=== PATIENT | male | born 1960 | race Caucasian/White ===

== ENCOUNTER 2024-07-02 21:09 | Inpatient (IN) ==
[2024-07-02 21:59] LABS: Albumin Globulin Ratio 1.4 (0.9-2); Albumin Level 3.8 gm/dl (3.4-5.0); Bilirubin,Total 0.8 mg/dl (0.2-1.0); Calcium 8.9 mg/dl (8.6-10.3); Creatinine Clr Calc Pharmacy 66.6 ml/min; Globulin 2.7 gm/dl (2.5-4.0); Potassium 3.9 mmol/L (3.5-5.1); Total Protein 6.5 gm/dl (6.0-8.3)
--- NOTE | 2024-07-02 22:10 | Emergency Department Note ---
Impression & Plan Post-operative infection ED Provider Note CHIEF COMPLAINT: Hand swelling and pain HISTORY OF PRESENT ILLNESS: This 63-year-old patient presents to the emergency department via private vehicle with his for evaluation of postsurgical complications of the right hand. The patient had a closed reduction, with internal fixation using 2 pins to repair a closed fracture of the right fifth metacarpal on 06/14. The patient states he went to his 2-week follow-up appointment with no complications. He states over the last few days he noted some swelling to the hand, and increased pain. He has been taking his 5 mg oxycodone more frequently, and was increasing the dose to 10 mg. He had contacted Dr. Schaffer, who is the orthopedic surgeon on his case. He was evaluated by Dr. Schaffer, however since that time the swelling has worsened. He reports drainage from the proximal pin insertion site, with increased redness that is now extending to the mid forearm. He denies fever. 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 REVIEW OF SYSTEMS: A review of systems was performed with positives and pertinent negatives listed in the history of present illness. All other systems were reviewed and are negative. ALLERGIES: See below MEDICATIONS: See below PMH: See below PHYSICAL EXAM: VITALS: Vitals are noted on the nurse's note and reviewed by myself. Vital signs stable. GENERAL: 63-year-old male, in no acute distress, nondiaphoretic, well-developed well-nourished. SKIN: Significant edema with erythema present to the entirety of the right hand, including all digits, and surfaces. Sanguinous drainage present from the insertion site of the proximal pin. Cellulitis is extending to the middle right forearm. HEART: Regular rate and rhythm without murmurs gallops or rubs. LUNGS: Clear to auscultation bilaterally without wheezes, rales or rhonchi. No retractions or accessory muscle use. MUSCULOSKELETAL: Patient unable to perform range of motion of the digits, or wrist of the right upper extremity. Tenderness to palpation extending from the mid forearm to the distal aspects of the digits of the hand. Capillary refill <3, sensation is intact to dull and sharp. Increased tenderness to palpation along the ulnar nerve. NEURO: Patient was alert and oriented to person place and time. No focal neurological deficits. MEDICAL DECISION MAKING: The patient is a pleasant 63-year-old male who arrives to the emergency department for evaluation of the above-stated complaint. A saline lock was established, CBC, CMP were obtained as well as x-ray imaging of the right hand. CBC shows leukocytosis, 14.7, with a stable hemoglobin and hematocrit, CMP does show slight hyponatremia at 130, with no other metabolic abnormality. X-ray imaging of the right hand per my interpretation shows significant soft tissue swelling, consistent with inflammation and likely infection. Culture was obtained from the surgical insertion site of the proximal pin for guidance on antimicrobial coverage. I spoke with Dr. Schaffer, from orthopedics who was agreeable to the plan of care including IV antibiotics, and pain control. Dr. Schaffer stated he would ideally like to see the patient in an outpatient setting tomorrow, as long as the patient's pain is under control. The patient was provided 2 doses of IV morphine, as well as 3 g of IV Ancef. After the initial dose of IV morphine, the patient had significant return of pain, more severe than upon arrival. A second dose was ordered which did control the patient's pain at that time. I do believe the patient requires hospital admission for IV antibiotics, as well as pain control. Dr. Schaffer agreed to the plan for admission to medicine with his consultation. The patient was agreeable to the plan of care as well. Contact was made with the [facility] hospitalist group, Dr. Denson who agreed to accept the patient under his care. Please refer to his documentation for further patient workup and treatment. DIFFERENTIAL DIAGNOSIS: Cellulitis, abscess, MRSA infection, DVT, necrotizing fasciitis, dermatitis, osteomyelitis, drug eruption, allergic reaction, as well as other pathologies. The chart was completed utilizing [employer] Speech voice recognition software. Grammatical errors, random word insertions, pronoun errors, and incomplete sentences are an occasional consequence of this system due to software limitations, ambient noise, and hardware issues. Any formal questions or concerns about the content, text, or information contained within the body of this dictation should be directly addressed to the physician for clarification. Past Med/Surg History Problem List (Updated 07/03/24 @ 02:27 by MASTER Fuchs) Post-operative infection (Acute) History of colon polyps Encounter for pre-operative examination Medical History BPH (benign prostatic hyperplasia) GERD (gastroesophageal reflux disease) History of colon polyps Surgical History Hx of vasectomy History of tooth extraction Hx of LASIK History of cataract surgery right/left History of hernia repair inguinal History of tonsillectomy History of colonoscopy Family History Uncle Family history of diabetes mellitus Grandmother (Paternal) Diabetes Family history of diabetes mellitus Father Hypertension Stroke Mother Lung cancer Grandfather (Maternal) Myocardial infarction Grandfather (Paternal) Myocardial infarction Other No family history of adverse response to anesthesia Denies family history of Ovarian cancer Prostate cancer Breast cancer Colorectal cancer Social History Smoking Status: Never smoker Second Hand Exposure: Yes ( A CHILD); Do You Dip or Chew Tobacco: No; Hx Alcohol Use: No Hx Substance Use: No Preferred Language: Jamaican Communication Ability: Effective Visual Impairment: Limited Hearing Ability: Normal 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 Beliefs That Will Affect Care: None marital status: Current Living Situation: Spouse current occupational status: employed current occupation: [employer] How many Children do You have: 4 Feels Safe at Home: Yes Childhood Exposure to Second-Hand Smoke: Yes Diet: regular caffeine: No Dental Care, Regularly: Yes Physical Activity Frequency: 3-4 Times per Week Seatbelt Use: always Sunscreen Use: Yes Assistive Devices: Glasses Allergies Allergies Allergy/AdvReac Type Severity Reaction Status Date / Time No Known Allergies Allergy Verified 06/14/24 11:07 Home Meds Home Medications Medication Instructions Recorded Confirmed celecoxib 200 mg capsule 200 mg PO BID PRN DIRECTED 07/02/24 07/02/24 oxycodone 5 mg tablet 5 mg PO UD PRN Pain 07/02/24 07/02/24 Results & Data (ED) Vital Signs Vital Signs - 24 hr 07/02/24 21:15 07/02/24 22:41 07/03/24 00:00 Temperature 36.8 C Temperature Source Temporal Artery Scan Pulse Rate 96 H Pulse Rate [Finger] 78 82 Respiratory Rate 16 16 19 Respiratory Effort / Characteristics Non-Labored Spontaneous Respiratory Depth Normal Blood Pressure 125/73 Blood Pressure [Left Arm] 124/74 167/85 H Blood Pressure Mean 90 Blood Pressure Mean [Left Arm] 90 112 Pulse Oximetry 93 94 92 Oxygen Delivery Method Room Air Room Air Sepsis Recent Fever Within 48 Hours No Sepsis New/Unexplained Change in Mental Status No Sepsis Action Taken by Nursing No Action Required Home Medications Current Medication List: was personally reviewed by me Laboratory Data Attestation: I reviewed the patient's lab results. 07/02/24 21:24 07/02/24 21:24 Lab Results 07/02/24 Range/Units 21:24 WBC 14.70 H (4.8-10.8) K/ul RBC 4.43 L (4.70-6.10) M/uL Hgb 13.8 L (14.0-18.0) g/dl Hct 39.9 L (42.0-52.0) % MCV 90.1 (80.0-100.0) fL MCH 31.2 (25.0-34.0) pg MCHC 34.6 (32.0-36.0) g/dL RDW Std Deviation 40.0 (36.4-46.3) fL RDW Coeff of Cali 12.0 (11.5-14.5) % Plt Count 157 (130-400) K/uL MPV 10.5 (9.4-12.4) fL Immature Gran % (Auto) 0.5 % Neut % (Auto) 91.0 % Lymph % (Auto) 2.0 % Pitkin % (Auto) 6.3 % Eos % (Auto) 0.0 % Baso % (Auto) 0.2 % Neut # (Auto) 13.37 H (1.40-6.50) K/uL Lymph # (Auto) 0.30 L (1.20-3.40) K/uL Pitkin # (Auto) 0.93 H (0.11-0.59) K/uL Eos # (Auto) 0.00 (0.00-0.50) K/uL Baso # (Auto) 0.03 (0.00-0.20) K/uL Immature Gran # (Auto) 0.07 (0.01-0.20) K/uL Sodium 130 L (136-145) mmol/L Potassium 3.9 (3.5-5.1) mmol/L Chloride 98 (98-107) mmol/L Carbon Dioxide 25 (21-32) mmol/L Anion Gap 7 (3-11) BUN 16 (6-23) mg/dl Creatinine 1.07 (0.6-1.4) mg/dl Est Cr Clr Drug Dosing 66.6 ml/min eGFR 77.49 BUN/Creatinine Ratio 15.0 (10-20) Glucose 111 H (70-99(Fasting)) mg/dl Calcium 8.9 (8.6-10.3) mg/dl Total Bilirubin 0.8 (0.2-1.0) mg/dl AST 30 (13-39) U/L ALT 25 (7-52) U/L Alkaline Phosphatase 68 (34-104) U/L Total Protein 6.5 (6.0-8.3) gm/dl Albumin 3.8 (3.4-5.0) gm/dl Globulin 2.7 (2.5-4.0) gm/dl Albumin/Globulin Ratio 1.4 (0.9-2) Administered Medications Morphine Sulfate (Morphine Sulfate 4 Mg/Ml 1 Ml Carp\Vial) 4 mg IV Q3H PRN PRN Reason: Severe Pain (Scale 7, 8, 9,10) Stop: 07/17/24 01:08 Last Admin: 07/03/24 01:31 Dose: 4 mg Documented By: KACEY Discontinued Medications Cefazolin Sodium 3,000 mg/ (Dextrose) 72.5 mls @ 145 mls/hr IV NOW STA Stop: 07/02/24 22:52 Last Infusion: 07/02/24 23:19 Dose: Infused Documented By: Admin: 07/02/24 22:38 Dose: 145 mls/hr Documented By: LISA Sodium Chloride (Nss) 1,000 mls @ 999 mls/hr IV .Q1H1M STA Stop: 07/03/24 02:16 Last Admin: 07/03/24 01:24 Dose: 999 mls/hr Documented By: KACEY Ceftriaxone Sodium (Rocephin) 2,000 mg in 50 mls @ 100 mls/hr IV ONE STA Stop: 07/03/24 01:43 Last Admin: 07/03/24 01:23 Dose: 100 mls/hr Documented By: KACEY Morphine Sulfate (Morphine Sulfate 4 Mg/Ml 1 Ml Carp\Vial) 4 mg IV NOW STA Stop: 07/02/24 22:17 Last Admin: 07/02/24 22:28 Dose: 4 mg Documented By: LISA Morphine Sulfate (Morphine Sulfate 4 Mg/Ml 1 Ml Carp\Vial) 4 mg IV NOW STA Stop: 07/03/24 00:29 Last Admin: 07/03/24 00:36 Dose: 4 mg Documented By: APOLINAR Imaging Data Attestation: I personally reviewed and interpreted this imaging study as follows: Radiologist's Impression: Hand X-Ray 07/02/24 22:10 Exam(s): XR RIGHT HAND, 3 views EXAM: XR Right Hand Complete, 3 Views CLINICAL HISTORY: Reason for exam: infection. TECHNIQUE: Frontal, lateral and oblique views of the right hand. COMPARISON: 06/13/2024 FINDINGS: Bones/joints: Mildly angulated intra-articular comminuted fracture of the fifth metatarsal base is treated with two percutaneously placed metallic needles. No acute fracture. No dislocation. Soft tissues: Demonstrates more dorsally soft tissue edema/swelling of the right hand, most likely postinflammatory/infectious in nature. . IMPRESSION: Significant soft tissue edema/swelling of the right hand more dorsally demonstrated, likely post inflammatory/infectious in nature. Recommend clinical correlation. Previously noted intra-articular comminuted fracture of the fifth metatarsal base is treated with 2 percutaneously placed metallic needles. . Electronically signed by: Velma Terry MD, GIANFRANCO 07/03/24 00:41 AM Discharge Plan Visit Data Chief Complaint: Referred by Doctor Stated Complaint: TEAM PHYS CALED FOR IV ANTIBOTIC ED Provider: Arden Pierre ED Midlevel Provider: Helene Albarado Discharge Problem: Post-operative infection Discharge Instructions Interventions: ED Discharge Assessment Last Done: 07/03/24 01:45 Discharge Problem: Post-operative infection Qualifiers: Encounter type: initial encounter Postoperative infection type: unspecified type Qualified Code(s): T81.40XA - Infection following a procedure, unspecified, initial encounter
[2024-07-02 22:14] LABS: Hematocrit (blood only) 39.9 % (42.0-52.0); Hemoglobin 13.8 g/dl (14.0-18.0); Mean Corpuscular Hemoglobin 31.2 pg (25.0-34.0); Mean Corpuscular Hgb Conc 34.6 g/dL (32.0-36.0); Mean Corpuscular Volume 90.1 fL (80.0-100.0); Mean Platelet Volume 10.5 fL (9.4-12.4); Platelet Count 157 K/uL (130-400); Red Blood Count 4.43 M/uL (4.70-6.10)
[2024-07-02] MEDS: MoRPHine SULFATE 4 MG/ML 1 ML CARP\\VIAL IV STA (22:28)
[2024-07-02] MEDS: ceFAZolin 3,000 MG in DEXTROSE 5% 50 ML IV STA (22:38)
[2024-07-02 22:49] LABS: Basophils # (auto) 0.03 K/uL (0.00-0.20); Basophils % (auto) 0.2 %; Immature Granulocytes # (auto) 0.07 K/uL (0.01-0.20); Immature Granulocytes % (auto) 0.5 %; Monocytes # (auto) 0.93 K/uL (0.11-0.59); Monocytes % (auto) 6.3 %; Neutrophils # (auto) 13.37 K/uL (1.40-6.50)
[2024-07-03] MEDS: MoRPHine SULFATE 4 MG/ML 1 ML CARP\\VIAL IV STA ×2 (00:36→02:59)
--- NOTE | 2024-07-03 00:42 | XRay Report ---
Exam(s): XR RIGHT HAND, 3 views EXAM: XR Right Hand Complete, 3 Views CLINICAL HISTORY: Reason for exam: infection. TECHNIQUE: Frontal, lateral and oblique views of the right hand. COMPARISON: 06/13/2024 FINDINGS: Bones/joints: Mildly angulated intra-articular comminuted fracture of the fifth metatarsal base is treated with two percutaneously placed metallic needles. No acute fracture. No dislocation. Soft tissues: Demonstrates more dorsally soft tissue edema/swelling of the right hand, most likely postinflammatory/infectious in nature. . IMPRESSION: Significant soft tissue edema/swelling of the right hand more dorsally demonstrated, likely post inflammatory/infectious in nature. Recommend clinical correlation. Previously noted intra-articular comminuted fracture of the fifth metatarsal base is treated with 2 percutaneously placed metallic needles. . Electronically signed by: Velma Terry MD, GIANFRANCO 07/03/24 00:41 AM
[2024-07-03] MEDS ORDERED: VANCOMYCIN CONSULT ACTIVE PRN ×2 (01:04→16:35)
[2024-07-03] MEDS ORDERED: MoRPHine SULFATE 2 MG/ML CARP IV PRN (01:09)
--- NOTE | 2024-07-03 01:14 | History & Physical Report ---
Date of Service July 03, 2024 Assessment & Plan (1) Post-operative infection: (2) Closed right hand fracture: Plan Postoperative wound infection right hand fracture with pin placement- Surgery took place 06/14/2024 Per patient history, he reports that the first 2 weeks there was no adverse symptoms Since that time he had gradually worsening pain until the past 3 days when it worsened considerably more, requiring oxycodone prescription to be called in He presented to the emergency department this evening due to weeping from his hand, and worsening pain and generalized ill symptoms X-ray shows soft tissue edema and appropriate metallic pin placement N.p.o. for possible procedure Acetaminophen 1 g IV every 8 hours as needed for mild pain or fever Morphine sulfate adjusted dosing 4 mg IV every 3 hours as needed for moderate pain Dilaudid 0.5 mg IV every 3 hours as needed for severe pain Zofran 4 mg IV every 6 hours as needed Given NSS 1 L bolus now, then maintenance fluids of NSS + KCl 20 mEq at 100 mL/h x 1 L Stop Ancef Vancomycin IV per pharmacokinetic monitoring Ceftriaxone 2 g IV every 24 hours Consult orthopedic surgery Dr. Schaffer, who is aware of the patient History of Present Illness Chief Complaint: The patient presents to the emergency department with worsening right hand pain, swelling and erythema over the past 5 days. He reports that he underwent orthopedic surgery on 06/14/2024, without incident for the first 2 weeks, and then started all some mild pain, that 3 days ago became more severe, reports a prescription for oxycodone was called in pharmacy. If come to the emergency department this evening with continued worsening of pain, but now is having oozing from his hand. Primary Care Provider: Angel Denise DO The patient is a 63-year-old male with past medical history significant for GERD, BPH,and colon polyps, who presents to the emergency department with signs and symptoms of postoperative wound infection right hand after having had surgery 06/14/24 and normal postop recovery for the first 2 weeks. He developed worsening symptoms as noted above, and came to the emergency department evening of 07/02-07/03 for further evaluation and treatment Allergies Allergy/AdvReac Type Severity Reaction Status Date / Time No Known Allergies Allergy Verified 06/14/24 11:07 Home Medications Medication Instructions Recorded Confirmed Type celecoxib 200 mg capsule 200 mg PO BID PRN DIRECTED 07/02/24 07/02/24 History oxycodone 5 mg tablet 5 mg PO UD PRN Pain 07/02/24 07/02/24 History Past Med/Surg History Problem List (Updated 07/03/24 @ 03:07 by Jean Carlos Denson MD) Closed right hand fracture Post-operative infection (Acute) History of colon polyps Encounter for pre-operative examination Medical History BPH (benign prostatic hyperplasia) GERD (gastroesophageal reflux disease) History of colon polyps Surgical History Hx of vasectomy History of tooth extraction Hx of LASIK History of cataract surgery right/left History of hernia repair inguinal History of tonsillectomy History of colonoscopy Family History Uncle Family history of diabetes mellitus Grandmother (Paternal) Diabetes Family history of diabetes mellitus Father Hypertension Stroke Mother Lung cancer Grandfather (Maternal) Myocardial infarction Grandfather (Paternal) Myocardial infarction Other No family history of adverse response to anesthesia Denies family history of Ovarian cancer Prostate cancer Breast cancer Colorectal cancer Social History Smoking Status: Never smoker Second Hand Exposure: Yes ( A CHILD); Do You Dip or Chew Tobacco: No; Hx Alcohol Use: Yes Alcohol type: wine Alcohol Intake Frequency: Monthly or Less Hx Substance Use: No Preferred Language: Setswana Communication Ability: Effective Visual Impairment: Limited Hearing Ability: Normal Flotation Tender Required: No Beliefs That Will Affect Care: None marital status: Current Living Situation: Spouse current occupational status: employed current occupation: [employer] How many Children do You have: 4 Feels Safe at Home: Yes Childhood Exposure to Second-Hand Smoke: Yes Diet: regular caffeine: No Dental Care, Regularly: Yes Physical Activity Frequency: 3-4 Times per Week Seatbelt Use: always Sunscreen Use: Yes Assistive Devices: Glasses Review of Systems Review of Systems: The patient denies chest pain, palpitations, shortness of breath, dyspnea on exertion, cough, lower extremity swelling, sore throat, fevers, chills, sweats, nausea, vomiting, diarrhea , constipation, abdominal pain, pelvic pain, blood in urine or stool, dysuria, urinary frequency or urgency, lightheadedness, dizziness, headache, memory loss, loss of consciousness, abnormal bruising or bleeding, imbalance, focal or generalized weakness, numbness or tingling in left arm or bilateral legs, generalized arthralgias or myalgias, back or neck pain, or night sweats. The review of systems is otherwise negative other than for that already noted above, and at least 10 systems have been reviewed. Physical Exam Physical Exam: The patient is awake, alert and oriented 3, well developed and well nourished, normocephalic and atraumatic, lying in bed and in no acute distress. HEENT--PERRL, EOMI, mucous membranes and oropharynx mildly dry. Neck--supple. No JVD. No bruits. Thyroid normal, trachea midline, no adenopathy. Heart--normal S1 and S2. No murmurs, rubs or gallops. Lungs--clear bilaterally, no respiratory distress, no accessory muscle use. Abdomen--normal bowel sounds and soft. Nontender. Nondistended, no hernias or masses, no organomegaly. Extremities--lower extremities no cyanosis or clubbing. No edema. There are good distal pulses b/l. Right hand with moderately severe swelling, erythema and warmth, with 2 pins laterally. Dermatologic--normal except for above related to right hand. No ascending lymphangitis noted Neurologic--cranial nerves II through XII grossly intact. Rheumatologic--normal range of motion. Psychiatric--normal affect. Results & Data Results & Data Vital Signs (Past 12 Hours) Vital Signs Temp Pulse Pulse Resp BP BP Pulse Ox 07/03/24 00:00 82 19 167/85 H 92 07/02/24 22:41 78 16 124/74 94 07/02/24 21:15 36.8 C 96 H 16 125/73 93 O2 Del Method 07/03/24 00:00 07/02/24 22:41 Room Air 07/02/24 21:15 Room Air Laboratory Results Laboratory Results WBC 14.70 K/ul (4.8-10.8) H 07/02/24 21:24 RBC 4.43 M/uL (4.70-6.10) L 07/02/24 21:24 Hgb 13.8 g/dl (14.0-18.0) L 07/02/24 21:24 Hct 39.9 % (42.0-52.0) L 07/02/24: MCV 90.1 fL (80.0-100.0) 07/02/24 21: MCH 31.2 pg (25.0-34.0) 07/02/24: MCHC 34.6 g/dL (32.0-36.0) 07/02/24: RDW Std Deviation 40.0 fL (36.4-46.3) 07/02/24: RDW Coeff of Cali 12.0 % (11.5-14.5) 07/02/24: Plt Count 157 K/uL (130-400) 07/02/24: MPV 10.5 fL (9.4-12.4) 07/02/24: Immature Gran % (Auto) 0.5 % 07/02/24: Neut % (Auto) 91.0 % 07/02/24: Lymph % (Auto) 2.0 % 07/02/24: Tripp % (Auto) 6.3 % 07/02/24: Eos % (Auto) 0.0 % 07/02/24: Baso % (Auto) 0.2 % 07/02/24: Neut # (Auto) 13.37 K/uL (1.40-6.50) H 07/02/24: Lymph # (Auto) 0.30 K/uL (1.20-3.40) L 07/02/24: Tripp # (Auto) 0.93 K/uL (0.11-0.59) H 07/02/24:24 Eos # (Auto) 0.00 K/uL (0.00-0.50) 07/02/24: Baso # (Auto) 0.03 K/uL (0.00-0.20) 07/02/24: Immature Gran # (Auto) 0.07 K/uL (0.01-0.20) 07/02/24 21: Sodium 130 mmol/L (136-145) L 07/02/24: Potassium 3.9 mmol/L (3.5-5.1) 07/02/24 21:24 Chloride 98 mmol/L (98-107) 07/02/24 21:24 Carbon Dioxide 25 mmol/L (21-32) 07/02/24 21:24 Anion Gap 7 (3-11) 07/02/24 21:24 BUN 16 mg/dl (6-23) 07/02/24 21:24 Creatinine 1.07 mg/dl (0.6-1.4) 07/02/24 21:24 Est Cr Clr Drug Dosing 66.6 ml/min 07/02/24 21:24 eGFR 77.49 07/02/24 21:24 BUN/Creatinine Ratio 15.0 (10-20) 07/02/24 21:24 Glucose 111 mg/dl (70-99(Fasting)) H 07/02/24 21:24 Calcium 8.9 mg/dl (8.6-10.3) 07/02/24 21:24 Total Bilirubin 0.8 mg/dl (0.2-1.0) 07/02/24 21:24 AST 30 U/L (13-39) 07/02/24 21:24 ALT 25 U/L (7-52) 07/02/24 21:24 Alkaline Phosphatase 68 U/L (34-104) 07/02/24 21:24 Total Protein 6.5 gm/dl (6.0-8.3) 07/02/24 21:24 Albumin 3.8 gm/dl (3.4-5.0) 07/02/24 21:24 Globulin 2.7 gm/dl (2.5-4.0) 07/02/24 21:24 Albumin/Globulin Ratio 1.4 (0.9-2) 07/02/24 21:24 Impressions Hand X-Ray 07/02/24 22:10 Exam(s): XR RIGHT HAND, 3 views EXAM: XR Right Hand Complete, 3 Views CLINICAL HISTORY: Reason for exam: infection. TECHNIQUE: Frontal, lateral and oblique views of the right hand. COMPARISON: 06/13/2024 FINDINGS: Bones/joints: Mildly angulated intra-articular comminuted fracture of the fifth metatarsal base is treated with two percutaneously placed metallic needles. No acute fracture. No dislocation. Soft tissues: Demonstrates more dorsally soft tissue edema/swelling of the right hand, most likely postinflammatory/infectious in nature. . IMPRESSION: Significant soft tissue edema/swelling of the right hand more dorsally demonstrated, likely post inflammatory/infectious in nature. Recommend clinical correlation. Previously noted intra-articular comminuted fracture of the fifth metatarsal base is treated with 2 percutaneously placed metallic needles. . Electronically signed by: Velma Terry MD, TAMEKAR 07/03/24 00:41 AM Code Status & VTE Plan Code Status Full code VTE Prophylaxis Plan VTE Prophylaxis will be ordered: Yes PG Care Time/CCT Total # of Minutes Spent Total Time Spent with Patient: Total time spent is greater than 50% in coordination of care (as documented) at patient's floor/unit and/or counseling patient: Coding Level of Care Code 78606 INT INP/OBS CARE 2/55MIN Diagnoses Post-operative infection T81.40XA Encounter type: initial encounter Postoperative infection type: unspecified type Closed right hand fracture S62.91XA (1) Post-operative infection Encounter type: initial encounter Postoperative infection type: unspecified type Qualified Code(s): T81.40XA - Infection following a procedure, unspecified, initial encounter
[2024-07-03] MEDS: cefTRIAXone SODIUM 2,000 MG/50 ML BAG IV STA (01:23)
[2024-07-03] MEDS: SODIUM CHLORIDE 0.9% 1,000 ML IV STA (01:24)
[2024-07-03] MEDS: MoRPHine SULFATE 4 MG/ML 1 ML CARP\\VIAL IV PRN ×2 (01:31→07:53)
[2024-07-03] MEDS ORDERED: ONDANSETRON INJ 2 MG/ML 2 ML VIAL IV PRN ×2 (02:12→11:53)
[2024-07-03] MEDS: VANCOMYCIN HCL 2,000 MG in SODIUM CHLORIDE 0.9% 500 ML IV STA (03:03)
[2024-07-03] MEDS: NSS + 20MEQ KCL 20 MEQ/1,000 ML BAG IV SCH (03:41)
[2024-07-03] MEDS: HYDROmorphone INJ 0.5 MG/0.5 ML SYR IV PRN (05:09)
--- NOTE | 2024-07-03 06:09 | Orthopedic Consultation ---
Date of Consultation July 03, 2024 Assessment & Plan (1) Post-operative infection: IMPRESSION: 2+ weeks s/p CRPP R 5th metacarpal fracture, that appears infected PLAN: Will obtain CT R hand to evaluate for abscess and osteiomylitis Keep NPO Continue IV Abx RICE Will plan at a minimum to remove the proximal pin at bedside after CT, but if abscess will plan on return to OR for removal of pin and I&D. Awaiting Gram stain and Cx results Continue pin care BID with 50:50 mix warm saline & peroxide. Continue care per Hospitalist service. History of Present Illness Reason for Consultation: Right Hand infection Requesting Physician: Venecia Schaffer MD Attending Physician: Jean Carlos Denson MD History of Present Illness 63 yo male s/p R 5th metacarpal CRPP 06/14/24 had increasing swelling of the hand and increased pain that worsened over the last few days despite increased pain medicine use. The proximal pin site started draining yesterday. He went to the ED and was admitted for IV antibiotics and pain control by the hospitalist service. He has been NPO since midnight. Allergies Allergy/AdvReac Type Severity Reaction Status Date / Time No Known Allergies Allergy Verified 06/14/24 11:07 Home Medications Medication Instructions Recorded Confirmed Type celecoxib 200 mg capsule 200 mg PO BID PRN DIRECTED 07/02/24 07/02/24 History oxycodone 5 mg tablet 5 mg PO UD PRN Pain 07/02/24 07/02/24 History Patient History Medical History BPH (benign prostatic hyperplasia) GERD (gastroesophageal reflux disease) History of colon polyps Surgical History Hx of vasectomy History of tooth extraction Hx of LASIK History of cataract surgery right/left History of hernia repair inguinal History of tonsillectomy History of colonoscopy Family History Uncle Family history of diabetes mellitus Grandmother (Paternal) Diabetes Family history of diabetes mellitus Father Hypertension Stroke Mother Lung cancer Grandfather (Maternal) Myocardial infarction Grandfather (Paternal) Myocardial infarction Other No family history of adverse response to anesthesia Denies family history of Ovarian cancer Prostate cancer Breast cancer Colorectal cancer Social History Smoking Status: Never smoker Second Hand Exposure: Yes ( A CHILD); Do You Dip or Chew Tobacco: No; Hx Alcohol Use: Yes Alcohol type: wine Alcohol Intake Frequency: Monthly or Less Hx Substance Use: No Preferred Language: Hungarian Communication Ability: Effective Visual Impairment: Limited Hearing Ability: Normal Engineering 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: No Beliefs That Will Affect Care: None marital status: Current Living Situation: Spouse current occupational status: employed current occupation: [employer] How many Children do You have: 4 Other Information That Helps Us Care for You: No Feels Safe at Home: Yes Safety Concerns: Feels Safe At This Time Childhood Exposure to Second-Hand Smoke: Yes Diet: regular caffeine: No Dental Care, Regularly: Yes Physical Activity Frequency: 3-4 Times per Week Seatbelt Use: always Sunscreen Use: Yes Assistive Devices: Glasses Assistive Devices Comment: Arm immobilzer Physical Exam Physical Exam: RUE: Sensation to light touch intact. Able to move thumb, IF, MF. BCR < 2 sec. Increased swelling from a day ago dorsum hand and digits. Pins in place. The proximal pin now with evidence of drainage. Proximal Jurgan ball with pressure on skin due to swelling. Hand is warm to touch, no significant erythema. Results & Data Vital Signs (Past 12 Hours) Vital Signs Temp Pulse Pulse Resp BP BP Pulse Ox 07/03/24 03:49 07/03/24 02:39 37.0 C 88 16 154/83 H 94 07/03/24 01:45 78 19 138/77 94 07/03/24 00:00 82 19 167/85 H 92 07/02/24 22:41 78 16 124/74 94 07/02/24 21:15 36.8 C 96 H 16 125/73 93 O2 Del Method 07/03/24 03:49 Room Air 07/03/24 02:39 Room Air 07/03/24 01:45 07/03/24 00:00 07/02/24 22:41 Room Air 07/02/24 21:15 Room Air Laboratory Results Laboratory Results WBC 14.70 K/ul (4.8-10.8) H 07/02/24 21:24 RBC 4.43 M/uL (4.70-6.10) L 07/02/24 21:24 Hgb 13.8 g/dl (14.0-18.0) L 07/02/24 21:24 Hct 39.9 % (42.0-52.0) L 07/02/24 21: MCV 90.1 fL (80.0-100.0) 07/02/24:24 MCH 31.2 pg (25.0-34.0) 07/02/24: MCHC 34.6 g/dL (32.0-36.0) 07/02/24: RDW Std Deviation 40.0 fL (36.4-46.3) 07/02/24: RDW Coeff of Cali 12.0 % (11.5-14.5) 07/02/24: Plt Count 157 K/uL (130-400) 07/02/24: MPV 10.5 fL (9.4-12.4) 07/02/24: Immature Gran % (Auto) 0.5 % 07/02/24: Neut % (Auto) 91.0 % 07/02/24: Lymph % (Auto) 2.0 % 07/02/24:24 Sherman % (Auto) 6.3 % 07/02/24: Eos % (Auto) 0.0 % 07/02/24: Baso % (Auto) 0.2 % 07/02/24:24 Neut # (Auto) 13.37 K/uL (1.40-6.50) H 07/02/24: Lymph # (Auto) 0.30 K/uL (1.20-3.40) L 07/02/24:24 Sherman # (Auto) 0.93 K/uL (0.11-0.59) H 07/02/24: Eos # (Auto) 0.00 K/uL (0.00-0.50) 07/02/24: Baso # (Auto) 0.03 K/uL (0.00-0.20) 07/02/24: Immature Gran # (Auto) 0.07 K/uL (0.01-0.20) 07/02/24: Sodium 130 mmol/L (136-145) L 07/02/24 21:24 Potassium 3.9 mmol/L (3.5-5.1) 07/02/24 21:24 Chloride 98 mmol/L (98-107) 07/02/24 21:24 Carbon Dioxide 25 mmol/L (21-32) 07/02/24 21:24 Anion Gap 7 (3-11) 07/02/24 21:24 BUN 16 mg/dl (6-23) 07/02/24 21:24 Creatinine 1.07 mg/dl (0.6-1.4) 07/02/24 21:24 Est Cr Clr Drug Dosing 66.6 ml/min 07/02/24 21:24 eGFR 77.49 07/02/24 21:24 BUN/Creatinine Ratio 15.0 (10-20) 07/02/24 21:24 Glucose 111 mg/dl (70-99(Fasting)) H 07/02/24 21:24 Calcium 8.9 mg/dl (8.6-10.3) 07/02/24 21:24 Total Bilirubin 0.8 mg/dl (0.2-1.0) 07/02/24 21:24 AST 30 U/L (13-39) 07/02/24 21:24 ALT 25 U/L (7-52) 07/02/24 21:24 Alkaline Phosphatase 68 U/L (34-104) 07/02/24 21:24 Total Protein 6.5 gm/dl (6.0-8.3) 07/02/24 21: Albumin 3.8 gm/dl (3.4-5.0) 07/02/24 21: Globulin 2.7 gm/dl (2.5-4.0) 07/02/24 21:24 Albumin/Globulin Ratio 1.4 (0.9-2) 07/02/24 21:24 Impressions Hand X-Ray 07/02/24 22:10 Exam(s): XR RIGHT HAND, 3 views EXAM: XR Right Hand Complete, 3 Views CLINICAL HISTORY: Reason for exam: infection. TECHNIQUE: Frontal, lateral and oblique views of the right hand. COMPARISON: 06/13/2024 FINDINGS: Bones/joints: Mildly angulated intra-articular comminuted fracture of the fifth metatarsal base is treated with two percutaneously placed metallic needles. No acute fracture. No dislocation. Soft tissues: Demonstrates more dorsally soft tissue edema/swelling of the right hand, most likely postinflammatory/infectious in nature. . IMPRESSION: Significant soft tissue edema/swelling of the right hand more dorsally demonstrated, likely post inflammatory/infectious in nature. Recommend clinical correlation. Previously noted intra-articular comminuted fracture of the fifth metatarsal base is treated with 2 percutaneously placed metallic needles. Electronically signed by: Velma Terry MD, GIANFRANCO 07/03/24 00:41 AM (1) Post-operative infection Encounter type: initial encounter Postoperative infection type: unspecified type Qualified Code(s): T81.40XA - Infection following a procedure, unspecified, initial encounter
[2024-07-03] MEDS: ACETAMINOPHEN 1,000 MG/100 ML VIAL IV PRN (07:31)
[2024-07-03 08:08] LABS: Hematocrit (blood only) 36.3 % (42.0-52.0); Hemoglobin 12.5 g/dl (14.0-18.0); Mean Corpuscular Hemoglobin 30.9 pg (25.0-34.0); Mean Corpuscular Hgb Conc 34.4 g/dL (32.0-36.0); Mean Corpuscular Volume 89.9 fL (80.0-100.0); Mean Platelet Volume 10.7 fL (9.4-12.4); Platelet Count 133 K/uL (130-400); RDW Coefficient of Variation 12.4 % (11.5-14.5); RDW Standard Deviation 40.8 fL (36.4-46.3); Red Blood Count 4.04 M/uL (4.70-6.10)
[2024-07-03] MEDS: OPTIRAY 320 100ml IV ONE (08:19)
[2024-07-03 08:24] LABS: BUN Creatinine Ratio 15.8 (10-20); Creatinine Clr Calc Pharmacy 75.7 ml/min; Phosphorus 1.6 mg/dl (2.5-4.9)
[2024-07-03 08:37] LABS: Basophils # (auto) 0.02 K/uL (0.00-0.20); Basophils % (auto) 0.2 %; Dohle Bodies 1+; Immature Granulocytes # (auto) 0.07 K/uL (0.01-0.20); Immature Granulocytes % (auto) 0.7 %; Lymphocytes # (auto) 0.27 K/uL (1.20-3.40); Lymphocytes % (auto) 2.6 %; Monocytes # (auto) 0.57 K/uL (0.11-0.59); Monocytes % (auto) 5.5 %; Neutrophils # (auto) 9.37 K/uL (1.40-6.50)
--- NOTE | 2024-07-03 10:06 | CT Scan Report ---
CT hand RT wo con HISTORY: 63 years-old Male Eval for abscess/osteomylitis acute pain of the right hand. Clinical conc gonzalo for soft tissue infection with possible abscess. COMPARISON: Radiographs 07/02/2024, 06/03/2024. TECHNIQUE: Multiple axial CT images of the right hand were obtained without IV contrast. Additional 3 -D rendered images were generated from a separate workstation. A dose lowering technique was used con sistent with the principals of RAMAN. FINDINGS: Subacute comminuted intra-articular fracture involving the base of the fifth metacarpal is redemonstr ated status post placement of two K wires which traverse the base of the fifth metacarpal. One of the K wires is oriented along the long axis of the metacarpal and distal tip extends into the hamate and capitate hamate articulation. The second transversely oriented K wire traverses the base of the fift h metacarpal and also extends into the base of the fourth metacarpal and partially into the base of t he third metacarpal. Alignment is unchanged from yesterday's radiographs. No additional acute fractur e or dislocation. 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 There is moderate diffuse subcutaneous and deep tissue edema. There is an ovoid intramuscular fluid c ollection of the volar hand which is noted along the volar base to mid shaft fifth metacarpal extendi ng in between the fourth and fifth metacarpals which measures 1.0 x 1.3 x 2.9 cm with peripheral enha ncement. IMPRESSION: 1. Fixated subacute comminuted intra-articular fifth metacarpal fracture. 2. Findings suggestive of moderate to extensive cellulitis with 2.9 cm probable abscess. ACT 112: Negative or not required by law. The above report was generated using voice recognition software. It may contain grammatical, syntax o r spelling errors. Electronically signed by: Jarred Alvarez M.D. 07/03/2024 10:04 AM
[2024-07-03] MEDS ORDERED: LIDOCAINE 2% 2 ML VIAL/AMP(20MG/ML) INFIL ONE (11:40)
[2024-07-03] MEDS ORDERED: ONDANSETRON INJ 2 MG/ML 2 ML VIAL ONE (11:40)
[2024-07-03] MEDS ORDERED: fentaNYL citrate PF 100 MCG/2 ML VIAL ONE ×3 (11:40→14:20)
[2024-07-03] MEDS ORDERED: PROPOFOL IV EMULSION 10 MG/ML 20 ML VIAL IV ONE (11:40)
[2024-07-03] MEDS ORDERED: MIDAZOLAM HCL 1 MG/ML 2ML VIAL ONE (11:40)
[2024-07-03] MEDS ORDERED: HYDROmorphone INJ 0.5 MG/0.5 ML SYR IV PRN (11:50)
[2024-07-03] MEDS ORDERED: HYDROmorphone INJ 1 MG/ML SYRINGE IV PRN (11:53)
[2024-07-03] MEDS ORDERED: ePHEDrine sulfate 50 MG/ML AMP IV PRN (11:53)
[2024-07-03] MEDS ORDERED: PROMETHAZINE HCL 6.25 MG in SODIUM CHLORIDE 0.9% 50 ML IV PRN (11:53)
[2024-07-03] MEDS ORDERED: fentaNYL citrate PF 100 MCG/2 ML VIAL IV PRN (11:53)
[2024-07-03] MEDS ORDERED: ATROPINE SULFATE 0.1 MG/ML 10ML SYR IV PRN (11:53)
--- NOTE | 2024-07-03 11:55 | Anesthesiology Consultation ---
Date of Service July 03, 2024 Assessment & Plan (1) Encounter for pre-operative examination: Chart Review Chart Review: Acceptable Risk for Surgery and Patient NOT seen in Pre Admission Testing Consults Requested none History Surgery Operation Date: 07/03/24 08:50 Proposed Procedures p Right Hand Incision and Drainage - Keith Rima Schaffer MD Height/Weight Height: 5 ft 5 in Weight: 78.1 kg Allergies Allergy/AdvReac Type Severity Reaction Status Date / Time No Known Allergies Allergy Verified 06/14/24 11:07 Medications Home Medications Medication Instructions Recorded Confirmed Last Taken celecoxib 200 mg capsule 200 mg PO BID PRN DIRECTED 07/02/24 07/02/24 Unknown oxycodone 5 mg tablet 5 mg PO UD PRN Pain 07/02/24 07/02/24 Unknown Active Medications Generic Name Dose Route Start Last Admin Trade Name Freq PRN Reason Stop Dose Admin Potassium Chloride/Sodium Chloride 20 meq in 1,000 mls @ 80 mls/hr 07/03/24 02:30 07/03/24 03:41 Normal Saline W/20 Meq Kcl IV 07/03/24 12:38 100 mls/hr .[id number] TOMY Administration Acetaminophen 1,000 mg in 100 mls @ 400 mls/hr 07/03/24 01:07 07/03/24 08:02 Ofirmev IV 07/06/24 01:06 Infused Q8H PRN Infusion Pain or Fever Past Medical History Medical History (Updated 07/03/24 @ 11:54 by Toan Gambino MD) Post-operative infection BPH (benign prostatic hyperplasia) GERD (gastroesophageal reflux disease) History of colon polyps Past Family History Family History Uncle Family history of diabetes mellitus Grandmother (Paternal) Diabetes Family history of diabetes mellitus Father Hypertension Stroke Mother Lung cancer Grandfather (Maternal) Myocardial infarction Grandfather (Paternal) Myocardial infarction Other No family history of adverse response to anesthesia Denies family history of Ovarian cancer Prostate cancer Breast cancer Colorectal cancer Past Surgical History Surgical History Hx of vasectomy History of tooth extraction Hx of LASIK History of cataract surgery right/left History of hernia repair inguinal History of tonsillectomy History of colonoscopy Social History Smoking Status: Never smoker Do You Dip or Chew Tobacco: No Hx Alcohol Use: Yes Alcohol type: wine alcohol intake frequency: holidays/special occasions only Hx Substance Use: No substance use type: does not use Physical Exam Vital Signs Last Vital Signs Temp 37.0 C 07/03/24 08:30 Pulse 80 07/03/24 07:23 Resp 18 07/03/24 07:23 BP 119/70 07/03/24 07:23 Pulse Ox 91 07/03/24 07:23 O2 Del Method Room Air 07/03/24 07:23 Testing Laboratory Results 07/03/24 06:52 07/03/24 06:52 07/02/24 Unknown Gram Stain - Final Hand Aerobic and Anaerobic Culture - Preliminary Staphylococcus aureus Electrocardiogram May 2011: sinus german with first degree AV block
--- NOTE | 2024-07-03 12:09 | Hospitalist Progress Note ---
Date of Service July 03, 2024 Assessment & Plan (1) Post-operative infection: Plan: Right hand after pinning of right fifth metacarpal fracture last month. Staph isolated on swab culture. Sensitivities pending. Continue intravenous vancomycin for now, day 2. Rocephin has been discontinued. Orthopedic consultation and recommendations appreciated. Incision and drainage procedure later today, July 03. CT scan has been ordered by orthopedics and remains pending. (2) Closed right hand fracture: Plan: Right fifth metacarpal fracture was repaired with pins last month. Plan If blood cultures are negative, he probably will be discharged on an oral antibiotic. If blood cultures are positive for staph pathogen, then he probably will need intravenous antibiotics for a while. Eventual discharge date to be determined. Admission and Anticipated Discharge Date Admission Date: July 03, 2024 Subjective Alert and oriented. Afebrile. Staph isolated from the swab culture on July 02. Sensitivities pending. Rocephin discontinued. He remains on vancomycin, day 2. Orthopedic consultation and recommendations appreciated. He will go to the operating room today for incision and drainage and removal of one of the pins from the right fifth metacarpal. CT scan ordered and pending. Blood cultures have also been ordered Review of Systems 2 Review of Systems: Constitutionalno fever. No shaking chills since antibiotics started upon arrival ENTno blurred vision, no double vision, no epistaxis, no sore throat Respiratoryno cough, no wheezing, no shortness of breath Cardiacno palpitations, no chest pain, no syncope Jeff nausea, vomiting, diarrhea, melena, hematochezia GUno urinary retention, no urinary incontinence, no dysuria, no hematuria Musculoskeletaltender swollen right hand and markedly tender right forearm Skinno bruising, no rashes, no pruritus Neurono isolated weakness, no paresthesia Psychno depression, no anxiety Physical Exam 2 Physical Exam: General-alert and oriented x3, no fever HEENT-head atraumatic and normocephalic, pupils equal and reactive to light, extraocular muscles intact Neck-no lymphadenopathy or thyromegaly, trachea midline Chest-clear to auscultation. No rales, wheezing or rhonchi Cardiac-regular rate and rhythm, normal S1 and S2 Abdomen-normal bowel sounds, no hepatosplenomegaly Extremities-right hand is swollen, erythemic, and tender dorsally. Markedly tender right forearm also. To exposed white beads where the pins are on the dorsal aspect of the right hand Neuro-cranial nerves II through XII intact, motor and sensory function within normal limits, strength symmetrical, no focal deficits Psych-normal affect, normal mood Results & Data Results & Data Vital Signs (Past 12 Hours) Vital Signs Temp Pulse Pulse Resp BP BP Pulse Ox 07/03/24 08:30 37.0 C 07/03/24 07:23 38.3 C H 80 18 119/70 91 07/03/24 03:49 07/03/24 02:39 37.0 C 88 16 154/83 H 94 07/03/24 01:45 78 19 138/77 94 O2 Del Method 07/03/24 08:30 07/03/24 07:23 Room Air 07/03/24 03:49 Room Air 07/03/24 02:39 Room Air 07/03/24 01:45 Laboratory Results 07/03/24 06:52 07/03/24 06:52 PG Care Time/CCT Total # of Minutes Spent Total Time Spent with Patient: Total time spent is greater than 50% in coordination of care (as documented) at patient's floor/unit and/or counseling patient: Coding Level of Care Code 23293 SUB INP/OBS CARE 3/50MIN Diagnoses Post-operative infection T81.40XA Encounter type: initial encounter Postoperative infection type: unspecified type Closed right hand fracture S62.91XA (1) Post-operative infection Encounter type: initial encounter Postoperative infection type: unspecified type Qualified Code(s): T81.40XA - Infection following a procedure, unspecified, initial encounter
[2024-07-03] MEDS: SODIUM CHLORIDE 0.9% 1,000 ML IV SCH (12:14)
[2024-07-03] MEDS ORDERED: KETAMINE HCL 10MG/ML SYR ONE (12:56)
[2024-07-03] MEDS: VANCOMYCIN HCL 1000MG/20ML VIAL ONE (13:13)
[2024-07-03] MEDS: GENTAMICIN SULFATE 40 MG/ML 2 ML VIAL ONE (13:14)
[2024-07-03] MEDS: LIDOCAINE 1%/EPINEPHRINE 1:100,000 50 ML VIAL ONE (14:01)
[2024-07-03] MEDS: BUPIVACAINE 0.5 % 5 MG/1 ML MPF 30ML VIAL ONE (14:02)
--- NOTE | 2024-07-03 14:05 | Pharmacy Report ---
Pharmacy PK ABX Note - Date of Service July 03, 2024 - Assessment and Plan Assessment * Mr Miles is a 63 year old M receiving vancomycin for treatment of post-op infection. Pt is s/p R fifth metacarpal fracture and surgery 06/14/24. * Pertinent microbiologic data includes: Staph present on hand Cx * CT of hand: Findings suggestive of moderate to extensive cellulitis with 2.9 cm probable abscess. * Pt scheduled for I&D in the OR today. Plan Vancomycin * Loading dose: 2000 mg IV x 1 * Maintenance dose: 1500 mg IV every 24 hours * Regimen is predicted to achieve target AUC/RENZO of 400-600 mg/L.hr * Will order a vanc level closer to steady-state if pt remains hospitalized Pharmacy will continue to follow and will adjust dose/frequency as necessary. Thank you. Pharmacy has transitioned to AUC monitoring for vancomycin. AUC/RENZO is the preferred PK/PD target and is associated with decreased risk of nephrotoxicity compared to traditional trough targets.
--- NOTE | 2024-07-03 14:27 | Post Operative Brief Note ---
Immediate Post Op Note Date of Surgery July 03, 2024 Pre & Post Diagnosis Operation Date: 07/03/24 08:50 Pre-Op Diagnosis: RIGHT HAND POST OP INFECTION Post-Op Diagnosis: RIGHT HAND POST OP INFECTION I identified the patient and participated in the time-out.: Yes Procedure Operation Date: 07/03/24 08:50 Actual Procedures p Right Hand Incision and Drainage, placement of antibiotic beads(Right) - Keith Schaffer MD Surgeon Keith Schaffer MD Diabetes Nurse Nuno Melchor DO Estimated Blood Loss 12 Findings Consistent with Post-Op Diagnosis Fluids 900 cc Specimens Right hand Gram Stain & Cx x 3 Right hand specimen pathology Drains Other (Iodoform gauze ) Complications none
--- NOTE | 2024-07-03 14:30 | Operative Report ---
Post Operative Report Pre & Post Diagnosis Operation Date: 07/03/24 08:50 Pre-Op Diagnosis: RIGHT HAND POST OP INFECTION Post-Op Diagnosis: RIGHT HAND POST OP INFECTION I identified the patient and participated in the time-out.: Yes Procedure Operation Date: 07/03/24 08:50 Actual Procedures p Right Hand Incision and Drainage, placement of antibiotic beads, Removal Orthopedic hardware x 1 (Right) - Keith Schaffer MD Surgeon Keith Schaffer MD Body Mechanic Nuno Melchor DO Estimated Blood Loss 12 Findings See Below 7 cm incision, Deep infection, andrew pus, between 4th & 5th Metacarpal, and involved proximal pin tract. The bone was solid. Fibrinous soft tissue along proximal pin tract. Fluids 900 cc Specimens Right hand Gram Stain & Cx x 3 Right hand specimen for pathology Drains Iodoform gauze Anesthesia Type General Complications none Indications The patient has acute draining wound from their right hand, proximal pin site that appears infected now. The patient understands the risks of surgery, which include but are not limited to: bleeding, infection, re-operation, damage to nerves and arteries, continued pain and DVT. The patient understands all of these instructions and explanations, all of their questions have been satisfactorily addressed. The patient has elected to proceed with surgery and the informed consent was signed. Description of Procedure The patient was taken to the Operating Room and placed in the supine position on the operating table. After general anesthetic was administered a mul tidisciplinary time-out was performed identifying my initials on the right hand as the correct and operative limb. He is currently on a regime of IV antibiotics. The right hand was prepped and draped in the usual Orthopaedic sterile fashion. A planned dorsal incision was drawn between the 4th & 5th Metacarpals. The skin edges were injected with a 50:50 mixture of 1% lidocaine and 0.5 % Marcaine with epi for a total of 7 cc. The incision was carried down to the extensor mechanism. The soft tissue between the 4th & 5th was incised and blunt dissection was continued volarly, exposing the 5th metacarpal, a proximal superficial and deep distal cultures were taken. After further milking of the palm, andrew purulence was expressed into the wound and another culture was taken. The proximal K-wire was removed with heavy pliers. The soft tissue tunnel was debrided with curet and rongeur. Again with milking the hand at the base of the 5th metacarpal additional purulent material was removed. Any devitalized, necrotic soft tissue was removed with curet and rongeur. The wound was copiously irrigated with over 3 L normal saline. Following irrigation and debridement there was healthy viable red beefy tissue that was bleeding. Then Stimulan beads with Vancomycin and Gentamicin were placed between the 4th & 5th metacarpals, and laterally adjacent to the 5th metacarpal base near the previous proximal pin. Iodoform gauze was placed through the proximal pin site tunnel. The skin were closed with 3-0 Nylon. The wound was covered Xeroform, 4 x 4's, ABDs, sterile cast padding, ulnar gutter splint, and an ALBARO. The sponge and needle counts were correct. POST-OP: Patient will be re-admitted and continued on IV Vancomycin until seen by infectious disease. I attest to the content of the Intraoperative Record and any orders documented therein. Any exceptions are noted below.
[2024-07-03] MEDS: ALBUT/IPRATROP 3MG/0.5MG NEB 3 ML VIAL NEB STA (14:36)
--- NOTE | 2024-07-03 14:40 | Operative Report ---
Post Operative Report Pre & Post Diagnosis Operation Date: 07/03/24 08:50 Pre-Op Diagnosis: RIGHT HAND POST OP INFECTION Post-Op Diagnosis: RIGHT HAND POST OP INFECTION I identified the patient and participated in the time-out.: Yes Procedure Operation Date: 07/03/24 08:50 Actual Procedures p Right Hand Incision and Drainage, placement of antibiotic beads, Removal of hardware(Right) - Keith Schaffer MD Surgeon Keith Schaffer MD Group Sales Manager Nuno Melchor DO Estimated Blood Loss 12 Findings Consistent with Post-Op Diagnosis Specimens Right hand Gram Stain & Cx x 3 Right hand specimen for pathology Description of Procedure Patient was brought to the operative suite where he underwent anesthesia. The right upper extremity was prepped and draped in the usual sterile fashion. A surgical timeout was performed. Patient underwent a right hand irrigation and debridement with removal of hardware and placement of antibiotic beads. Please see Dr. Schaffer's operative report for full details. I was present and assisted with patient positioning, limb positioning, surgical approach, hemostasis, irrigation debridement of the infected tissue, hardware removal, wound closure, postoperative dressing and splint placement. The patient was awakened and taken to the recovery room in satisfactory condition. I attest to the content of the Intraoperative Record and any orders documented therein. Any exceptions are noted below.
--- NOTE | 2024-07-03 15:09 | XRay Report ---
XR hand RT min 3V routine HISTORY: 63 years-old Male post op right hand I D; fracture incision and drainage of the right hand COMPARISON: CT of same day TECHNIQUE: 4 views of the right hand FINDINGS: Status post removal of the transversely oriented K wire with persistent longitudinally oriented K wir e in place. Unchanged positioning of the comminuted fifth metacarpal base fracture. Persistent soft t issue swelling. Status post placement of antibiotic seeds within the medial hand. Overlying cast limi ts the study. IMPRESSION: Postoperative findings as above. ACT 112: Negative or not required by law. The above report was generated using voice recognition software. It may contain grammatical, syntax o r spelling errors. Electronically signed by: Jarred Alvarez M.D. 07/03/2024 3:07 PM
--- NOTE | 2024-07-03 15:40 | Anesthesiology Progress Note ---
Date of Service July 03, 2024 Anesthesia Post Procedure Vital Signs Vital Signs: Temp Pulse Pulse Pulse Resp BP BP 07/03/24 15:20 36.8 C 80 19 136/86 07/03/24 15:10 75 22 120/84 07/03/24 15:00 76 11 L 140/91 07/03/24 14:50 77 14 138/93 07/03/24 14:40 78 12 127/91 07/03/24 14:34 37.2 C 95 H 16 146/90 H 07/03/24 12:10 37.3 C 71 20 122/73 07/03/24 08:30 37.0 C 07/03/24 07:23 38.3 C H 80 18 119/70 07/03/24 03:49 07/03/24 02:39 37.0 C 88 16 154/83 H 07/03/24 01:45 78 19 138/77 07/03/24 00:00 82 19 167/85 H 07/02/24 22:41 78 16 124/74 07/02/24 21:15 36.8 C 96 H 16 125/73 Pulse Ox O2 Del Method O2 Flow Rate 07/03/24 15:20 90 Room Air 07/03/24 15:10 93 Oxymask 2 07/03/24 15:00 96 Oxymask 4 07/03/24 14:50 96 Oxymask 4 07/03/24 14:40 98 Nebulizer 6 07/03/24 14:34 94 Oxymask 10 07/03/24 12:10 94 Room Air 07/03/24 08:30 07/03/24 07:23 91 Room Air 07/03/24 03:49 Room Air 07/03/24 02:39 94 Room Air 07/03/24 01:45 94 07/03/24 00:00 92 07/02/24 22:41 94 Room Air 07/02/24 21:15 93 Room Air Pain Intensity Right Hand: Pain Intensity: 9 Transfer of Care Handoff Completed per policy Notes Mental Status: alert / awake / arousable and participated in evaluation Patient Amnestic to Procedure: Yes Nausea / Vomiting: adequately controlled Pain: adequately controlled Airway Patency, RR, SpO2: stable & adequate BP & HR: stable & adequate Hydration State: stable & adequate Anesthetic Complications: no major complications apparent and Pt Satisfied with anesthetic care
[2024-07-03] MEDS ORDERED: TAMSULOSIN HCL 0.4 MG CAP PO PRN (15:58)
[2024-07-03] MEDS ORDERED: NALOXONE HCL 0.4 MG/1 ML VIAL/CARP IV PRN (15:58)
[2024-07-03] MEDS ORDERED: bisacodyL 10 MG SUPP PR PRN (15:58)
[2024-07-03] MEDS: FAMOTIDINE/PF 20 MG/2 ML VIAL IV ONE (15:59)
[2024-07-03] MEDS: ALBUT/IPRATROP 3MG/0.5MG NEB 3 ML VIAL ONE (15:59)
[2024-07-03] MEDS: VANCOMYCIN HCL 1,500 MG in SODIUM CHLORIDE 0.9% 500 ML IV SCH ×2 (16:00→21:29)
[2024-07-03] MEDS: oxyCODONE HCL IR 5 MG TAB (IMMEDIATE RELEASE) PO PRN (16:44)
[2024-07-03] MEDS: HYDROmorphone INJ 1 MG/ML SYRINGE IV STA (18:22)
[2024-07-03] MEDS: HYDROmorphone INJ 1 MG/ML SYRINGE IV PRN (21:18)
[2024-07-03] MEDS: DOCUSATE SODIUM 100 MG CAP PO SCH (21:29)
[2024-07-04] MEDS ORDERED: cefTRIAXone SODIUM 2,000 MG/50 ML BAG IV SCH (02:00)
[2024-07-04] MEDS: HYDROmorphone INJ 1 MG/ML SYRINGE IV STA ×2 (02:17→09:43)
[2024-07-04 04:38] LABS: Basophils # (auto) 0.05 K/uL (0.00-0.20); Basophils % (auto) 0.6 %; Eosinophils # (auto) 0.01 K/uL (0.00-0.50); Eosinophils % (auto) 0.1 %; Hematocrit (blood only) 33.5 % (42.0-52.0); Hemoglobin 11.3 g/dl (14.0-18.0); Immature Granulocytes # (auto) 0.05 K/uL (0.01-0.20); Immature Granulocytes % (auto) 0.6 %; Lymphocytes # (auto) 0.35 K/uL (1.20-3.40); Mean Corpuscular Hemoglobin 30.8 pg (25.0-34.0); Mean Corpuscular Hgb Conc 33.7 g/dL (32.0-36.0); Mean Corpuscular Volume 91.3 fL (80.0-100.0); Mean Platelet Volume 10.3 fL (9.4-12.4); Monocytes # (auto) 0.89 K/uL (0.11-0.59); Monocytes % (auto) 10.2 %; Neutrophils # (auto) 7.36 K/uL (1.40-6.50); Neutrophils % (auto) 84.5 %; Platelet Count 118 K/uL (130-400); RDW Coefficient of Variation 12.3 % (11.5-14.5); RDW Standard Deviation 41.4 fL (36.4-46.3); Red Blood Count 3.67 M/uL (4.70-6.10); White Blood Count 8.71 K/ul (4.8-10.8)
[2024-07-04 04:55] LABS: BUN Creatinine Ratio 13.7 (10-20); Calcium 7.8 mg/dl (8.6-10.3); Creatinine Clr Calc Pharmacy 70.5 ml/min
--- NOTE | 2024-07-04 09:20 | Infectious Disease Consult ---
Date of Consultation July 04, 2024 Assessment & Plan (1) Staph aureus infection: (2) Post-operative infection: (3) Closed right hand fracture: Plan 63yo M, right hand dominant, with h/o BPH, GERD, right 5th metacarpal fracture in May after punching a table s/p closed reduction percutaneous pinning on 06/14 who presented on 07/02 with worsening right hand pain, swelling, and redness x 5 days. 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 Here he was febrile to 38.3, BP stable. Exam noted with significant edema with erythema of the enitrey of right hand including digits an surfaces, sanguinous drainage from insertion of proximal pin, redness extending to middle of right forearm. Initial labs with WBC 14.7, Cr 1.07, LFT wnl. Swab cx with S aureus. CT hand with fixated subacute comminuted intra-articular fifth metacarpal fracture, findings suggestive of moderate to extensive cellulitis with 2.9cm probable abscess (ovoid intramuscular fluid collection of the volar hand which is noted along the volar base to mid-shaft fifth metacarpal, extending between fourth and fifth metacarpal). S/p OR 07/03 and underwent right hand I+D, placement of antibiotic beads, and removal of hardware x 1 (per op note, proximal K wire was removed, soft tissue tunnel debrided). Postop XR with one remaining longitudinal K wire. He has received vancomycin and CTX. ID consulted 07/04. Discussed with Dr. Schaffer. The proximal pin was involved, purulence appeared to be near the proximal pin and likely surrounding fracture site. Given possible involvement of the longitudinal pin, plan to keep on antibiotics for a longer duration or until the pin is removed. If pin is planned to be removed soon (patient said its supposed to be out in a week), then duration will be at least 2 weeks. If pin is to remain in place for a longer period of time, then duration of treatment would be 4 weeks with suppression afterwards until pin is removed. Initial cx on 07/02 with MSSA and now growth of a second S aureus. I had initially changed to cefazolin but added back back vancomycin for possible MRSA. # Right hand postop infection s/p debridement and 1 pin removal cx so far with MSSA and S aureus #2 # Right hand/forearm cellulitis # H/o R 5th metacarpal fracture s/p CRPP - f/u all cultures - continue vancomycin pharmacy dosed protocol - cefazolin 2g IV q8h - will adjust pending results of cultures - Favor inpatient IV antibiotics until there is some more clinical improvement of his swelling/cellulitis - plan will be for PO regimen longer (ie up to 4 weeks with suppression after) if second pin is to remain in place for a long period of time; shorter duration (ie 2 weeks) if second pin is removed sooner ID will continue to follow. If questions or concerns, contact via [employer] or Infectious Disease Call Center . Debra Terry MD [facility], Division of Infectious Diseases Consultation Information Consultation was provided via telemedicine using two-way real-time interactive telecommunication between the patient and the telemedicine provider. For the duration of the visit, the provider was performing the assessment from a different facility than the patient. This includesuse of bluetooth stethoscope forauscultationperformed by the telepresenter that the telemedicine provider can hear if described in the physical exam. Linen Room Attendant contact information: Please call [facility] Connect Call Center . (Phone Number For Physician Use Only) After establishing a telemedicine visit, patient was: Patient was verified with two unique identifiers, Patient/authorized rep acknowledged consent and understanding and Gave permission to continue telehealth session Time Spent with Patient: Initial => 75 min History of Present Illness Reason for Consultation: right hand abscess, s/p perc pinning/ I&D 07/03 Attending Physician: Dima Wooten MD History of Present Illness 63yo M, right hand dominant, with h/o BPH, GERD, right 5th metacarpal fracture in May after punching a table s/p closed reduction percutaneous pinning on 06/14 who presented on 07/02 with worsening right hand pain, swelling, and redness x 5 days. He had been doing well postop for the first 2 weeks and then developed some mild pain that became worse 3 days prior. He also noted having oozing from his hand. 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 Here he was febrile to 38.3, BP stable. Exam noted with significant edema with erythema of the enitrey of right hand including digits an surfaces, sanguinous drainage from insertion of proximal pin, redness extending to middle of right forearm. Initial labs with WBC 14.7, Cr 1.07, LFT wnl. Swab cx with S aureus. CT hand with fixated subacute comminuted intra-articular fifth metacarpal fracture, findings suggestive of moderate to extensive cellulitis with 2.9cm probable abscess (ovoid intramuscular fluid collection of the volar hand which is noted along the volar base to mid-shaft fifth metacarpal, extending between fourth and fifth metacarpal). S/p OR 07/03 and underwent right hand I+D, placement of antibiotic beads, and removal of hardware x 1 (per op note, proximal K wire was removed, soft tissue tunnel debrided). Postop XR with one remaining longitudinal K wire. He has received vancomycin and CTX. ID consulted 07/04. On evaluation, patient reports that he has pain in his right hand and arm, particularly in the distribution of the ulnar nerve. He has numbness in his fingers. No other joint pain or rashes. No abdominal pain, vomiting, diarrhea. Allergies Allergy/AdvReac Type Severity Reaction Status Date / Time No Known Allergies Allergy Verified 06/14/24 11:07 Home Medications Medication Instructions Recorded Confirmed Type celecoxib 200 mg capsule 200 mg PO BID PRN DIRECTED 07/02/24 07/02/24 History oxycodone 5 mg tablet 5 mg PO UD PRN Pain 07/02/24 07/02/24 History Patient History Medical History (Updated 07/04/24 @ 12:17 by Debra Terry MD) Post-operative infection BPH (benign prostatic hyperplasia) GERD (gastroesophageal reflux disease) History of colon polyps Surgical History Hx of vasectomy History of tooth extraction Hx of LASIK History of cataract surgery right/left History of hernia repair inguinal History of tonsillectomy History of colonoscopy Family History Uncle Family history of diabetes mellitus Grandmother (Paternal) Diabetes Family history of diabetes mellitus Father Hypertension Stroke Mother Lung cancer Grandfather (Maternal) Myocardial infarction Grandfather (Paternal) Myocardial infarction Other No family history of adverse response to anesthesia Denies family history of Ovarian cancer Prostate cancer Breast cancer Colorectal cancer Social History Smoking Status: Never smoker Second Hand Exposure: Yes ( A CHILD); Do You Dip or Chew Tobacco: No; Hx Alcohol Use: Yes Alcohol type: wine Alcohol Intake Frequency: Monthly or Less Hx Substance Use: No Preferred Language: Croatian Communication Ability: Effective Visual Impairment: Limited Hearing Ability: Normal Final Touch Up Painter Required: No Beliefs That Will Affect Care: None marital status: Current Living Situation: Spouse current occupational status: employed current occupation: [employer] How many Children do You have: 4 Other Information That Helps Us Care for You: No Feels Safe at Home: Yes Safety Concerns: Feels Safe At This Time Childhood Exposure to Second-Hand Smoke: Yes Diet: regular caffeine: No Dental Care, Regularly: Yes Physical Activity Frequency: 3-4 Times per Week Seatbelt Use: always Sunscreen Use: Yes Assistive Devices: Glasses Assistive Devices Comment: Arm immobilzer Review of System 10-point review of systems reviewed and are negative except for as above. Physical Exam Physical Exam: General: Awake, alert, no acute distress HEENT: NC/AT, EOMI, mmm Neck: supple Lungs: respirations non-labored Heart: nl peripheral perfusion Abdomen: soft, NT/ND Ext: right arm with erythema on dorsal hand, significant hand swelling, light redness coming down forearm Neuro: moving all extremities Results & Data Vital Signs (Past 12 Hours) Vital Signs Temp Pulse Resp BP Pulse Ox O2 Del Method O2 Flow Rate 07/04/24 07:39 36.7 C 62 18 122/72 92 Nasal Cannula 2 07/04/24 04:15 36.5 C 07/04/24 02:59 37.8 C H 90 16 115/64 91 Nasal Cannula 2 07/03/24 23:00 36.8 C 73 18 110/68 91 Room Air Laboratory Results Labs reviewed. Diagnostic Findings Imaging reviewed. (2) Post-operative infection Encounter type: initial encounter Postoperative infection type: unspecified type Qualified Code(s): T81.40XA - Infection following a procedure, unspecifi ed, initial encounter
[2024-07-04] MEDS: ceFAZolin 2000MG 2,000 MG/15 ML SYR IV SCH (10:15)
--- NOTE | 2024-07-04 11:19 | Hospitalist Progress Note ---
Date of Service July 04, 2024 Assessment & Plan (1) Post-operative infection: Plan: Right hand after pinning of right fifth metacarpal fracture last month. Staph isolated on swab culture. Sensitivities show this to be MSSA. Infectious disease consultation appreciated. He is now on Ancef 2 g IV every 8 hours. He has given verbal consent for PICC line placement for continued home IV antibiotic coverage. Orthopedic consultation and recommendations appreciated. Incision and drainage procedure completed on July 03. Postoperative day #1. CT scan of the right hand revealed evidence of infection and abscess preoperatively. Right upper extremity venous Doppler ordered and pending to rule out underlying DVT (2) Closed right hand fracture: Plan: Right fifth metacarpal fracture was repaired with pins last month. Plan Eventual discharge to home on continued IV antibiotics. He has given consent for PICC line placement. Admission and Anticipated Discharge Date Admission Date: July 03, 2024 Subjective Alert and oriented. Exquisitely tender right hand and right arm. Fortunately cultures reveal staph to be MSSA. Infectious disease has switched antibiotic therapy to Ancef 2 g IV every 8 hours. He has given verbal consent for PICC line placement for home IV therapy. Venous Doppler study of the right upper extremity has been requested. Sodium improved to 132. White blood cell count is down to 8000. Continue pain management measures with intravenous Dilaudid which seems to help Review of Systems 2 Review of Systems: Constitutionalno fever. No shaking chills since antibiotics started upon arrival ENTno blurred vision, no double vision, no epistaxis, no sore throat Respiratoryno cough, no wheezing, no shortness of breath Cardiacno palpitations, no chest pain, no syncope Jeff nausea, vomiting, diarrhea, melena, hematochezia GUno urinary retention, no urinary incontinence, no dysuria, no hematuria Musculoskeletaltender swollen right hand and right forearm with marked tenderness Skinno bruising, no rashes, no pruritus Neurono isolated weakness, no paresthesia Psychno depression, no anxiety Physical Exam 2 Physical Exam: General-alert and oriented x3, no fever HEENT-head atraumatic and normocephalic, pupils equal and reactive to light, extraocular muscles intact Neck-no lymphadenopathy or thyromegaly, trachea midline Chest-clear to auscultation. No rales, wheezing or rhonchi Cardiac-regular rate and rhythm, normal S1 and S2 Abdomen-normal bowel sounds, no hepatosplenomegaly Extremities-right hand is swollen, erythemic, and tender dorsally. Markedly tender right forearm also. 1 exposed white bead covering the exposed pin. The other pin and bead have been removed. Neuro-cranial nerves II through XII intact, motor and sensory function within normal limits, strength symmetrical, no focal deficits Psych-normal affect, normal mood Results & Data Results & Data Vital Signs (Past 12 Hours) Vital Signs Temp Pulse Resp BP Pulse Ox O2 Del Method O2 Flow Rate 07/04/24 07:39 36.7 C 62 18 122/72 92 Nasal Cannula 2 07/04/24 04:15 36.5 C 07/04/24 02:59 37.8 C H 90 16 115/64 91 Nasal Cannula 2 Laboratory Results 07/04/24 04:03 07/04/24 04:03 PG Care Time/CCT Total # of Minutes Spent Total Time Spent with Patient: Total time spent is greater than 50% in coordination of care (as documented) at patient's floor/unit and/or counseling patient: Coding Level of Care Code 62808 SUB INP/OBS CARE 2/35MIN Diagnoses Post-operative infection T81.40XA Encounter type: initial encounter Postoperative infection type: unspecified type Closed right hand fracture S62.91XA (1) Post-operative infection Encounter type: initial encounter Postoperative infection type: unspecified type Qualified Code(s): T81.40XA - Infection following a procedure, unspecified, initial encounter
--- NOTE | 2024-07-04 11:20 | Orthopedic Progress Note ---
Date of Service July 04, 2024 Assessment & Plan (1) Post-operative infection: Plan: Postop day #1 status post right hand incision and drainage, placement of antibiotic beads, removal orthopedic hardware. Had increase in swelling in hand overnight. Not complaining of any worse pain then he has been experiencing over the past few days, no new paresthesias, but does have ongoing paresthesias in the fingers likely secondary to swelling. Majority of edema is in the hand extending to the wrist, does not extend into the forearm or upper arm. No lymphatic streaking noted. He is able to fire flexion and extension of the fingers however this is limited. Do not suspect compartment syndrome. Cultures grew out Staphylococcus aureus. Patient saw infectious disease and they are recommending vancomycin and Ancef and will adjust pending results of cultures obtained yesterday in the OR. Continue to follow infectious disease notes and recommendations. Ultrasound of the right upper extremity was ordered by hospitalist today and this was negative for DVT. 4 sutures removed today for decompression. New dressing applied. Continue pain medication and DVT prophylaxis per primary service. Patient NPO after midnight and scheduled for OR tomorrow in case another washout is necessary. Admission and Anticipated Discharge Date Admission Date: July 03, 2024 Subjective Patient seen in bed today. After surgery and overnight he developed increasing swelling in his right hand. He had been elevating it and noticed increase in pain and swelling into his forearm. His dressing was taken down by nursing staff. He reports ongoing numbness and tingling in his fingers but no change since the infection started. His pain is about the same as it has been since infected but he thinks his hand is more swollen. Has baseline aching/throbbing pain and has intermittent electrical shooting type pains in his forearm near his elbow. His pain is being controlled with the Dilaudid. He is able to just make his fingers move however it is very painful. No fevers or chills. Physical Exam Constitutional: Appears to be uncomfortable in a moderate amount of pain. Conversational and not altered. Otherwise pleasant. Cardiovascular: Right radial pulse 2+ Musculoskeletal: Right upper extremity: Significant amount of soft tissue edema in the hand extending to the wrist. The forearm and upper arm are not edematous. Able to initiate flexion and extension with the fingers however this is very limited secondary to pain. Mild amount of serosanguineous drainage through the proximal incision. There is erythema along the dorsum of the hand and wrist. There is no lymphatic streaking. Able to move elbow and shoulder. Forearm and upper arm compartments are soft and nontender. Neurologic: Decreased sensation to light touch in the right index finger. Altered sensation to light touch in the remainder of the right fingers. Results & Data Vital Signs (Past 12 Hours) Vital Signs Temp Pulse Resp BP Pulse Ox O2 Del Method O2 Flow Rate 07/04/24 07:39 98.1 F 62 18 122/72 92 Nasal Cannula 2 07/04/24 04:15 97.7 F 07/04/24 02:59 100.0 F H 90 16 115/64 91 Nasal Cannula 2 Laboratory Results 07/02/24 Unknown Gram Stain - Final Hand Aerobic and Anaerobic Culture - Preliminary Staphylococcus aureus Staphylococcus aureus#2 07/03/24 13:29 Gram Stain - Preliminary Hand,Right Aerobic and Anaerobic Culture - Preliminary Staphylococcus aureus Staphylococcus aureus#2 07/03/24 13:29 Gram Stain - Preliminary Hand,Right Aerobic and Anaerobic Culture - Preliminary Staphylococcus aureus Staphylococcus aureus#2 07/03/24 13:29 Gram Stain - Preliminary Hand,Right Aerobic and Anaerobic Culture - Preliminary Staphylococcus aureus Staphylococcus aureus#2 07/03/24 11:56 Aerobic Blood Culture - Pending Blood Anaerobic Blood Culture - Pending 07/03/24 11:53 Aerobic Blood Culture - Pending Blood Anaerobic Blood Culture - Pending 07/04/24 04:03 WBC 8.71 RBC 3.67 L Hgb 11.3 L Hct 33.5 L MCV 91.3 MCH 30.8 MCHC 33.7 RDW Std Deviation 41.4 RDW Coeff of [place] 12.3 Plt Count 118 L MPV 10.3 Immature Gran % (Auto) 0.6 Neut % (Auto) 84.5 Lymph % (Auto) 4.0 [place] % (Auto) 10.2 Eos % (Auto) 0.1 Baso % (Auto) 0.6 Neut # (Auto) 7.36 H Lymph # (Auto) 0.35 L [place] # (Auto) 0.89 H Eos # (Auto) 0.01 Baso # (Auto) 0.05 Immature Gran # (Auto) 0.05 Sodium 132 L Potassium 4.0 Chloride 103 Carbon Dioxide 25 Anion Gap 4 BUN 14 Creatinine 1.02 Est Cr Clr Drug Dosing 70.5 eGFR 82.07 BUN/Creatinine Ratio 13.7 Glucose 124 H Calcium 7.8 L Diagnostic Findings Venous Doppler Study 07/04/24 08:54 US venous doppler UE RT CLINICAL HISTORY: pain, swelling PROCEDURE: Right upper extremity real-time compression venous ultrasound with Duplex and color Doppler imaging. Comparison: None available at the time of this dictation. FINDINGS/IMPRESSION: There is normal compressibility of the deep venous system from the forearm through the subclavian vein. Normal vascular flow is currently identified. No evidence of superficial thrombosis is identified. ACT 112: Negative or not required by law. Electronically signed by: Migel Lester M.D. 07/04/2024 11:22 AM (1) Post-operative infection Encounter type: initial encounter Postoperative infection type: unspecified type Qualified Code(s): T81.40XA - Infection following a procedure, unspecified, initial encounter
--- NOTE | 2024-07-04 11:23 | Ultrasound Report ---
US venous doppler UE RT CLINICAL HISTORY: pain, swelling PROCEDURE: Right upper extremity real-time compression venous ultrasound with Duplex and color Dopple r imaging. Comparison: None available at the time of this dictation. FINDINGS/IMPRESSION: There is normal compressibility of the deep venous system from the forearm through the subclavian vei n. Normal vascular flow is currently identified. No evidence of superficial thrombosis is identified. ACT 112: Negative or not required by law. Electronically signed by: Migel Lester M.D. 07/04/2024 11:22 AM
[2024-07-04] MEDS ORDERED: VANCOMYCIN CONSULT ACTIVE PRN (12:07)
[2024-07-04] MEDS: HEPARIN SOD 5,000 UNIT/0.5 ML VIAL SQ STA (12:29)
--- OUTSIDE RECORDS SUMMARY | 2024-07-04 12:49 | External Medical Summary | Continuity of Care Document ---
Author Name Unknown Organization [id number] Address [address] [place] [phone] Care Team Providers Care Wedding Coordinator Name Role Phone Caden Alexandre Primary Care Physician [phone] Encounter [facility] [id number] Date(s): 06/13/24 - 06/13/24 [facility] [address] [facility] [facility] Medicine [address] [place] [id number] Encounter Diagnosis Closed fracture of 5th metacarpal(Discharge Diagnosis) - 06/13/24 Discharge Disposition: Home or Self Care Attending Physician: MD Tillman Jesse Allergies, Adverse Reactions, Alerts No Known Allergies Immunizations Given and Recorded Vaccine Date Status Refusal Reason influenza virus vaccine, live 05/02/13 Recorded Medications oxyCODONE 5 mg oral tablet Start: 06/13/24 1:28:00 PM EST, 1 tab, PO, q4h, Disp# 18 tab, Refills: 0, Note to Pharmacy: initialtherapy, PRN: as needed for pain, Pharmacy: [id number] Start Date: 06/13/24 Status: Ordered Mental Status 06/13/24 Barriers to Learning one year None evide nt Mandatory Health Literacy Documentation Yes Health Literacy Communication Barriers N ever Primary Language Greek Problem List Condition Confirmation Course Effective Dates Status Health St atus Informant Actinic keratosis Confirmed Active Closed fracture of 5th metacarpal Confirmed Active Right hand fracture Confirmed Active Impetigo Confirmed Active Lyme Disease Confirmed Active Carter Confirmed 02/07/11 Active Diagnosis Diagnosis Type Effective Dates Health Status Clinical Service Informant Closed fracture of 5th metacarpal Discharge Diagnosis 06/13/24 Non-Specified Procedures Procedure Date Related Diagnosis Body Site Status Colonoscopy 1, 2 04/13/20 Complete d Vasectomy 1994 Completed Tonsillectomy 1967 Completed 1One 7 mm polyp in the cecum, removed with a hot snare. Resected and retrieved. One 4 mm polyp in the ascending colon, removed with a cold snare. Resected and retrieved. One 3 mm polyp in the ascending colon, removed with a cold biopsy forceps. REsected and retrieved. 2Pathology results: A) Cecal polyp, polypectomy: sessile serrated polyp. B) Ascending colon polyp, polypectomy: Sessilbe serrated polyp C) Ascending colon, polyp, polypectomy: Tubular adenoma. Repeat in 3 years. Social History Social History Type Response Smoking Status Never smoked cigaret gage Sex Male Sex Representation Male (finding) Patient Care team information Care Team Related Persons Name: JENNIFER JUAN
--- OUTSIDE RECORDS SUMMARY | 2024-07-04 12:49 | External Medical Summary | Continuity of Care Document ---
Author Name Unknown Organization [id number] Address [address] [place] [phone] Care Team Providers Care Size Tester Name Role Phone Caden Alexandre Primary Care Physician [phone] Encounter [facility] [place] [facility] [id number] Date(s): 06/13/24 - 06/13/24 [facility] [address] [place] [id number] [address] [place] [id number] Encounter Diagnosis Closed fracture of 5th metacarpal(Discharge Diagnosis) - 06/13/24 Discharge Disposition: Home or Self Care Attending Physician: MD Schaffer Dov A Referring Physician: MD Tillman Jesse Allergies, Adverse Reactions, Alerts No Known Allergies Assessment and Plan Extracted from: Title:R 5th MC fx Author:MD Schaffer Dov A Date:08/13/23 OUTPATIENT NOTE Name: NOA JUAN Patient Number:[id number] : 1960 Date of Service: 06/13/2024 CHIEF COMPLAINT: Right hand fracture. 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 X-rays were obtained and he was placed in ulnar gutter splint. He returns today for x-rays and I was asked to see him to discuss his surgical options. ROS: Noted in the HPI. PHYSICAL EXAM: Focusing on the patient's right upper extremity: BCR <2 seconds Sensation light touch is intact distally Motor to: median, radial, ulnar, AIN, and PIN are intact. ++ Tenderness to palpation fifth metacarpal base. + Swelling and bruising of the hand and digits. Limited range of motion of the digits secondary to pain and swelling. Slight rotational deformity of the small finger under the ring finger. RADIOGRAPHS: I reviewed the radiographs 3 views of the right hand performed today, and show a comminuted intra-articular fifth metacarpal base fracture that appears shortened. IMPRESSION: Right fifth metacarpal base fracture, comminuted, shortened, intra-articular, subsequent visit Acute Goal: Decrease pain PLAN: 1) After a lengthy discussion with the patient today regarding my above clinical findings, as well as reviewing their imaging with them, their treatment options of conservative management versus surgical intervention were discussed. 2) The risk and benefits of each were discussed. 3) The risks of surgery included but not limited to: Infection, bleeding, nerve damage, continued pain, progression of arthritis, stiffness, failure of the repair, failure of the hardware, and deep vein thrombosis. 4) They would like to proceed with surgery and informed consent was signed for closed versus open reduction internal fixation right fifth metacarpal fracture. 5) They will speak with my card folder and have a history and physical examination performed. The patient and his understood all my instructions and explanation; all their questions were satisfactorily addressed. This chart was completed utilizing [employer] voice recognition software. Grammatical errors, random word insertions, pronoun errors, and incomplete sentences are an occasional consequence of the system. Any questions or concerns about the content, text, or information contained within the body of this dictation should be addressed directly to the author for clarification. _ Immunizations Given and Recorded Vaccine Date Status Refusal Reason influenza virus vaccine, live 05/02/13 Recorded Medications oxyCODONE 5 mg oral tablet Start: 06/13/24 1:28:00 PM EST, 1 tab, PO, q4h, Disp# 18 tab, Refills: 0, Note to Pharmacy: initialtherapy, PRN: as needed for pain, Pharmacy: [id number] Start Date: 06/13/24 Status: Ordered Problem List Condition Confirmation Course Effective Dates Status Health at Informant Actinic keratosis Confirmed Active Closed fracture of 5th metacarpal Confirmed Active Right hand fracture Confirmed Active Impetigo Confirmed Active Lyme Disease Confirmed Active Carter Confirmed 02/07/11 Active Diagnosis Diagnosis Type Effective Dates Health Status Clinical Service Informant Closed fracture of 5th metacarpal Discharge Diagnosis 06/13/24 Procedures Procedure Date Related Diagnosis Body Site Status Colonoscopy 1, 2 04/13/20 Complete d Vasectomy 1994 Completed Tonsillectomy 1966 Completed 1One 7 mm polyp in the [...] polypectomy: Tubular adenoma. Repeat in 3 years. Vital Signs Most recent to oldest [Reference Range]: 1 Height 165 cm (06/13/24 10:33 AM) Patient Weight 72 kg (06/13/24 10:33 AM) Body Mass Index 26.45 kg/m2 (06/13/24 10:33 AM) Temperature [36.5-37.9 DegC] 36.4 DegC *LOW* (06/13/24 10:33 AM) Heart Rate 50 bpm (06/13/24 10:33 AM) Blood Pressure 128/70mmHg (06/13/24 10:33 AM) Cuff Pulse Pressure 58 mmHg (06/13/24 10:33 AM) Social History Social History Type Response Smoking Status Never smoked cigaret gage Sex Male Sex Representation Male (finding) EKG study * Contributor_system, MUSE01: VERIFY, PERFORM Event Display: EKG Authored Date: Please click on link to see image. 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 He injured his right hand a week ago punching a table.X-rays were obtained and he was placed in ulnar gutter splint. He returns today for x-rays and saw Dr. Schaffer who recommended surgical intervention. He is healthy with nohistory of heart attack, blood clots, stroke. Review of Systems DeniesRecent illnesses, colds/flu, pneumonia, COVID or COVID exposures; DeniesFevers, chills, malaise; DeniesChest pain, heart palpitations; DeniesShortness of breath, cough; DeniesHeadacheor blurry vision; DeniesAbdominal pain, nausea, vomiting, diarrhea, or urinary symptoms Physical Exam Vitals & Measurements T:36.4C HR:50(Monitored) BP:128/70 SpO2:97% HT:165cm WT:72.000kg(Dosing) WT:72kg BMI:26.45 General: Pt is well nourished, seated on the exam table AA&O, in NAD, calm and cooperative during exam HENT: Nontraumatic, no gross deformity, hearing and vision grossly in-tact, PERRL Heart: +S1, +S2, RRR, no murmurs appreciated Lungs: CTABL, no wheezing appreciated Focusing on the patient's right upper extremity: BCR <2 seconds Sensation light touch is intact distally Motor to: median, radial, ulnar, AIN, and PIN are intact. ++ Tenderness to palpation fifth metacarpal base. + Swelling and bruising of the hand and digits. Limited range of motion of the digits secondary to pain and swelling. Slight rotational deformity of the small finger under the ring finger. Patient was placed back in an ulnar gutter splint Diagnostic Results Dr Camachoiewed the radiographs 3 views of the right hand performed today, and show a comminutedintra-articular fifth metacarpal base fracture that appears shortened Assessment/Plan 1.Closed fracture of 5th metacarpal Preop The risks and benefits of surgery as well as the post operative course was explained and discussed with the patient. Written consent obtained. The patient's past medical history, surgeries, social history, medication list, allergies and PDMP were reviewed and confirmed with the patient. Patientdoes not needmedical clearance. EKGnoted sinus bradycardia with first-degree AV block. Patient says thathehas always had bradycardiaand deniesanycardiac symptoms. Preoperative orders were placed. We discussed postoperative pain medications includingoxycodone, tylenol and NSAIDs,as w ell as icing and elevating to control pain.The patient has been scheduled for post operative appointments. He will be seeing Brittany Murray 3 to 5 days after surgery to get transition into a thermoplastic brace. He will have his remaining postoperative appointments and therapy at the training room. The patient was given a preoperative booklet and we reviewed the most pertinent things leadingup to the surgery and the day of surgery; including any assisted devices pt may need, when/who to call for the surgery time, where to arrive the day of surgery, NPO after midnight, medications to [facility]. All of their questions and concerns were answered today. They were instructed to call our o ffice if they have any further questions or concerns. Problem List/Past Medical History Ongoing Actinic keratosis Closed fracture of 5th metacarpal Impetigo Lyme Disease Right hand fracture Carter Procedure/Surgical History Colonoscopy| Service Date: 04/13/2020Vasectomy| Service Date: 1994Tonsillectomy| Service Date: 1966 Allergies NKA Social History Smoking Status Never smoked cigarettes Family History Cancer: Unknown. Stroke: Unknown. Health Status Family Member(s) Immunizations Vaccine Date Status influenza virus vaccine, live 05/02/2013 Recorded Electronic Signature on File Electronically Reviewed/Signed by: Gabi Fletcher PA-C Author Signature Dt/Tm:06/13/2024 01:28 PM Physician Leather Polisher, Dept. of Orthopaedics and Sports Medicine [facility] - [address], [address] [place] [address] Electronically Reviewed/Signed by: Keith Schaffer MD Cosigner Signature Dt/Tm: 06/13/2024 05:10 PM [facility] Nail Making Machine Tender Department of Orthopaedics and Rehabilitation [facility] [address], [place] [address] MK Outpatient Note * MD Karime, Keith Abarca: PERFORM Event Display: .Outpt Note Authored Date: [id number] OUTPATIENT NOTE Name: NOA JUAN Patient Number:[id number] : 1960 Date of Service: 06/13/2024 CHIEF COMPLAINT: Right hand fracture. 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 X-rays were obtained and he was placed in ulnar gutter splint. He returns today for x-rays and I was asked to see him to discuss his surgical options. ROS: Noted in the HPI. PHYSICAL EXAM: Focusing on the patient's right upper extremity: BCR <2 seconds Sensation light touch is intact distally Motor to: median, radial, ulnar, AIN, and PIN are intact. ++ Tenderness to palpation fifth metacarpal base. + Swelling and bruising of the hand and digits. Limited range of motion of the digits secondary to pain and swelling. Slight rotational deformity of the small finger under the ring finger. RADIOGRAPHS: I reviewed the radiographs 3 views of the right hand performed today, and show a comminuted intra-articular fifth metacarpal base fracture that appears shortened. IMPRESSION: Right fifth metacarpal base fracture, comminuted, shortened, intra- articular, subsequent visit Acute Goal: Decrease pain PLAN: 1) After a lengthy discussion with the patient today regarding my above clinical findings, as well as reviewing their imaging with them, their treatment options of conservative management versus surgical intervention were discussed. 2) The risk and benefits of each were discussed. 3) The risks of surgery included but not limited to: Infection, bleeding, nerve damage, continued pain, progression of arthritis, stiffness, failure of the repair, failure of the hardware, and deep vein thrombosis. 4) They would like to proceed with surgery and informed consent was signed for closed versus open reduction internal fixation right fifth metacarpal fracture. 5) They will speak with my card folder and have a history and physical examination performed. The patient and his understood all my instructions and explanation; all their questions were satisfactorily addressed. This chart was completed utilizing [employer] voice recognition software. Grammatical errors,random word insertions, pronoun errors, and incomplete sentences are an occasional consequence of the system. Any questions or concerns about the content, text, or information contained within the body of this dictation should be addressed directly to the author for clarification. _ Electronic Signature on File Electronically Reviewed/Signed by: Keith Schaffer MD Author Signature Dt/Tm:06/13/2024 10:28 AM [facility] Nail Making Machine Tender Department of Orthopaedics and Rehabilitation [facility] [address], [place] [address] DAB Patient Care team information Care Team Related Persons Name: JENNIFER JUAN"
[2024-07-04] MEDS ORDERED: SIMETHICONE 80 MG CHEW PO PRN (13:27)
[2024-07-04] MEDS: SIMETHICONE 80 MG CHEW PO ONE (13:37)
[2024-07-04] MEDS: ACETAMINOPHEN 325 MG TAB PO PRN (14:10)
--- NOTE | 2024-07-04 14:22 | Orthopedic Progress Note ---
Date of Service July 04, 2024 Assessment & Plan (1) Closed right hand fracture: (2) Post-operative infection: Plan: Patient has significant swelling of the right upper extremity today. Encouraged elevation above his heart. A new bulky hand dressing was applied today along with the splint. 4 sutures were removed. New dressings were applied. Will reeval in the morning. Will discuss with Dr. Schaffer if we need to make him n.p.o. after midnight just in case more surgical intervention is planned for tomorrow. Patient understands and agrees to the plan. He tolerated the suture removal today. All questions were answered. Admission and Anticipated Discharge Date Admission Date: July 03, 2024 Supervising Physician Co-Signing Physician Notes I, Dr. Schaffer, saw and examined the patient today and agree with the above findings and plan of care, I developed. NPO after MN, has been placed on the add-on list just in case for tomorrow. Will remove Iodoform packing tomorrow am. Subjective I was asked to see patient today remove some of his sutures to help relieve pressure. He has had a lot of issues with swelling overnight. A new bulky dressing was applied to the right hand just a few hours ago. Denies any numbness or tingling. He states that it is very swollen. He has been trying to keep it elevated. Physical Exam Musculoskeletal: Exam of his right upper extremity: His right hand is edematous. The incision is intact. Skin edges are grayish in coloration. There is active serosanguineous drainage coming from the incision itself. Some of the sutures are very tight and causing pressure due to the edema in his hand and fingers. The distal pin is in place. The iodoform packing was left in place at the proximal pin site. I removed 4 sutures from his incision. [address] This helped relieve some of the tenseness of the closure. No wound dehiscence occurred. Prior to removing the sutures the area was cleansed with sterile saline wipe and an alcohol swab. Capillary fill is brisk in his fingers. He has tenderness throughout the hand wrist and fingers. A new bulky dressing was applied to the right hand and an Adaptic was placed over the incision. Results & Data Vital Signs (Past 12 Hours) Vital Signs Temp Pulse Resp BP Pulse Ox O2 Del Method O2 Flow Rate 07/04/24 14:06 38.4 C H 89 18 145/68 H 92 Room Air 07/04/24 11:22 37.2 C 90 22 143/97 H 94 Room Air 07/04/24 07:39 36.7 C 62 18 122/72 92 Nasal Cannula 2 07/04/24 04:15 36.5 C 07/04/24 02:59 37.8 C H 90 16 115/64 91 Nasal Cannula 2 Laboratory Results 07/04/24 Range/Units 04:03 WBC 8.71 (4.8-10.8) K/ul RBC 3.67 L (4.70-6.10) M/uL Hgb 11.3 L (14.0-18.0) g/dl Hct 33.5 L (42.0-52.0) % MCV 91.3 (80.0-100.0) fL MCH 30.8 (25.0-34.0) pg MCHC 33.7 (32.0-36.0) g/dL RDW Std Deviation 41.4 (36.4-46.3) fL RDW Coeff of [place] 12.3 (11.5-14.5) % Plt Count 118 L (130-400) K/uL MPV 10.3 (9.4-12.4) fL Immature Gran % (Auto) 0.6 % Neut % (Auto) 84.5 % Lymph % (Auto) 4.0 % [place] % (Auto) 10.2 % Eos % (Auto) 0.1 % Baso % (Auto) 0.6 % Neut # (Auto) 7.36 H (1.40-6.50) K/uL Lymph # (Auto) 0.35 L (1.20-3.40) K/uL [place] # (Auto) 0.89 H (0.11-0.59) K/uL Eos # (Auto) 0.01 (0.00-0.50) K/uL Baso # (Auto) 0.05 (0.00-0.20) K/uL Immature Gran # (Auto) 0.05 (0.01-0.20) K/uL ESR 40 H (0-20) mm/hr Sodium 132 L (136-145) mmol/L Potassium 4.0 (3.5-5.1) mmol/L Chloride 103 (98-107) mmol/L Carbon Dioxide 25 (21-32) mmol/L Anion Gap 4 (3-11) BUN 14 (6-23) mg/dl Creatinine 1.02 (0.6-1.4) mg/dl Est Cr Clr Drug Dosing 70.5 ml/min eGFR 82.07 BUN/Creatinine Ratio 13.7 (10-20) Glucose 124 H (70-99(Fasting)) mg/dl Calcium 7.8 L (8.6-10.3) mg/dl C-Reactive Protein 28.93 H (0-0.5) mg/dl Microbiology 07/03/24 11:56 Aerobic Blood Culture - Preliminary Blood No growth in Aerobic bottle after 24 hours. 07/03/24 11:53 Aerobic Blood Culture - Preliminary Blood No growth in Aerobic bottle after 24 hours. Anaerobic Blood Culture - Preliminary No growth in Anaerobic bottle after 24 hours. 07/02/24 Unknown Gram Stain - Final Hand Aerobic and Anaerobic Culture - Preliminary Staphylococcus aureus Staphylococcus aureus#2 07/03/24 13:29 Gram Stain - Preliminary Hand,Right Aerobic and Anaerobic Culture - Preliminary Staphylococcus aureus Staphylococcus aureus#2 07/03/24 13:29 Gram Stain - Preliminary Hand,Right Aerobic and Anaerobic Culture - Preliminary Staphylococcus aureus Staphylococcus aureus#2 07/03/24 13:29 Gram Stain - Preliminary Hand,Right Aerobic and Anaerobic Culture - Preliminary Staphylococcus aureus Staphylococcus aureus#2 Spec: [id number] Collected: 07/02/24-UNK Received: 07/02/24-[address]: Helene Albarado CRNP Source: Hand OV Order: Ordered: Aer/Arcelia Cult/Sm Procedure Result Verified Site Gram Stain Final 07/03/24-0739 Gram Stain Result Few Epithelial Cells No Organisms Seen Rare WBCs Seen Aero/Arcelia Cult Preliminary 07/04/24-1023 Organism 1 Staphylococcus aureus Quantity Few Sens Sensitivities to Follow Organism 2 Staphylococcus aureus#2 Quantity Moderate Sens Sensitivities to Follow S aureus RX M.I.C. --- --------- Clindamycin R <=0.25 Daptomycin S <=0.5 Erythromycin R >4 Linezolid S 2 Oxacillin S <=0.25 Tetracycline S <=4 Trimeth/Sulfa S <=0.5/9.5 Vancomycin S 1 S = SENSITIVE I = INTERMEDIATE R = RESISTANT (2) Post-operative infection Encounter type: initial encounter Postoperative infection type: unspecified type Qualified Code(s): T81.40XA - Infection following a procedure, unspecified, initial encounter
[2024-07-04 14:34] LABS: C Reactive Protein 28.93 mg/dl (0-0.5)
[2024-07-04] MEDS: VANCOMYCIN HCL 1,500 MG in SODIUM CHLORIDE 0.9% 500 ML IV SCH (15:33)
[2024-07-04] MEDS: FUROSEMIDE INJ 20 MG/2 ML VIAL IV ONE (17:28)
[2024-07-04] MEDS: HEPARIN SOD 5,000 UNIT/0.5 ML VIAL SQ SCH (20:55)
[2024-07-05 06:34] LABS: Basophils # (auto) 0.05 K/uL (0.00-0.20); Basophils % (auto) 0.5 %; Eosinophils # (auto) 0.08 K/uL (0.00-0.50); Eosinophils % (auto) 0.8 %; Hematocrit (blood only) 33.8 % (42.0-52.0); Hemoglobin 11.6 g/dl (14.0-18.0); Immature Granulocytes # (auto) 0.05 K/uL (0.01-0.20); Immature Granulocytes % (auto) 0.5 %; Lymphocytes # (auto) 0.89 K/uL (1.20-3.40); Lymphocytes % (auto) 8.6 %; Mean Corpuscular Hemoglobin 31.1 pg (25.0-34.0); Mean Corpuscular Hgb Conc 34.3 g/dL (32.0-36.0); Mean Corpuscular Volume 90.6 fL (80.0-100.0); Mean Platelet Volume 10.1 fL (9.4-12.4); Monocytes # (auto) 1.44 K/uL (0.11-0.59); Monocytes % (auto) 13.9 %; Neutrophils # (auto) 7.88 K/uL (1.40-6.50); Neutrophils % (auto) 75.7 %; Platelet Count 139 K/uL (130-400); RDW Coefficient of Variation 12.5 % (11.5-14.5); RDW Standard Deviation 41.2 fL (36.4-46.3); Red Blood Count 3.73 M/uL (4.70-6.10); White Blood Count 10.39 K/ul (4.8-10.8)
[2024-07-05 06:53] LABS: Calcium 8.1 mg/dl (8.6-10.3); Creatinine Clr Calc Pharmacy 71.9 ml/min; Potassium 3.5 mmol/L (3.5-5.1)
[2024-07-05 07:38] LABS: A calco-baum cmplx NotReported Not Detected (NotDetected); Bact fragilis Not Reported Not Detected (NotDetected); Blood Culture Id Panel See PCR Comment (NotDetected); C auris Not Reported Not Detected (NotDetected); Calbicans Not Reported Not Detected (NotDetected); Candida glabrata Not Reported Not Detected (NotDetected); Candida krusei Not Reported Not Detected (NotDetected); Cneoformans/gatti Not Reported Not Detected (NotDetected); Cparapsilosis Not Reported Not Detected (NotDetected); E cloacae compx Not Reported Not Detected (NotDetected); Efaecalis Not Reported Not Detected (NotDetected); Efaecium Not Reported Not Detected (NotDetected); Enterobacterales Not Reported Not Detected (NotDetected); Escherichia coli Not Reported Not Detected (NotDetected); H influenzae Not Reported Not Detected (NotDetected); K aerogenes Not Reported Not Detected (NotDetected); Koxytoca Not Reported Not Detected (NotDetected); Kpneumoniae grp Not Reported Not Detected (NotDetected); Lmonocyt Not Reported Not Detected (NotDetected); N meningitidis Not Reported Not Detected (NotDetected); P aeruginosa Not Reported Not Detected (NotDetected); Proteus spp Not Reported Not Detected (NotDetected); Salmonella spp Not Reported Not Detected (NotDetected); Staph lugdunensis Not Reported Not Detected (NotDetected); Staph spp. Not Reported DETECTED (NotDetected); Staphaureus Not Reported DETECTED (NotDetected); Staphepi Not Reported Not Detected (NotDetected); Stenmaltophilia Not Reported Not Detected (NotDetected); Strep agal(GrpB) Not Reported Not Detected (NotDetected); Strep pneum Not Reported Not Detected (NotDetected); Strep pyog (GrpA) Not Reported Not Detected (NotDetected); Strep spp Not Reported Not Detected (NotDetected); mecAC+MREJ Resistant Gene MRSA Not Detected (NotDetected)
[2024-07-05 07:51] LABS: Staphylococcus spp. DETECTED (NotDetected)
--- NOTE | 2024-07-05 08:30 | Pharmacy Report ---
Pharmacy [facility] Note - Date of Service July 05, 2024 - Assessment and Plan Assessment 07/05 * Vanco level drawn this morning was subtherapeutic at 6.7mcg/mL (out of the calculated target AUC range) * Vancomycin has been changed to 1250mg iv q 12 hours starting this morning. * Hand cultures to date appear to grow MSSA. There is also 1 of 2 positive blood cultures (preliminary results show gram + cocci in clusters). Per ID, patient is to continue to cefazolin and vancomycin for possibility of MRSA present. * pt has been febrile (tmax of 38.4 C on 07/04) and currently no leukocytosis. 07/03 * Mr Miles is a 63 year old M receiving vancomycin for treatment of post-op infection. Pt is s/p R fifth metacarpal fracture and surgery 06/14/24. * Pertinent microbiologic data includes: Staph present on hand Cx * CT of hand: Findings suggestive of moderate to extensive cellulitis with 2.9 cm probable abscess. * Pt scheduled for I&D in the OR today. Plan Vancomycin * Maintenance dose changed to: 1250mg iv q 12 hours * Regimen is predicted to achieve target AUC/RENZO of 400-600 mg/L.hr * Will order a vanc level closer to steady-state if pt remains hospitalized Pharmacy will continue to follow and will adjust dose/frequency as necessary. Thank you. Pharmacy has transitioned to AUC monitoring for vancomycin. AUC/RENZO is the preferred PK/PD target and is associated with decreased risk of nephrotoxicity compared to traditional trough targets.
[2024-07-05] MEDS ORDERED: VANCOMYCIN HCL 1,500 MG in SODIUM CHLORIDE 0.9% 500 ML IV SCH (09:00)
[2024-07-05] MEDS ORDERED: VANCOMYCIN HCL 1,250 MG in SODIUM CHLORIDE 0.9% 250 ML IV SCH (09:00)
--- NOTE | 2024-07-05 11:06 | Orthopedic Progress Note ---
Date of Service July 05, 2024 Assessment & Plan (1) Post-operative infection: Plan: Postop day #2 status post right hand incision and drainage, placement of antibiotic beads, removal orthopedic hardware. Erythema is now extending just proximal to the wrist joint. No lymphatic streaking noted. He is able to fire flexion and extension of the fingers however this is limited. Do not suspect compartment syndrome. Cultures grew out Staphylococcus aureus. Patient saw infectious disease. Currently on IV Ancef 2g q8H. Continue to follow infectious disease notes and recommendations. I did apply a new light dressing today and advised him that Dr. Schaffer will be up to see him later this afternoon with probable surgical intervention necessary. Continue pain medication and DVT prophylaxis per primary service. Patient NPO and scheduled for OR tomorrow in case another washout is necessary. Admission and Anticipated Discharge Date Admission Date: July 03, 2024 Supervising Physician Co-Signing Physician Notes I, Dr. Schaffer, saw and examined the patient today and agree with the above findings and plan of care, I developed. NPO after MN, has been placed on the add-on list for today. Will remove I&D, CTR, and remove the remaining pin. Subjective This 63-year-old male seen today for follow-up evaluation of his right hand after irrigation debridement with antibiotic bead placement and hardware removal with Dr. Schaffer for a right fourth and fifth metacarpal fracture. Patient states that his hand is very very painful and he has noticed some redness swelling into his forearm. He denies any symptoms of fever chills sweats but does have some numbness and tingling in his fourth and fifth digits. He is hoping that he will be having another surgery today to wash out the infected wound and having the remaining hardware removed. He is very concerned about the progression of this infection. Review of Systems Review of Systems: All systems reviewed & are unremarkable except as noted in Subjective Physical Exam Physical Exam: Right hand: Dressing and splint are removed. I removed the packing as well. Patient has significant edema, erythema and warmth tracking from the base of all fingers dorsally and ventrally just proximal to the wrist joint. He has very limited range of motion of his wrist. He experiences a tingling sensation with palpation over the pads of the fourth and fifth digit. Light palpation over the dorsal surface causes purulent fluid to be expressed from the surgical incision site but not in the packing area. Results & Data Vital Signs (Past 12 Hours) Vital Signs Temp Pulse Resp BP Pulse Ox O2 Del Method 07/05/24 07:17 36.8 C 83 17 129/73 97 Room Air Diagnostic Findings Laboratory Results WBC 10.39 K/ul (4.8-10.8) 07/05/24 06:09 RBC 3.73 M/uL (4.70-6.10) L 07/05/24 06:09 Hgb 11.6 g/dl (14.0-18.0) L 07/05/24 06:09 Hct 33.8 % (42.0-52.0) L 07/05/24 06:09 MCV 90.6 fL (80.0-100.0) 07/05/24 06:09 MCH 31.1 pg (25.0-34.0) 07/05/24 06:09 MCHC 34.3 g/dL (32.0-36.0) 07/05/24 06:09 RDW Std Deviation 41.2 fL (36.4-46.3) 07/05/24 06:09 RDW Coeff of [place] 12.5 % (11.5-14.5) 07/05/24 06:09 Plt Count 139 K/uL (130-400) 07/05/24 06:09 MPV 10.1 fL (9.4-12.4) 07/05/24 06:09 Immature Gran % (Auto) 0.5 % 07/05/24 06:09 Neut % (Auto) 75.7 % 07/05/24 06:09 Lymph % (Auto) 8.6 % 07/05/24 06:09 [place] % (Auto) 13.9 % 07/05/24 06:09 Eos % (Auto) 0.8 % 07/05/24 06:09 Baso % (Auto) 0.5 % 07/05/24 06:09 Neut # (Auto) 7.88 K/uL (1.40-6.50) H 07/05/24 06:09 Lymph # (Auto) 0.89 K/uL (1.20-3.40) L 07/05/24 06:09 [place] # (Auto) 1.44 K/uL (0.11-0.59) H 07/05/24 06:09 Eos # (Auto) 0.08 K/uL (0.00-0.50) 07/05/24 06:09 Baso # (Auto) 0.05 K/uL (0.00-0.20) 07/05/24 06:09 Immature Gran # (Auto) 0.05 K/uL (0.01-0.20) 07/05/24 06:09 Dohle Bodies 1+ 07/03/24 06:52 ESR 40 mm/hr (0-20) H 07/04/24 04:03 Sodium 134 mmol/L (136-145) L 07/05/24 06:09 Potassium 3.5 mmol/L (3.5-5.1) 07/05/24 06:09 Chloride 99 mmol/L (98-107) 07/05/24 06:09 Carbon Dioxide 28 mmol/L (21-32) 07/05/24 06:09 Anion Gap 7 (3-11) 07/05/24 06:09 BUN 13 mg/dl (6-23) 07/05/24 06:09 Creatinine 1.00 mg/dl (0.6-1.4) 07/05/24 06:09 Est Cr Clr Drug Dosing 71.9 ml/min 07/05/24 06:09 eGFR 84.05 07/05/24 06:09 BUN/Creatinine Ratio 13.0 (10-20) 07/05/24 06:09 Glucose 100 mg/dl (70-99(Fasting)) H 07/05/24 06:09 Calcium 8.1 mg/dl (8.6-10.3) L 07/05/24 06:09 Phosphorus 1.6 mg/dl (2.5-4.9) L 07/03/24 06:52 Total Bilirubin 0.8 mg/dl (0.2-1.0) 07/02/24 21:24 AST 30 U/L (13-39) 07/02/24 21:24 ALT 25 U/L (7-52) 07/02/24 21:24 Alkaline Phosphatase 68 U/L (34-104) 07/02/24 21:24 C-Reactive Protein 28.93 mg/dl (0-0.5) H 07/04/24 04:03 Total Protein 6.5 gm/dl (6.0-8.3) 07/02/24 21:24 Albumin 3.0 gm/dl (3.4-5.0) L 07/03/24 06:52 Globulin 2.7 gm/dl (2.5-4.0) 07/02/24 21:24 Albumin/Globulin Ratio 1.4 (0.9-2) 07/02/24 21:24 Random Vancomycin 6.4 mcg/ml (10-20) L 07/05/24 06:09 Staphylococcus sp PCR DETECTED (NotDetected) A 07/03/24 11:53 Staph aureus (PCR) DETECTED (NotDetected) A 07/03/24 11:53 mecA/C & MREJ Resist Gene MRSA Not Detected (NotDetected) 07/03/24 11:53 Bld Cult ID Panel PCR See PCR Comment (NotDetected) 07/03/24 11:[address] 07/03/24 06:33 CT hand RT wo con HISTORY: 63 years-old Male Eval for abscess/osteomylitis acute pain of the right hand. Clinical concern for soft tissue infection with possible abscess. COMPARISON: Radiographs 07/02/2024, 06/03/2024. TECHNIQUE: Multiple axial CT images of the right hand were obtained without IV contrast. Additional 3-D rendered images were generated from a separate workstation. A dose lowering technique was used consistent with the principals of ALARA. FINDINGS: Subacute comminuted intra-articular fracture involving the base of the fifth metacarpal is redemonstrated status post placement of two K wires which traverse the base of the fifth metacarpal. One of the K wires is oriented along the long axis of the metacarpal and distal tip extends into the hamate and capitate hamate articulation. The second transversely oriented K wire traverses the base of the fifth metacarpal and also extends into the base of the fourth metacarpal and partially into the base of the third metacarpal. Alignment is unchanged from yesterday's radiographs. No additional acute fracture or dislocation. 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 There is moderate diffuse subcutaneous and deep tissue edema. There is an ovoid intramuscular fluid collection of the volar hand which is noted along the volar base to mid shaft fifth metacarpal extending in between the fourth and fifth metacarpals which measures 1.0 x 1.3 x 2.9 cm with peripheral enhancement. IMPRESSION: 1. Fixated subacute comminuted intra-articular fifth metacarpal fracture. 2. Findings suggestive of moderate to extensive cellulitis with 2.9 cm probable abscess. ACT 112: Negative or not required by law. The above report was generated using voice recognition software. It may contain grammatical, syntax or spelling errors. Electronically signed by: Jarred Alvarez M.D. 07/03/2024 10:04 AM Hand X-Ray 07/03/24 14:36 XR hand RT min 3V routine HISTORY: 63 years-old Male post op right hand I D; fracture incision and drainage of the right hand COMPARISON: CT of same day TECHNIQUE: 4 views of the right hand FINDINGS: Status post removal of the transversely oriented K wire with persistent kristina gitudinally oriented K wire in place. Unchanged positioning of the comminuted fifth metacarpal base fracture. Persistent soft tissue swelling. Status post placement of antibiotic seeds within the medial hand. Overlying cast limits the study. IMPRESSION: Postoperative findings as above. ACT 112: Negative or not required by law. The above report was generated using voice recognition software. It may contain grammatical, syntax or spelling errors. Electronically signed by: Jarred Alvarez M.D. 07/03/2024 3:07 PM Venous Doppler Study 07/04/24 08:54 US venous doppler UE RT CLINICAL HISTORY: pain, swelling PROCEDURE: Right upper extremity real-time compression venous ultrasound with Duplex and color Doppler imaging. Comparison: None available at the time of this dictation. FINDINGS/IMPRESSION: There is normal compressibility of the deep venous system from the forearm through the subclavian vein. Normal vascular flow is currently identified. No evidence of superficial thrombosis is identified. ACT 112: Negative or not required by law. Electronically signed by: Migel Lester M.D. 07/04/2024 11:22 AM (1) Post-operative infection Encounter type: initial encounter Postoperative infection type: unspecified type Qualified Code(s): T81.40XA - Infection following a procedure, unspecified, initial encounter
--- NOTE | 2024-07-05 11:32 | Anesthesiology Consultation ---
Date of Service July 05, 2024 Assessment & Plan (1) Encounter for pre-operative examination: Chart Review Chart Review: Acceptable Risk for Surgery History Surgery Operation Date: 07/03/24 08:50 Proposed Procedures p Right Hand Incision and Drainage - Keith Rima Schaffer MD Operation Date: 07/05/24 07:00 Proposed Procedures p Right Hand Irrigation and Debridement - Keith Rima Schaffer MD Height/Weight Height: 5 ft 5 in Weight: 78.1 kg Allergies Allergy/AdvReac Type Severity Reaction Status Date / Time No Known Allergies Allergy Verified 06/14/24 11:07 Medications Home Medications Medication Instructions Recorded Confirmed Last Taken celecoxib 200 mg capsule 200 mg PO BID PRN DIRECTED 07/02/24 07/02/24 Unknown oxycodone 5 mg tablet 5 mg PO UD PRN Pain 07/02/24 07/02/24 Unknown Active Medications Generic Name Dose Route Start Last Admin Trade Name Freq PRN Reason Stop Dose Admin Acetaminophen 650 mg 07/04/24 08:52 07/04/24 14:10 Acetaminophen 325 Mg Tab PO 08/03/24 08:51 650 mg Q6H PRN Administration Fever or headache Docusate Sodium 100 mg 07/03/24 21:00 07/05/24 09:01 Docusate Sodium 100 Mg Cap PO 08/02/24 20:59 100 mg BID TOMY Administration Heparin Sodium (Porcine) 5,000 units 07/04/24 21:00 07/05/24 09:02 Heparin Sod 5,000 Unit/0.5 Ml Vial SQ 08/03/24 20:59 5,000 units Q12 TOMY Administration Hydromorphone HCl 1 mg 07/03/24 18:13 07/05/24 04:42 Hydromorphone Inj 1 Mg/Ml Syringe IV 07/17/24 18:12 1 mg Q3H PRN Administration Pain Cefazolin Sodium 2,000 mg in 15 mls @ 3.75 mls/min 07/04/24 09:00 07/05/24 05:03 Ancef 2000mg IV 08/15/24 08:59 3.75 mls/min Q8H TOMY Administration Oxycodone HCl 5 - 10 mg 07/03/24 15:58 07/05/24 08:11 Oxycodone Hcl Ir 5 Mg Tab (Immediate Release) PO 07/17/24 15:57 10 mg Q4H PRN Administration Pain or Pre PT NPO Date Last Intake of Fluids: 07/02/24 Time Last Intake of Fluids: 20:00 Date Last Intake of Solids: 07/02/24 Time Last Intake of Solids: 16:00 Past Medical History Medical History Post-operative infection BPH (benign prostatic hyperplasia) GERD (gastroesophageal reflux disease) History of colon polyps Past Family History Family History Uncle Family history of diabetes mellitus Grandmother (Paternal) Diabetes Family history of diabetes mellitus Father Hypertension Stroke Mother Lung cancer Grandfather (Maternal) Myocardial infarction Grandfather (Paternal) Myocardial infarction Other No family history of adverse response to anesthesia Denies family history of Ovarian cancer Prostate cancer Breast cancer Colorectal cancer Past Surgical History Surgical History Hx of vasectomy History of tooth extraction Hx of LASIK History of cataract surgery right/left History of hernia repair inguinal History of tonsillectomy History of colonoscopy Social History Smoking Status: Never smoker Do You Dip or Chew Tobacco: No Hx Alcohol Use: Yes Alcohol type: wine alcohol intake frequency: holidays/special occasions only Hx Substance Use: No substance use type: does not use Physical Exam Vital Signs Last Vital Signs Temp 36.8 C 07/05/24 11:16 Pulse 74 07/05/24 11:16 Resp 16 07/05/24 11:16 BP 145/70 H 07/05/24 11:16 Pulse Ox 90 07/05/24 11:16 O2 Del Method Room Air 07/05/24 11:16 O2 Flow Rate 2 07/04/24 07:39 Testing Laboratory Results 07/05/24 06:09 07/05/24 06:09 07/02/24 Unknown Gram Stain - Final Hand Aerobic and Anaerobic Culture - Preliminary Staphylococcus aureus Staphylococcus aureus#2 07/03/24 13:29 Gram Stain - Preliminary Hand,Right Aerobic and Anaerobic Culture - Preliminary Staphylococcus aureus Staphylococcus aureus#2 07/03/24 11:53 Aerobic Blood Culture - Preliminary Blood Gram positive cocci clusters Anaerobic Blood Culture - Preliminary No growth in Anaerobic bottle after 24 hours. 07/03/24 11:56 Aerobic Blood Culture - Preliminary Blood No growth in Aerobic bottle after 24 hours. Anaerobic Blood Culture - Final 07/03/24 13:29 Gram Stain - Preliminary Hand,Right Aerobic and Anaerobic Culture - Preliminary Staphylococcus aureus Staphylococcus aureus#2 07/03/24 13:29 Gram Stain - Preliminary Hand,Right Aerobic and Anaerobic Culture - Preliminary Staphylococcus aureus Staphylococcus aureus#2 Electrocardiogram Date: 06/13/24 Findings: + SB @ (48 1st degreee AV block)
--- NOTE | 2024-07-05 12:03 | Hospitalist Progress Note ---
Date of Service July 05, 2024 Assessment & Plan (1) Post-operative infection: Plan: Right hand after pinning of right fifth metacarpal fracture last month. Staph isolated on swab culture. Sensitivities show this to be MSSA. 1 of 4 blood cultures from July 03 positive for gram-positive cocci in clusters. Hopefully this is simply a contaminant. Final identification is pending. Infectious disease consultation appreciated. He remains on Ancef 2 g IV every 8 hours. Vancomycin has been discontinued. PICC line has been ordered for placement left arm today, July 05. Orthopedic consultation and recommendations appreciated. Incision and drainage procedure completed on July 03. Postoperative day #2. CT scan of the right hand on admission revealed evidence of infection and abscess. Right upper extremity venous Doppler negative for DVT. (2) Closed right hand fracture: Plan: Right fifth metacarpal fracture was repaired with pins last month. Plan Eventual discharge to home on continued IV antibiotics when cleared by orthopedics. Admission and Anticipated Discharge Date Admission Date: July 03, 2024 Subjective Alert and oriented. and daughter are at the bedside. He has some paresthesia of the right hand but perfusion appears to be intact, fingers are warm and not discolored. Good capillary refill. No evidence of compartment syndrome. PICC line placement left arm ordered for today, July 06. 1 of 4 blood cultures from July 03 is positive for gram-positive cocci in clusters. Hopefully this is simply a contaminant. Final identification pending. MSSA was obtained from the wound and he remains on intravenous Ancef therapy. Appreciate infectious disease consultation and orthopedic consultation recommendations. Sodium has improved to 134. Review of Systems 2 Review of Systems: Constitutionalno fever. No shaking chills since antibiotics started upon arrival ENTno blurred vision, no double vision, no epistaxis, no sore throat Respiratoryno cough, no wheezing, no shortness of breath Cardiacno palpitations, no chest pain, no syncope Jeff nausea, vomiting, diarrhea, melena, hematochezia GUno urinary retention, no urinary incontinence, no dysuria, no hematuria Musculoskeletaltender swollen right hand and right forearm with tenderness. Right hand fingers are warm with good capillary refill Skinno bruising, no rashes, no pruritus Neurono isolated weakness. He does notice some paresthesia involving the right hand Psychno depression, no anxiety Physical Exam 2 Physical Exam: General-alert and oriented x3, no fever HEENT-head atraumatic and normocephalic, pupils equal and reactive to light, extraocular muscles intact Neck-no lymphadenopathy or thyromegaly, trachea midline Chest-clear to auscultation. No rales, wheezing or rhonchi Cardiac-regular rate and rhythm, normal S1 and S2 Abdomen-normal bowel sounds, no hepatosplenomegaly Extremities-right hand is heavily bandaged. Fingers are not discolored and warm with good capillary refill. Neuro-cranial nerves II through XII intact, motor and sensory function within normal limits, strength symmetrical, no focal deficits Psych-normal affect, normal mood Results & Data Results & Data Vital Signs (Past 12 Hours) Vital Signs Temp Pulse Resp BP Pulse Ox O2 Del Method 07/05/24 11:16 36.8 C 74 16 145/70 H 90 Room Air 07/05/24 07:17 36.8 C 83 17 129/73 97 Room Air Laboratory Results 07/05/24 06:09 07/05/24 06:09 PG Care Time/CCT Total # of Minutes Spent Total Time Spent with Patient: Total time spent is greater than 50% in coordination of care (as documented) at patient's floor/unit and/or counseling patient: Coding Level of Care Code 43416 SUB INP/OBS CARE 2/35MIN Diagnoses Post-operative infection T81.40XA Encounter type: initial encounter Postoperative infection type: unspecified type Closed right hand fracture S62.91XA (1) Post-operative infection Encounter type: initial encounter Postoperative infection type: unspecified type Qualified Code(s): T81.40XA - Infection following a procedure, unspecified, initial encounter
[2024-07-05] MEDS ORDERED: LIDOCAINE 2% 2 ML VIAL/AMP(20MG/ML) INFIL ONE (12:37)
[2024-07-05] MEDS ORDERED: ONDANSETRON INJ 2 MG/ML 2 ML VIAL ONE ×2 (12:37→16:23)
[2024-07-05] MEDS ORDERED: DEXAMETHASONE SOD INJ 4 MG/ML VIAL ONE ×2 (12:37→16:23)
[2024-07-05] MEDS ORDERED: NEOSTIGMINE METHYLSULFATE 1 MG/ML 10ML VIAL ONE (12:37)
[2024-07-05] MEDS ORDERED: GLYCOPYRROLATE 0.2 MG/ML VIAL ONE (12:37)
[2024-07-05] MEDS ORDERED: ROCURONIUM BROMIDE 10 MG/ML 5 ML VIAL IV ONE ×3 (12:37→17:55)
[2024-07-05] MEDS ORDERED: PROPOFOL IV EMULSION 10 MG/ML 20 ML VIAL IV ONE (12:37)
[2024-07-05] MEDS ORDERED: MIDAZOLAM HCL 1 MG/ML 2ML VIAL ONE (12:38)
[2024-07-05] MEDS ORDERED: fentaNYL citrate PF 100 MCG/2 ML VIAL ONE ×3 (12:38→18:29)
--- NOTE | 2024-07-05 13:45 | Infectious Disease Progress Nt ---
Date of Service July 05, 2024 Assessment & Plan (1) MSSA (methicillin susceptible Staphylococcus aureus) infection: (2) Post-operative infection: (3) Closed right hand fracture: Plan 63yo M, right hand dominant, with h/o BPH, GERD, right 5th metacarpal fracture in May after punching a table s/p closed reduction percutaneous pinning on 06/14 who presented on 07/02 with worsening right hand pain, swelling, and redness x 5 days. 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 Here he was febrile to 38.3, BP stable. Exam noted with significant edema with erythema of the entirety of right hand including digits an surfaces, sanguinous drainage from insertion of proximal pin, redness extending to middle of right forearm. Initial labs with WBC 14.7, Cr 1.07, LFT wnl. Swab cx with MSSA. CT hand with fixated subacute comminuted intra-articular fifth metacarpal fracture, findings suggestive of moderate to extensive cellulitis with 2.9cm probable abscess (ovoid intramuscular fluid collection of the volar hand which is noted along the volar base to mid-shaft fifth metacarpal, extending between fourth and fifth metacarpal). S/p OR 07/03 and underwent right hand I+D, placement of antibiotic beads, and removal of hardware x 1 (per op note, proximal K wire was removed, soft tissue tunnel debrided). Postop XR with one remaining longitudinal K wire. He has received vancomycin and CTX. ID consulted 07/04. OR cx with 2 types of MSSA. BCx now with 1 of 4 bottles with GPC in clusters. Martha stopped vancomycin today since the 2 types of S aureus are both sensitive. He also has BCx with GPC in 1 of 4 bottles, which could be either MSSA from his infection or contaminant. Will wait for results prior to ordering repeat cultures. Ortho monitoring, possible washout tomorrow if needed. # BCX with GPC in 1 of 4 bottles # Right hand postop infection s/p debridement and 1 pin removal cx with MSSA # Right hand/forearm cellulitis # H/o R 5th metacarpal fracture s/p CRPP - f/u BCX from 07/03 if S aureus, then please repeat blood cultures, if coag negative staph, then likely contaminant and no need to repeat BCx - Martha stopped vancomycin - continue cefazolin 2g IV q8h - await any further surgical plans ID will continue to follow. Please note that there will be no ID notes over the weekend. If questions or concerns arise, please contact the Infectious Disease Call Center and ask to speak with the covering ID physician. Debra Terry MD [facility], Division of Infectious Diseases Admission and Anticipated Discharge Date Admission Date: July 03, 2024 Subjective Subsequent visit was provided via telemedicine using two-way real-time interactive telecommunication between the patient and the telemedicine provider. For the duration of the visit, the provider was performing the assessment from a different facility than the patient. This includesuse of bluetooth stethoscope forauscultationperformed by the telepresenter that the telemedicine provider can hear if described in the physical exam. [employer] contact information: Please call [facility] Call Center . (Phone Number For Physician Use Only) After establishing a telemedicine visit, patient was: Patient was verified with two unique identifiers, Patient/authorized rep acknowledged consent and understanding and Gave permission to continue telehealth session Time Spent with Patient: Subsequent => 35 min Patient reports ongoing swelling in his arm, numbness in his fingers. Physical Exam Physical Exam: General: Awake, alert, no acute distress HEENT: NC/AT, EOMI, mmm Neck: supple Lungs: respirations non-labored Heart: nl peripheral perfusion Abdomen: soft, NT/ND Ext: right arm dressing in place Neuro: moving all extremities Results & Data Vital Signs (Past 12 Hours) Vital Signs Temp Pulse Resp BP Pulse Ox O2 Del Method 07/05/24 11:59 37.6 C H 69 18 140/80 93 Room Air 07/05/24 11:16 36.8 C 74 16 145/70 H 90 Room Air 07/05/24 07:17 36.8 C 83 17 129/73 97 Room Air Laboratory Results Labs reviewed. (2) Post-operative infection Encounter type: initial encounter Postoperative infection type: unspecified type Qualified Code(s): T81.40XA - Infection following a procedure, unspecified, initial encounter
[2024-07-05] MEDS ORDERED: SUGAMMADEX SODIUM 200 MG/2 ML VIAL IV ONE (18:57)
[2024-07-05] MEDS: BUPIVACAINE 0.5 % 5 MG/1 ML MPF 30ML VIAL ONE (19:39)
--- NOTE | 2024-07-05 19:40 | Post Operative Brief Note ---
Immediate Post Op Note Date of Surgery July 05, 2024 Pre & Post Diagnosis Operation Date: 07/05/24 07:00 Pre-Op Diagnosis: Right Hand Post Operative Infection with Retained Orthopedic Hardware Post-Op Diagnosis: Right Hand Post Operative Infection I identified the patient and participated in the time-out.: Yes Procedure Operation Date: 07/05/24 07:00 Actual Procedures p Right Hand Irrigation and Debridement, Right Carpal Tunnel Release (open), Orthopedic Hardware Removal, Wound Vacuum Application (Right) - Keith Schaffer MD Surgeon Keith Schaffer MD Diabetic Educator Nuno Melchor DO Estimated Blood Loss 50 Findings Consistent with Post-Op Diagnosis Fluids 900 cc Specimens Right hand Gram Stain & Cx x 2 Drains Other (Wound Vac) Anesthesia Type General Complications none
[2024-07-05] MEDS: LIDOCAINE 1%/EPINEPHRINE 1:100,000 50 ML VIAL ONE (19:41)
--- NOTE | 2024-07-05 19:41 | Operative Report ---
Post Operative Report Pre & Post Diagnosis Operation Date: 07/05/24 07:00 Pre-Op Diagnosis: Right Hand Post Operative Infection with Retained Orthopedic Hardware Post-Op Diagnosis: Right Hand Post Operative Infection I identified the patient and participated in the time-out.: Yes Procedure Operation Date: 07/05/24 07:00 Actual Procedures p Right Hand Irrigation and Debridement, Right Carpal Tunnel Release, Orthopedic Hardware Removal, Wound Vacuum Application(Right) - eKith Schaffer MD Surgeon Keith Schaffer MD Verifying Machine Operator Nuno Melchor DO & Yvonne Fletcher PA-C Estimated Blood Loss 50 Findings See Below Purulent drainage from dorsal wound. Necrotic wound edges from superficial incision and over proximal pin site. Distal pin still in place. Significant swelling of the fingers, hand dorsally & volarly extending into wrist. Dorsal hand bruising. Erythema dorsal and volar wrist. Dorsal wound with necrotic soft tissue and noted antibiotic beads. Dorsal wound 9 cm & 5 cm carried down through fascia exposing the metacarpals. Volarly, significant swelling, tenosynitis of the flexor tendons. Thickened Transverse Carpal Ligament. Compressed Median and Ulnar nerves with adhesions. Purulent drainage noted within the Carpal Tunnel. Necrotic soft tissue along the floor of the Carpal Tunnel. Wound size 15 cm, carried down to carpal tunnel Hook Hamate. The muscle bellies were contractile, red and beefy. Fluids 900 cc Specimens Right hand Gram Stain & Cx x 2 Drains Wound Vac Anesthesia Type General Complications none Indications The patient has an infected right hand with draining wound with increased swelling and numbness of his fingers. The patient understands the risks of surgery, which include but are not limited to: bleeding, infection, re- operation, damage to nerves and arteries, continued pain and DVT. The patient understands all of these instructions and explanations, all of their questions have been satisfactorily addressed. The patient has elected to proceed with surgery and the informed consent was signed. Description of Procedure The patient was taken to the Operating Room and placed in the supine position on the operating table. After general anesthetic was administered a multidisciplinary time-out was performed identifying my initials on the right limb as the correct and operative limb. Antibiotics were held until cultures were obtained and then 2 grams of intravenous Ancef were given. The previous incision and remaining K-wire was prepped with Betadine. The sutures were removed. The K-wire was then removed with traction. The entire right arm was further prepped and draped in the usual Orthopaedic sterile fashion. The patient's previous incision was marked to be extended distally, a second dorsal incision between 2nd and 3rd metacarpal was marked, and finally a volar incision for open carpal tunnel release zig-zagging across the wrist. The skin edges were injected with a 50:50 mixture of 1% lidocaine and 0.5 % Marcaine with epi for a total of 10cc. The 15 cm volar incision was carried down to the palmaris longus and perez fascia. The palmar fascia was incised with a moapa blade. The thickened Transverse Carpal Ligament was carefully incised. The Median nerve was carefully freed of any adhesions. The Ulnar nerve was also freed of any adhesions up to the Hook of Hamate. The tenosynovitis and adhesions along the forearm flexor tendons were removed. There was some noted purulent drainage deep within the Carpal Tunnel, which was cultured.There was devitalized, necrotic soft tissue that was removed with a combination of sharp dissection with the curette and rongeur. The FPL Tendon was followed up into the thenar portion of the palm, milked, the thumb was flexed and extended without any purulent drainage. The thenar and hypothenar, as well as the wrist were milked and no further purulence was noted. The wound was copiously irrigated. Our attention was drawn to the dorsal hand. Much of the antibiotic beads had been washed out. The previous ulnar incision was extended proximally 2 cm, making it 9 cm in length total. There was devitalized, necrotic soft tissue that was removed with a combination of sharp dissection with the scalpel, curette, and rongeur. The antibiotic beads were removed. No obvious pocket of purulence was noted, despite milking the area. The wounds all the way down to the metacarpal were copiously irrigated. The 5 cm incision over the 2nd and 3rd metacarpal was carried down to the extensor mechanism. The fascia between the 2nd & 3rd was incised, exposing the metacarpals, there was no noted purulence. The muscle herniated through the fascia. The wounds were copiously irrigated with 5L normal saline.Following irrigation and debridement there was healthy viable red beefy tissue that was bleeding. The distal 1/2, volar skin was closed with0 Prolene and 3-0 Nylon loosely to cover the exposed median and Ulnar nerves. The wound was covered with white wound vac foam with black foam over top, bridging the 3 wounds in the standard fashion. The sponge and needle counts were correct. POST-OP: Patient will be re-admitted and continued on IV Ancef per infectious disease. Wound care consult to change Wound Vac Monday. Continue pain control. I attest to the content of the Intraoperative Record and any orders documented therein. Any exceptions are noted below.
--- NOTE | 2024-07-05 20:06 | Anesthesiology Progress Note ---
Date of Service July 05, 2024 Anesthesia Post Procedure Vital Signs Vital Signs: Temp Pulse Resp BP Pulse Ox O2 Del Method O2 Flow Rate 07/05/24 19:55 67 18 153/86 H 96 Oxymask 4 07/05/24 19:45 97.0 F L 73 20 163/87 H 97 Oxymask 6 07/05/24 11:59 99.7 F H 69 18 140/80 93 Room Air 07/05/24 11:16 98.2 F 74 16 145/70 H 90 Room Air 07/05/24 07:17 98.2 F 83 17 129/73 97 Room Air Pain Intensity Right Hand: Pain Intensity: 10 Transfer of Care Handoff Completed per policy Notes Mental Status: alert / awake / arousable and participated in evaluation Patient Amnestic to Procedure: Yes Nausea / Vomiting: adequately controlled Pain: adequately controlled Airway Patency, RR, SpO2: stable & adequate BP & HR: stable & adequate Hydration State: stable & adequate Anesthetic Complications: no major complications apparent and Pt Satisfied with anesthetic care
[2024-07-05] MEDS ORDERED: ONDANSETRON INJ 2 MG/ML 2 ML VIAL IV PRN (21:09)
[2024-07-06 07:23] LABS: Basophils # (auto) 0.02 K/uL (0.00-0.20); Basophils % (auto) 0.1 %; Hematocrit (blood only) 32.8 % (42.0-52.0); Hemoglobin 11.4 g/dl (14.0-18.0); Immature Granulocytes # (auto) 0.11 K/uL (0.01-0.20); Immature Granulocytes % (auto) 0.7 %; Lymphocytes # (auto) 0.88 K/uL (1.20-3.40); Mean Corpuscular Hemoglobin 31.4 pg (25.0-34.0); Mean Corpuscular Hgb Conc 34.8 g/dL (32.0-36.0); Mean Corpuscular Volume 90.4 fL (80.0-100.0); Mean Platelet Volume 10.4 fL (9.4-12.4); Monocytes # (auto) 1.53 K/uL (0.11-0.59); Monocytes % (auto) 10.4 %; Neutrophils # (auto) 12.16 K/uL (1.40-6.50); Neutrophils % (auto) 82.8 %; Platelet Count 162 K/uL (130-400); RDW Coefficient of Variation 12.1 % (11.5-14.5); Red Blood Count 3.63 M/uL (4.70-6.10)
[2024-07-06 08:11] LABS: Potassium 4.2 mmol/L (3.5-5.1)
[2024-07-06 08:12] LABS: BUN Creatinine Ratio 15.3 (10-20); Calcium 8.1 mg/dl (8.6-10.3); Creatinine Clr Calc Pharmacy 73.4 ml/min
--- NOTE | 2024-07-06 08:55 | Orthopedic Progress Note ---
Date of Service July 06, 2024 Assessment & Plan (1) Post-operative infection: Plan: POD #1 status post right hand incision and drainage, open CTR, removal orthopedic hardware, pain much improved. POD #3 s/p R hand I&D, removal hardware, antibiotic bead placement. Resume diet. PT/OT Continue wound vac, Wound Care consult to change Monday RICE Encouraged to move fingers Appreciate ID input. Cultures grew out S. aureus. recommended IV Ancef 2g q8H. Continue care per primary service. Continue pain medication and DVT prophylaxis per primary service. Admission and Anticipated Discharge Date Admission Date: July 03, 2024 Subjective Pain is much improved Physical Exam Physical Exam: RUE: Sensation to light touch improved: Thumb 50%, IF 25%, MF 30%, RF 30/80%, SF 80%. BCR < 2 sec. Decreased swelling hand and digits. Dorsal hand/wrist erythema. Pins removed. Wound vac in place, functioning Hand is warm to touch Hand and forearm soft, mild tenderness at proximal wound vac Results & Data Vital Signs (Past 12 Hours) Vital Signs Temp Pulse Pulse Resp BP Pulse Ox O2 Del Method 07/06/24 07:19 36.4 C L 62 16 124/70 93 Nasal Cannula 07/06/24 02:26 36.8 C 79 16 111/69 93 Nasal Cannula 07/05/24 23:53 36.9 C 71 16 122/71 95 Nasal Cannula 07/05/24 22:40 36.8 C 74 16 124/71 95 Nasal Cannula 07/05/24 21:40 36.7 C 78 16 124/74 96 Nasal Cannula 07/05/24 21:08 36.8 C 74 16 132/77 96 Nasal Cannula O2 Flow Rate 07/06/24 07:19 2.5 07/06/24 02:26 2 07/05/24 23:53 2 07/05/24 22:40 2 07/05/24 21:40 2 07/05/24 21:08 2 Laboratory Results Laboratory Results WBC 14.70 K/ul (4.8-10.8) H 07/06/24 06:51 RBC 3.63 M/uL (4.70-6.10) L 07/06/24 06:51 Hgb 11.4 g/dl (14.0-18.0) L 07/06/24 06:51 Hct 32.8 % (42.0-52.0) L 07/06/24 06:51 MCV 90.4 fL (80.0-100.0) 07/06/24 06:51 MCH 31.4 pg (25.0-34.0) 07/06/24 06:51 MCHC 34.8 g/dL (32.0-36.0) 07/06/24 06:51 RDW Std Deviation 41.0 fL (36.4-46.3) 07/06/24 06:51 RDW Coeff of Cali 12.1 % (11.5-14.5) 07/06/24 06:51 Plt Count 162 K/uL (130-400) 07/06/24 06:51 MPV 10.4 fL (9.4-12.4) 07/06/24 06:51 Immature Gran % (Auto) 0.7 % 07/06/24 06:51 Neut % (Auto) 82.8 % 07/06/24 06:51 Lymph % (Auto) 6.0 % 07/06/24 06:51 [place] % (Auto) 10.4 % 07/06/24 06:51 Eos % (Auto) 0.0 % 07/06/24 06:51 Baso % (Auto) 0.1 % 07/06/24 06:51 Neut # (Auto) 12.16 K/uL (1.40-6.50) H 07/06/24 06:51 Lymph # (Auto) 0.88 K/uL (1.20-3.40) L 07/06/24 06:51 [place] # (Auto) 1.53 K/uL (0.11-0.59) H 07/06/24 06:51 Eos # (Auto) 0.00 K/uL (0.00-0.50) 07/06/24 06:51 Baso # (Auto) 0.02 K/uL (0.00-0.20) 07/06/24 06:51 Immature Gran # (Auto) 0.11 K/uL (0.01-0.20) 07/06/24 06:51 Dohle Bodies 1+ 07/03/24 06:52 ESR 40 mm/hr (0-20) H 07/04/24 04:03 Sodium 135 mmol/L (136-145) L 07/06/24 06:51 Potassium 4.2 mmol/L (3.5-5.1) 07/06/24 06:51 Chloride 99 mmol/L (98-107) 07/06/24 06:51 Carbon Dioxide 31 mmol/L (21-32) 07/06/24 06:51 Anion Gap 5 (3-11) 07/06/24 06:51 BUN 15 mg/dl (6-23) 07/06/24 06:51 Creatinine 0.98 mg/dl (0.6-1.4) 07/06/24 06:51 Est Cr Clr Drug Dosing 73.4 ml/min 07/06/24 06:51 eGFR 86.11 07/06/24 06:51 BUN/Creatinine Ratio 15.3 (10-20) 07/06/24 06:51 Glucose 132 mg/dl (70-99(Fasting)) H 07/06/24 06:51 Calcium 8.1 mg/dl (8.6-10.3) L 07/06/24 06:51 Phosphorus 1.6 mg/dl (2.5-4.9) L 07/03/24 06:52 Total Bilirubin 0.8 mg/dl (0.2-1.0) 07/02/24 21:24 AST 30 U/L (13-39) 07/02/24 21:24 ALT 25 U/L (7-52) 07/02/24 21:24 Alkaline Phosphatase 68 U/L (34-104) 07/02/24 21:24 C-Reactive Protein 28.93 mg/dl (0-0.5) H 07/04/24 04:03 Total Protein 6.5 gm/dl (6.0-8.3) 07/02/24 21:24 Albumin 3.0 gm/dl (3.4-5.0) L 07/03/24 06:52 Globulin 2.7 gm/dl (2.5-4.0) 07/02/24 21:24 Albumin/Globulin Ratio 1.4 (0.9-2) 07/02/24 21:24 Random Vancomycin 6.4 mcg/ml (10-20) L 07/05/24 06:09 Staphylococcus sp PCR DETECTED (NotDetected) A 07/03/24 11:53 Staph aureus (PCR) DETECTED (NotDetected) A 07/03/24 11:53 mecA/C & MREJ Resist Gene MRSA Not Detected (NotDetected) 07/03/24 11:53 Bld Cult ID Panel PCR See PCR Comment (NotDetected) 07/03/24 11:[address] 07/03/24 06:33 CT hand RT wo con HISTORY: 63 years-old Male Eval for abscess/osteomylitis acute pain of the right hand. Clinical concern for soft tissue infection with possible abscess. COMPARISON: Radiographs 07/02/2024, 06/03/2024. TECHNIQUE: Multiple axial CT images of the right hand were obtained without IV contrast. Additional 3-D rendered images were generated from a separate workstation. A dose lowering technique was used consistent with the principals of RAMAN. FINDINGS: Subacute comminuted intra-articular fracture involving the base of the fifth metacarpal is redemonstrated status post placement of two K wires which traverse the base of the fifth metacarpal. One of the K wires is oriented along the long axis of the metacarpal and distal tip extends into the hamate and capitate hamate articulation. The second transversely oriented K wire traverses the base of the fifth metacarpal and also extends into the base of the fourth metacarpal and partially into the base of the third metacarpal. Alignment is unchanged from yesterday's radiographs. No additional acute fracture or dislocation. 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 There is moderate diffuse subcutaneous and deep tissue edema. There is an ovoid intramuscular fluid collection of the volar hand which is noted along the volar base to mid shaft fifth metacarpal extending in between the fourth and fifth metacarpals which measures 1.0 x 1.3 x 2.9 cm with peripheral enhancement. IMPRESSION: 1. Fixated subacute comminuted intra-articular fifth metacarpal fracture. 2. Findings suggestive of moderate to extensive cellulitis with 2.9 cm probable abscess. ACT 112: Negative or not required by law. The above report was generated using voice recognition software. It may contain grammatical, syntax or spelling errors. Electronically signed by: Jarred Alvarez M.D. 07/03/2024 10:04 AM Hand X-Ray 07/03/24 14:36 XR hand RT min 3V routine HISTORY: 63 years-old Male post op right hand I D; fracture incision and drainage of the right hand COMPARISON: CT of same day TECHNIQUE: 4 views of the right hand FINDINGS: Status post removal of the transversely oriented K wire with persistent longitudinally oriented K wire in place. Unchanged positioning of the comminuted fifth metacarpal base fracture. Persistent soft tissue swelling. Status post placement of antibiotic seeds within the medial hand. Overlying cast limits the study. IMPRESSION: Postoperative findings as above. ACT 112: Negative or not required by law. The above report was generated using voice recognition software. It may contain grammatical, syntax or spelling errors. Electronically signed by: Jarred Alvarez M.D. 07/03/2024 3:07 PM Venous Doppler Study 07/04/24 08:54 US venous doppler UE RT CLINICAL HISTORY: pain, swelling PROCEDURE: Right upper extremity real-time compression venous ultrasound with Duplex and color Doppler imaging. Comparison: None available at the time of this dictation. FINDINGS/IMPRESSION: There is normal compressibility of the deep venous system from the forearm through the subclavian vein. Normal vascular flow is currently identified. No evidence of superficial thrombosis is identified. ACT 112: Negative or not required by law. Electronically signed by: Migel Lester M.D. 07/04/2024 11:22 AM Microbiology 07/05/24 Unknown Gram Stain - Final Hand,Right 07/05/24 Unknown Gram Stain - Final Hand,Right 07/03/24 11:56 Aerobic Blood Culture - Preliminary Blood No growth in Aerobic bottle after 48 hours. Anaerobic Blood Culture - Final 07/03/24 11:53 Aerobic Blood Culture - Preliminary Blood Gram positive cocci clusters Anaerobic Blood Culture - Preliminary No growth in Anaerobic bottle after 48 hours. 07/02/24 Unknown Gram Stain - Final Hand Aerobic and Anaerobic Culture - Preliminary Staphylococcus aureus Staphylococcus aureus#2 07/03/24 13:29 Gram Stain - Preliminary Hand,Right Aerobic and Anaerobic Culture - Preliminary Staphylococcus aureus Staphylococcus aureus#2 (1) Post-operative infection Encounter type: initial encounter Postoperative infection type: unspecified type Qualified Code(s): T81.40XA - Infection following a procedure, unspecified, initial encounter
--- NOTE | 2024-07-06 12:05 | Hospitalist Progress Note ---
Date of Service July 06, 2024 Assessment & Plan (1) Post-operative infection: Plan: Involving right hand after pinning of right fifth metacarpal fracture last month. Staph isolated on swab culture. Sensitivities show this to be MSSA. 1 of 4 blood cultures from July 03 positive for gram-positive cocci in clusters which appear to be staph RES. PICC line will not be placed until repeat blood cultures are negative. Infectious disease consultation appreciated. He remains on Ancef 2 g IV every 8 hours. Vancomycin has been discontinued. Orthopedic consultation and recommendations appreciated. Incision and drainage procedure #1 completed on July 03. On procedure #2 completed on July 05. He now has a wound VAC in place on the right hand and is much more comfortable since carpal tunnel release performed. Right upper extremity venous Doppler negative for DVT. (2) Closed right hand fracture: Plan: Right fifth metacarpal fracture was repaired with pins last month. Both pins have subsequently been removed Plan Eventual discharge to home on continued IV antibiotics when cleared by orthopedics. Admission and Anticipated Discharge Date Admission Date: July 03, 2024 Subjective The patient is much more comfortable with much less pain after undergoing surgery again yesterday, July 05, on the right hand with further debridement and carpal tunnel release. Wound VAC is now in place. Blood culture from July 03 is likely Staph aureus pathogen according to microbiology. PICC line will not be placed until blood cultures are negative. Blood cultures repeated again today, July 06. He remains on intravenous Ancef. Review of Systems 2 Review of Systems: Constitutionalno fever. No shaking chills since antibiotics started upon arrival ENTno blurred vision, no double vision, no epistaxis, no sore throat Respiratoryno cough, no wheezing, no shortness of breath Cardiacno palpitations, no chest pain, no syncope Jeff nausea, vomiting, diarrhea, melena, hematochezia GUno urinary retention, no urinary incontinence, no dysuria, no hematuria Musculoskeletalright hand with wound VAC in place. 2 fixation wires for the fifth metacarpal fracture have been removed. Right hand fingers remain warm with good capillary refill Skinno bruising, no rashes, no pruritus Neurono isolated weakness. He no longer has any paresthesia involving the right hand Psychno depression, no anxiety Physical Exam 2 Physical Exam: General-alert and oriented x3, no fever HEENT-head atraumatic and normocephalic, pupils equal and reactive to light, extraocular muscles intact Neck-no lymphadenopathy or thyromegaly, trachea midline Chest-clear to auscultation. No rales, wheezing or rhonchi Cardiac-regular rate and rhythm, normal S1 and S2 Abdomen-normal bowel sounds, no hepatosplenomegaly Extremities-wound VAC is in place now on the right hand. Fingers are not discolored and are warm with good capillary refill. Neuro-cranial nerves II through XII intact, motor and sensory function within normal limits, strength symmetrical, no focal deficits Psych-normal affect, normal mood Results & Data Results & Data Vital Signs (Past 12 Hours) Vital Signs Temp Pulse Pulse Resp BP Pulse Ox O2 Del Method 07/06/24 07:19 36.4 C L 62 16 124/70 93 Nasal Cannula 07/06/24 02:26 36.8 C 79 16 111/69 93 Nasal Cannula O2 Flow Rate 07/06/24 07:19 2.5 07/06/24 02:26 2 Laboratory Results 07/06/24 06:51 07/06/24 06:51 PG Care Time/CCT Total # of Minutes Spent Total Time Spent with Patient: Total time spent is greater than 50% in coordination of care (as documented) at patient's floor/unit and/or counseling patient: Coding Level of Care Code 95083 SUB INP/OBS CARE 2/35MIN Diagnoses Post-operative infection T81.40XA Encounter type: initial encounter Postoperative infection type: unspecified type Closed right hand fracture S62.91XA (1) Post-operative infection Encounter type: initial encounter Postoperative infection type: unspecified type Qualified Code(s): T81.40XA - Infection following a procedure, unspecified, initial encounter
[2024-07-06] MEDS: MAGNESIUM HYDROXIDE SUSP 30 ML UDC PO PRN (18:49)
[2024-07-07 07:32] LABS: Basophils # (auto) 0.03 K/uL (0.00-0.20); Basophils % (auto) 0.3 %; Eosinophils # (auto) 0.13 K/uL (0.00-0.50); Eosinophils % (auto) 1.4 %; Hematocrit (blood only) 30.6 % (42.0-52.0); Hemoglobin 10.4 g/dl (14.0-18.0); Immature Granulocytes # (auto) 0.22 K/uL (0.01-0.20); Immature Granulocytes % (auto) 2.3 %; Lymphocytes # (auto) 1.77 K/uL (1.20-3.40); Lymphocytes % (auto) 18.6 %; Mean Corpuscular Hemoglobin 30.4 pg (25.0-34.0); Mean Corpuscular Volume 89.5 fL (80.0-100.0); Mean Platelet Volume 10.1 fL (9.4-12.4); Monocytes # (auto) 1.34 K/uL (0.11-0.59); Monocytes % (auto) 14.1 %; Neutrophils # (auto) 6.03 K/uL (1.40-6.50); Neutrophils % (auto) 63.3 %; Platelet Count 209 K/uL (130-400); RDW Coefficient of Variation 12.4 % (11.5-14.5); RDW Standard Deviation 40.5 fL (36.4-46.3); Red Blood Count 3.42 M/uL (4.70-6.10); White Blood Count 9.52 K/ul (4.8-10.8)
[2024-07-07 08:06] LABS: Calcium 7.8 mg/dl (8.6-10.3); Potassium 3.5 mmol/L (3.5-5.1)
[2024-07-07 08:12] LABS: BUN Creatinine Ratio 17.3 (10-20); Creatinine Clr Calc Pharmacy 88.8 ml/min
--- NOTE | 2024-07-07 09:04 | Orthopedic Progress Note ---
Date of Service July 07, 2024 Assessment & Plan (1) Post-operative infection: Plan: POD #2 status post right hand incision and drainage, open CTR, removal orthopedic hardware, pain much improved. POD #4 s/p R hand I&D, removal hardware, antibiotic bead placement. Resume diet. PT/OT Continue wound vac, Wound Care consult to change Monday RICE Encouraged to move fingers, FRANCISCO Appreciate ID input. Cultures grew out MSSA following both surgeries. Recommend ed IV Ancef 2g q8H. Most recent Blood Cx pending. Await negative Blood Cx prior to PICC placement. Continue care per primary service. Continue pain medication and DVT prophylaxis per primary service. Admission and Anticipated Discharge Date Admission Date: July 03, 2024 Subjective Feeling much better. Having gas and feels like he needs to burp. Physical Exam Physical Exam: RUE: Sensation to light touch improved: Thumb 90%, IF 80%, MF 70%, RF 70/80%, SF 80%. BCR < 2 sec. Decreased swelling hand and digits. Dorsal hand/wrist erythema. Pins removed. Wound vac in place, functioning Hand is warm to touch Hand and forearm soft, mild tenderness at proximal wound vac Results & Data Vital Signs (Past 12 Hours) Vital Signs Temp Pulse Resp BP Pulse Ox O2 Del Method 07/07/24 07:46 36.5 C 54 L 16 106/63 93 Room Air 07/06/24 23:00 36.4 C L 88 18 151/72 H 94 Room Air Laboratory Results 07/07/24 Range/Units 07:12 WBC 9.52 (4.8-10.8) K/ul RBC 3.42 L (4.70-6.10) M/uL Hgb 10.4 L (14.0-18.0) g/dl Hct 30.6 L (42.0-52.0) % MCV 89.5 (80.0-100.0) fL MCH 30.4 (25.0-34.0) pg MCHC 34.0 (32.0-36.0) g/dL RDW Std Deviation 40.5 (36.4-46.3) fL RDW Coeff of [place] 12.4 (11.5-14.5) % Plt Count 209 (130-400) K/uL MPV 10.1 (9.4-12.4) fL Immature Gran % (Auto) 2.3 % Neut % (Auto) 63.3 % Lymph % (Auto) 18.6 % [place] % (Auto) 14.1 % Eos % (Auto) 1.4 % Baso % (Auto) 0.3 % Neut # (Auto) 6.03 (1.40-6.50) K/uL Lymph # (Auto) 1.77 (1.20-3.40) K/uL [place] # (Auto) 1.34 H (0.11-0.59) K/uL Eos # (Auto) 0.13 (0.00-0.50) K/uL Baso # (Auto) 0.03 (0.00-0.20) K/uL Immature Gran # (Auto) 0.22 H (0.01-0.20) K/uL Sodium 136 (136-145) mmol/L Potassium 3.5 (3.5-5.1) mmol/L Chloride 102 (98-107) mmol/L Carbon Dioxide 29 (21-32) mmol/L Anion Gap 5 (3-11) BUN 14 (6-23) mg/dl Creatinine 0.81 (0.6-1.4) mg/dl Est Cr Clr Drug Dosing 88.8 ml/min eGFR 98.46 BUN/Creatinine Ratio 17.3 (10-20) Glucose 106 H (70-99(Fasting)) mg/dl Calcium 7.8 L (8.6-10.3) mg/dl Microbiology 07/03/24 11:53 Aerobic Blood Culture - Preliminary Blood Staphylococcus aureus Anaerobic Blood Culture - Preliminary No growth in Anaerobic bottle after 48 hours. 07/03/24 11:56 Aerobic Blood Culture - Preliminary Blood Gram positive cocci clusters Anaerobic Blood Culture - Final 07/05/24 Unknown Gram Stain - Final Hand,Right Aerobic and Anaerobic Culture - Preliminary Staphylococcus aureus Staphylococcus aureus#2 07/05/24 Unknown Gram Stain - Final Hand,Right Aerobic and Anaerobic Culture - Preliminary Staphylococcus aureus Staphylococcus aureus#2 07/03/24 13:29 Gram Stain - Preliminary Hand,Right Aerobic and Anaerobic Culture - Preliminary Staphylococcus aureus Staphylococcus aureus#2 07/03/24 13:29 Gram Stain - Preliminary Hand,Right Aerobic and Anaerobic Culture - Preliminary Staphylococcus aureus Staphylococcus aureus#2 07/03/24 13:29 Gram Stain - Preliminary Hand,Right Aerobic and Anaerobic Culture - Preliminary Staphylococcus aureus Staphylococcus aureus#2 Spec: [id number] Collected: 07/05/24-UNK Received: 07/05/24-[address]: Keith Schaffer MD Copy To: Jean Carlos Denson MD Source: Hand,Right OV Order: Ordered: Aer/Arcelia Cult/Sm Comments: Comment 2. Deeper Forearm- Right Side Procedure Result Verified Site Gram Stain Final 07/06/24 Gram Stain Result Many WBCs Seen Few Gram Positive Cocci Aero/Arcelia Cult Preliminary 07/06/24-1348 Organism 1 Staphylococcus aureus Quantity Few Sens Sensitivities to Follow Organism 2 Staphylococcus aureus#2 Quantity Few Sens Sensitivities to Follow (1) Post-operative infection Encounter type: initial encounter Postoperative infection type: unspecified type Qualified Code(s): T81.40XA - Infection following a procedure, unspecified, initial encounter
[2024-07-07] MEDS: PANTOprazole 40 MG TAB PO SCH (10:14)
--- NOTE | 2024-07-07 15:02 | Hospitalist Progress Note ---
Date of Service July 07, 2024 Assessment & Plan (1) Post-operative infection: Plan: Involving right hand after pinning of right fifth metacarpal fracture last month. Staph isolated on swab culture. Sensitivities show this to be MSSA. 1 of 4 blood cultures from July 03 positive for gram-positive cocci in clusters which appear to be pathogenic staph. PICC line will not be placed until repeat blood cultures are negative. Blood culture sent #2 obtained July 06 and negative to date. Infectious disease consultation appreciated. He remains on Ancef 2 g IV every 8 hours. Vancomycin has been discontinued. Orthopedic consultation and recommendations appreciated. Incision and drainage procedure #1 completed on July 03. On procedure #2 completed on July 05. He now has a wound VAC in place on the right hand and is much more comfortable since carpal tunnel release performed. Right upper extremity venous Doppler negative for DVT. (2) Closed right hand fracture: Plan: Right fifth metacarpal fracture was repaired with pins last month. Both pins have subsequently been removed (3) Prostatism: Plan: states that he has had some symptoms at home which were aggravated postoperatively. Scheduled dosing of Flomax at bedtime has been ordered. Plan Eventual discharge to home on continued IV antibiotics when cleared by orthopedics. Admission and Anticipated Discharge Date Admission Date: July 03, 2024 Subjective Alert and oriented. No new problems. Intermittent right hand discomfort as expected after fracture, 2 separate I&D procedures and removal of hardware. He has some symptoms of prostatism and scheduled dosing of Flomax at bedtime has been ordered. Second set of blood cultures done yesterday, July 06, remains negative to date. PICC line will be placed once blood culture results are finalized negative. Infectious disease consultation appreciated. He remains on intravenous Ancef. Review of Systems 2 Review of Systems: Constitutionalno fever. No shaking chills since antibiotics started upon arrival ENTno blurred vision, no double vision, no epistaxis, no sore throat Respiratoryno cough, no wheezing, no shortness of breath Cardiacno palpitations, no chest pain, no syncope Jeff nausea, vomiting, diarrhea, melena, hematochezia GUno urinary retention, no urinary incontinence, no dysuria, no hematuria Musculoskeletalright hand with wound VAC in place. 2 fixation wires for the fifth metacarpal fracture have been removed. Right hand fingers remain warm with good capillary refill Skinno bruising, no rashes, no pruritus Neurono isolated weakness. He no longer has any paresthesia involving the right hand Psychno depression, no anxiety Physical Exam 2 Physical Exam: General-alert and oriented x3, no fever HEENT-head atraumatic and normocephalic, pupils equal and reactive to light, extraocular muscles intact Neck-no lymphadenopathy or thyromegaly, trachea midline Chest-clear to auscultation. No rales, wheezing or rhonchi Cardiac-regular rate and rhythm, normal S1 and S2 Abdomen-normal bowel sounds, no hepatosplenomegaly Extremities-wound VAC is in place now on the right hand. Fingers are not discolored and are warm with good capillary refill. Neuro-cranial nerves II through XII intact, motor and sensory function within normal limits, strength symmetrical, no focal deficits Psych-normal affect, normal mood Results & Data Results & Data Vital Signs (Past 12 Hours) Vital Signs Temp Pulse Resp BP Pulse Ox O2 Del Method 07/07/24 14:14 36.7 C 65 16 119/53 L 95 Room Air 07/07/24 07:46 36.5 C 54 L 16 106/63 93 Room Air Laboratory Results 07/07/24 07:12 07/07/24 07:12 PG Care Time/CCT Total # of Minutes Spent Total Time Spent with Patient: Total time spent is greater than 50% in coordination of care (as documented) at patient's floor/unit and/or counseling patient: Coding Level of Care Code 83456 SUB INP/OBS CARE 3/50MIN Diagnoses Post-operative infection T81.40XA Encounter type: initial encounter Postoperative infection type: unspecified type Closed right hand fracture S62.91XA Prostatism N40.0 (1) Post-operative infection Encounter type: initial encounter Postoperative infection type: unspecified type Qualified Code(s): T81.40XA - Infection following a procedure, unspecified, initial encounter
[2024-07-07] MEDS: TAMSULOSIN HCL 0.4 MG CAP PO SCH (21:31)
[2024-07-08 07:43] LABS: Hematocrit (blood only) 30.4 % (42.0-52.0); Hemoglobin 10.4 g/dl (14.0-18.0); Mean Corpuscular Hgb Conc 34.2 g/dL (32.0-36.0); Mean Corpuscular Volume 90.5 fL (80.0-100.0); Mean Platelet Volume 9.9 fL (9.4-12.4); Platelet Count 262 K/uL (130-400); RDW Coefficient of Variation 12.4 % (11.5-14.5); Red Blood Count 3.36 M/uL (4.70-6.10); White Blood Count 10.87 K/ul (4.8-10.8)
[2024-07-08 07:51] LABS: BUN Creatinine Ratio 13.1 (10-20); Calcium 7.7 mg/dl (8.6-10.3); Creatinine Clr Calc Pharmacy 85.6 ml/min; Potassium 3.5 mmol/L (3.5-5.1)
[2024-07-08 08:07] LABS: Basophils # (auto) 0.07 K/uL (0.00-0.20); Basophils % (auto) 0.6 %; Eosinophils # (auto) 0.32 K/uL (0.00-0.50); Eosinophils % (auto) 2.9 %; Immature Granulocytes # (auto) 0.84 K/uL (0.01-0.20); Immature Granulocytes % (auto) 7.7 %; Lymphocytes # (auto) 1.78 K/uL (1.20-3.40); Lymphocytes % (auto) 16.4 %; Monocytes # (auto) 1.45 K/uL (0.11-0.59); Monocytes % (auto) 13.3 %; Neutrophils # (auto) 6.41 K/uL (1.40-6.50); Neutrophils % (auto) 59.1 %; Toxic Granulation 1+
--- NOTE | 2024-07-08 09:05 | Infectious Disease Progress Nt ---
Date of Service July 08, 2024 Assessment & Plan (1) MSSA (methicillin susceptible Staphylococcus aureus) infection: (2) Post-operative infection: (3) Closed right hand fracture: Plan 63yo M, right hand dominant, with h/o BPH, GERD, right 5th metacarpal fracture in May after punching a table s/p closed reduction percutaneous pinning on 06/14 who presented on 07/02 with worsening right hand pain, swelling, and redness x 5 days. 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 Here he was febrile to 38.3, BP stable. Exam noted with significant edema with erythema of the entirety of right hand including digits an surfaces, sanguinous drainage from insertion of proximal pin, redness extending to middle of right forearm. Initial labs with WBC 14.7, Cr 1.07, LFT wnl. Swab cx with MSSA. CT hand with fixated subacute comminuted intra-articular fifth metacarpal fracture, findings suggestive of moderate to extensive cellulitis with 2.9cm probable abscess (ovoid intramuscular fluid collection of the volar hand which is noted along the volar base to mid-shaft fifth metacarpal, extending between fourth and fifth metacarpal). S/p OR 07/03 and underwent right hand I+D, placement of antibiotic beads, and removal of hardware x 1 (per op note, proximal K wire was removed, soft tissue tunnel debrided). Postop XR with one remaining longitudinal K wire. He has received vancomycin and CTX. ID consulted 07/04. OR cx with 2 types of MSSA. BCx with MSSA. Continued to have significant RUE swelling. S/p OR 07/05 and underwent R hand I+D, carpal tunnel release, hardware removal (per op note, remaining K wire was removed, tenosynovitis and adhesions along forearm flexor tendon removed, purulent drainage within carpal tunnel, there was devitalized necrotic soft tissue that was removed). Given MSSA bacteremia and degree of infection, will favor longer course of IV antibiotics. Martha ordered TTE, awaiting repeat BCX negative x 48hrs. # MSSA bacteremia # Right hand postop infection s/p I+D and all hardware removal (surgery 07/03 and 07/05) # Right hand/forearm cellulitis # H/o R 5th metacarpal fracture s/p CRPP - I ordered TTE given MSSA bacteremia - f/u BCX from 07/06 - if TTE neg and BCX remain no growth x 48hrs, plan will be 4 weeks of cefazolin IV due to bacteremia (starting from first negative BCX presumptive 07/06, end 08/02) - no PICC until BCX are negative x 48hrs ID will continue to follow. If questions or concerns, contact via [facility] or Infectious Disease Call Center . Debra Terry MD [facility], Division of Infectious Diseases IDConnect: [phone] Admission and Anticipated Discharge Date Admission Date: July 03, 2024 Subjective Subsequent visit was provided via telemedicine using two-way real-time interactive telecommunication between the patient and the telemedicine provider. For the duration of the visit, the provider was performing the assessment from a different facility than the patient. This includesuse of bluetooth stethoscope forauscultationperformed by the telepresenter that the telemedicine provider can hear if described in the physical exam. [employer] contact information: Please call ID Connect Call Center . (Phone Number For Physician Use Only) After establishing a telemedicine visit, patient was: Patient was verified with two unique identifiers, Patient/authorized rep acknowledged consent and understanding and Gave permission to continue telehealth session Time Spent with Patient: Subsequent => 55 min Patient reports improvement in right hand. Swelling and redness is better. Numbness improving. No abdominal pain, vomiting, diarrhea. Physical Exam Physical Exam: General: Awake, alert, no acute distress HEENT: NC/AT, EOMI, mmm Neck: supple Lungs: respirations non-labored Heart: nl peripheral perfusion Abdomen: soft, NT/ND Ext: right arm dressing in place Neuro: moving all extremities Results & Data Vital Signs (Past 12 Hours) Vital Signs Temp Pulse Resp BP Pulse Ox O2 Del Method 07/08/24 06:22 36.7 C 64 18 112/68 92 Room Air 07/08/24 05:40 36.5 C 67 16 127/74 95 Room Air (2) Post-operative infection Encounter type: initial encounter Postoperative infection type: unspecified type Qualified Code(s): T81.40XA - Infection following a procedure, unspecified, initial encounter
--- NOTE | 2024-07-08 11:53 | Hospitalist Progress Note ---
Date of Service July 08, 2024 Assessment & Plan (1) Post-operative infection: Plan: Involving right hand after pinning of right fifth metacarpal fracture last month. Staph isolated on swab culture. Sensitivities show this to be MSSA. 1 of 4 blood cultures from July 03 positive for gram-positive cocci in clusters which appear to be pathogenic staph. PICC line will not be placed until repeat blood cultures are negative. Blood culture sent #2 obtained July 06 and negative to date. Infectious disease consultation appreciated. He remains on Ancef 2 g IV every 8 hours. Vancomycin has been discontinued. Orthopedic consultation and recommendations appreciated. s/p Incision and drainage procedure He now has a wound VAC in place on the right hand and is much more comfortable since carpal tunnel release performed. Right upper extremity venous Doppler negative for DVT. May need further OR washout (2) Closed right hand fracture: Plan: Right fifth metacarpal fracture was repaired with pins last month. Both pins have subsequently been removed (3) Prostatism: Plan: states that he has had some symptoms at home which were aggravated postoperatively. Scheduled dosing of Flomax at bedtime has been ordered. Plan Still on wound vac, pending final ID and ortho recs. Admission and Anticipated Discharge Date Admission Date: July 03, 2024 Subjective Patient reports improvement in right hand. Swelling and redness is better. Numbness improving. Review of Systems Review of Systems: All systems reviewed are negative, apart from the ones contained in the history. Physical Exam Physical Exam: The patient is awake, alert and oriented 3, well developed and well nourished, normocephalic and atraumatic, lying in bed and in no acute distress. HEENT--PERRL, EOMI, mucous membranes and oropharynx mildly dry Neck--supple. No JVD. No bruits. Thyroid normal, trachea midline, no adenopathy. Heart--normal S1 and S2. No murmurs, rubs or gallops. Lungs--clear bilaterally, no respiratory distress, no accessory muscle use. Abdomen--normal bowel sounds and soft. Extremities--wound vac in situ Dermatologic--normal skin turgor, normal color, no abnormal lymph nodes, no rash. Neurologic--cranial nerves II through XII grossly intact. Rheumatologic--normal range of motion. Psychiatric--normal affect. Results & Data Results & Data Vital Signs (Past 12 Hours) Vital Signs Temp Pulse Resp BP Pulse Ox O2 Del Method 07/08/24 06:22 98.1 F 64 18 112/68 92 Room Air 07/08/24 05:40 97.7 F 67 16 127/74 95 Room Air PG Care Time/CCT Total # of Minutes Spent Total Time Spent with Patient: Total time spent is greater than 50% in coordination of care (as documented) at patient's floor/unit and/or counseling patient: Coding Level of Care Code 35294 SUB INP/OBS CARE 2/35MIN Diagnoses Post-operative infection T81.40XA Encounter type: initial encounter Postoperative infection type: unspecified type Closed right hand fracture S62.91XA Prostatism N40.0 Time Spent (min) 35 (1) Post-operative infection Encounter type: initial encounter Postoperative infection type: unspecified type Qualified Code(s): T81.40XA - Infection following a procedure, unspecified, initial encounter
--- NOTE | 2024-07-08 12:42 | Orthopedic Progress Note ---
Date of Service July 08, 2024 Assessment & Plan (1) MSSA (methicillin susceptible Staphylococcus aureus) infection: Plan Patient is improving, no signs of infection today Wound vac changed today 07/08, plan to changed Monday with [facility] [employer] consulted Dr Lu for possible skin graft. Elevate and Ice Pain control and DVT prophylaxis per primary Continue diet Continue care per primary team Blood cultures pending but currently negative PICC line tomorrow once cx neg for 48 hours Wound cx growing staph ID recommends continuing Ancef IV Follow ESR and CRP, white count and neutrophil count trending down Admission and Anticipated Discharge Date Admission Date: July 03, 2024 Supervising Physician Co-Signing Physician Notes I, Dr. Schaffer, saw and examined the patient today and agree with the above findings and plan of care, I developed. Subjective Patient reports improvement in right hand. Swelling and redness is better. Numbness improving. Pain much improved. Physical Exam Physical Exam: Redness improved and swelling slightly improved in forearm but still swollen in hand. He is able to wiggle his fingers. Pain has improved and he is able to tolerate light touch. Sensation improved reports full sensation 5th, 4th - 95/90, 3rd- 90, 4th- 90, thumb - 95 Wound vac was changed today. No signs of infection. Muscle beefy red and viable. Results & Data Vital Signs (Past 12 Hours) Vital Signs Temp Pulse Resp BP Pulse Ox O2 Del Method 07/08/24 06:22 36.7 C 64 18 112/68 92 Room Air 07/08/24 05:40 36.5 C 67 16 127/74 95 Room Air Laboratory Results 07/08/24 Range/Units 07:03 WBC 10.87 H (4.8-10.8) K/ul RBC 3.36 L (4.70-6.10) M/uL Hgb 10.4 L (14.0-18.0) g/dl Hct 30.4 L (42.0-52.0) % MCV 90.5 (80.0-100.0) fL MCH 31.0 (25.0-34.0) pg MCHC 34.2 (32.0-36.0) g/dL RDW Std Deviation 41.0 (36.4-46.3) fL RDW Coeff of [place] 12.4 (11.5-14.5) % Plt Count 262 (130-400) K/uL MPV 9.9 (9.4-12.4) fL Immature Gran % (Auto) 7.7 % Neut % (Auto) 59.1 % Lymph % (Auto) 16.4 % [place] % (Auto) 13.3 % Eos % (Auto) 2.9 % Baso % (Auto) 0.6 % Neut # (Auto) 6.41 (1.40-6.50) K/uL Lymph # (Auto) 1.78 (1.20-3.40) K/uL [place] # (Auto) 1.45 H (0.11-0.59) K/uL Eos # (Auto) 0.32 (0.00-0.50) K/uL Baso # (Auto) 0.07 (0.00-0.20) K/uL Immature Gran # (Auto) 0.84 H (0.01-0.20) K/uL Toxic Granulation 1+ ESR 32 H (0-20) mm/hr Sodium 136 (136-145) mmol/L Potassium 3.5 (3.5-5.1) mmol/L Chloride 100 (98-107) mmol/L Carbon Dioxide 30 (21-32) mmol/L Anion Gap 6 (3-11) BUN 11 (6-23) mg/dl Creatinine 0.84 (0.6-1.4) mg/dl Est Cr Clr Drug Dosing 85.6 ml/min eGFR 97.38 BUN/Creatinine Ratio 13.1 (10-20) Glucose 101 H (70-99(Fasting)) mg/dl Calcium 7.7 L (8.6-10.3) mg/dl C-Reactive Protein 11.56 H (0-0.5) mg/dl
[2024-07-08 13:48] LABS: C Reactive Protein 11.56 mg/dl (0-0.5)
--- NOTE | 2024-07-08 23:38 | XCELERA ---
[id number]
[2024-07-09 08:04] LABS: Hemoglobin 10.6 g/dl (14.0-18.0); Mean Corpuscular Hemoglobin 31.5 pg (25.0-34.0); Mean Corpuscular Hgb Conc 34.2 g/dL (32.0-36.0); Platelet Count 304 K/uL (130-400); RDW Coefficient of Variation 12.4 % (11.5-14.5); RDW Standard Deviation 41.7 fL (36.4-46.3); Red Blood Count 3.37 M/uL (4.70-6.10); White Blood Count 11.17 K/ul (4.8-10.8)
[2024-07-09 08:23] LABS: Calcium 8.1 mg/dl (8.6-10.3); Potassium 3.9 mmol/L (3.5-5.1)
[2024-07-09 08:24] LABS: ALC (manual) 1.68 K/uL (1.2-3.4); ANC (manual) 7.48 K/uL (1.4-6.5); Basophils # (manual) 0.11 K/uL (0-0.2); Basophils % (manual) 1 %; Eosinophils # (manual) 0.67 K/uL (0-0.50); Eosinophils % (manual) 6 %; Lymphocytes # (manual) 1.68 K/uL (1.2-3.4); Lymphocytes % (manual) 15 %; Metamyelocytes # (manual) 0.34 K/uL (0-0); Metamyelocytes % (manual) 3 %; Monocytes # (manual) 0.78 K/uL (0.11-0.59); Monocytes % (manual) 7 %; Myelocytes # (manual) 0.11 K/uL (0-0); Myelocytes % (manual) 1 %; Neutrophils # (manual) 7.48 K/uL (1.40-6.50); Neutrophils % (manual) 67 %; RBC Morphology Unremarkable
--- NOTE | 2024-07-09 09:12 | Surgery Consultation ---
Date of Consultation July 09, 2024 Assessment & Plan (1) MSSA bacteremia: (2) Closed right hand fracture: (3) Staph aureus infection: (4) MSSA (methicillin susceptible Staphylococcus aureus) infection: Plan Patient seen and examined. Wound vac in place, but able to view most recent inpatient wound image. Plan is for wound vac changes Mon, Wed, Fri. Hardeep is aware that wound vac will most likely be in place for a while to decrease size of wound. Dr. Lu will discuss possible skin graft/flap placement with patient when she is able to view wound in person. She will plan on seeing patient tomorrow, Monday. History of Present Illness Reason for Consultation: evaluate for possible skin graft of right hand. Attending Physician: Leanne Sorenson MD History of Present Illness Hardeep is a 63-year-old male who is s/p Right Fifth Metacarpal Fracture Closed Reduction Percutaneous Pinning with Dr. Schaffer on 06/14 after sustaining injury from punching a table. He reports that he was doing very well following his surgery. Around 2 weeks after his surgery, he reports that his hand started to hurt, became swollen and very red. He reported to [facility] ED for evaluation on 07/03. Hardeep was admitted for IV antibiotics. CT imaging was completed and showed presence of an abscess. Dr. Schaffer took patient to OR for Right Hand Incision and Drainage, placement of antibiotic beads, Removal Orthopedic hardware x 1. Two days later on 07/05 he was taken back to the OR for Right Hand Irrigation and Debridement, Right Carpal Tunnel Release, Orthopedic Hardware Removal, Wound Vacuum Application. Today, Hardeep reports that he is feeling better. Reports that pain is much improved. Wound vac is in place and was changed yesterday. Currently on IV Ancef. Infectious Disease is currently following. Allergies Allergy/AdvReac Type Severity Reaction Status Date / Time No Known Allergies Allergy Verified 07/05/24 11:58 Home Medications Medication Instructions Recorded Confirmed Type celecoxib 200 mg capsule 200 mg PO BID PRN DIRECTED 07/02/24 07/02/24 History oxycodone 5 mg tablet 5 mg PO UD PRN Pain 07/02/24 07/02/24 History Patient History Medical History Post-operative infection BPH (benign prostatic hyperplasia) GERD (gastroesophageal reflux disease) History of colon polyps Surgical History Hx of vasectomy History of tooth extraction Hx of LASIK History of cataract surgery right/left History of hernia repair inguinal History of tonsillectomy History of colonoscopy Family History Uncle Family history of diabetes mellitus Grandmother (Paternal) Diabetes Family history of diabetes mellitus Father Hypertension Stroke Mother Lung cancer Grandfather (Maternal) Myocardial infarction Grandfather (Paternal) Myocardial infarction Other No family history of adverse response to anesthesia Denies family history of Ovarian cancer Prostate cancer Breast cancer Colorectal cancer Social History Smoking Status: Never smoker Second Hand Exposure: Yes ( A CHILD); Do You Dip or Chew Tobacco: No; Hx Alcohol Use: Yes Alcohol type: wine Alcohol Intake Frequency: Monthly or Less Hx Substance Use: No Preferred Language: Japanese Communication Ability: Effective Visual Impairment: Limited Hearing Ability: Normal Document Improvement Specialist Required: No Beliefs That Will Affect Care: None marital status: Current Living Situation: Spouse current occupational status: employed current occupation: [employer] How many Children do You have: 4 Other Information That Helps Us Care for You: No Feels Safe at Home: Yes Safety Concerns: Feels Safe At This Time Childhood Exposure to Second-Hand Smoke: Yes Diet: regular caffeine: No Dental Care, Regularly: Yes Physical Activity Frequency: 3-4 Times per Week Seatbelt Use: always Sunscreen Use: Yes Assistive Devices: None Assistive Devices Comment: Arm immobilzer Review of Systems Constitutional: as per Subjective / HPI; no fever and no chills Integumentary: as per Subjective / HPI Physical Exam Physical Exam: Wound vac in place over dorsal aspect of right hand. Constitutional: WD/WN, vitals as above Results & Data Vital Signs (Past 12 Hours) Vital Signs Temp Pulse Resp BP Pulse Ox O2 Del Method 07/09/24 07:30 36.7 C 59 L 16 132/72 93 Room Air PG Care Time/CCT Total # of Minutes Spent Total Time Spent with Patient: Total time spent is greater than 50% in coordination of care (as documented) at patient's floor/unit and/or counseling patient: Coding Level of Care Code 18032 IN/OBS CONSULT LVL 3,45M Diagnoses MSSA bacteremia R78.81; B95.61 Closed right hand fracture S62.91XA Staph aureus infection A49.01 MSSA (methicillin susceptible Staphylococcus aureus) infection A49.01
--- NOTE | 2024-07-09 09:35 | Infectious Disease Progress Nt ---
Date of Service July 09, 2024 Assessment & Plan (1) MSSA bacteremia: (2) MSSA (methicillin susceptible Staphylococcus aureus) infection: (3) Post-operative infection: (4) Closed right hand fracture: Plan 63yo M, right hand dominant, with h/o BPH, GERD, right 5th metacarpal fracture in May after punching a table s/p closed reduction percutaneous pinning on 06/14 who presented on 07/02 with worsening right hand pain, swelling, and redness x 5 days. 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 Here he was febrile to 38.3, BP stable. Exam noted with significant edema with erythema of the entirety of right hand including digits an surfaces, sanguinous drainage from insertion of proximal pin, redness extending to middle of right forearm. Initial labs with WBC 14.7, Cr 1.07, LFT wnl. Swab cx with MSSA. CT hand with fixated subacute comminuted intra-articular fifth metacarpal fracture, findings suggestive of moderate to extensive cellulitis with 2.9cm probable abscess (ovoid intramuscular fluid collection of the volar hand which is noted along the volar base to mid-shaft fifth metacarpal, extending between fourth and fifth metacarpal). S/p OR 07/03 and underwent right hand I+D, placement of antibiotic beads, and removal of hardware x 1 (per op note, proximal K wire was removed, soft tissue tunnel debrided). Postop XR with one remaining longitudinal K wire. He has received vancomycin and CTX. ID consulted 07/04. OR cx with 2 types of MSSA. BCx with MSSA. Continued to have significant RUE swelling. S/p OR 07/05 and underwent R hand I+D, carpal tunnel release, hardware removal (per op note, remaining K wire was removed, tenosynovitis and adhesions along forearm flexor tendon removed, purulent drainage within carpal tunnel, there was devitalized necrotic soft tissue that was removed). TTE negative for vegetations. No other hardware or site of infection. Given MSSA bacteremia and degree of infection, will favor longer course of IV antibiotics. # MSSA bacteremia ngtd 07/06, TTE neg # Right hand postop infection s/p I+D and all hardware removal (surgery 07/03 and 07/05) # Right hand/forearm cellulitis # H/o R 5th metacarpal fracture s/p CRPP - continue cefazolin 2g IV q8h - he will need longer course of abx given bacteremia - PICC may be placed given negative BCX Discharge plan: - cefazolin 2g IV q8h x 4 weeks (start 07/06, end 08/02) - monitor weekly CBC w diff and CMP while on IV abx - he will need follow up with local ID provider ID will discontinue active follow up at this time. Please do not hesitate to reconsult the Infectious Diseases service as needed. Debra Terry MD [facility], Division of Infectious Diseases IDConnect: [phone] Admission and Anticipated Discharge Date Admission Date: July 03, 2024 Subjective This patient recommendation is based on a telemedicine consult request which was completed asynchronously through chart review and information provided by the primary physician. The patient was not seen or examined today. The evaluation is consultative in nature and all patient care and treatment decisions can either be accepted or rejected by the patient's primary hospital-based treating physician using their own independent medical judgment for their patient. Time Spent Reviewing Chart: 31+ minutes Results & Data Vital Signs (Past 12 Hours) Vital Signs Temp Pulse Resp BP Pulse Ox O2 Del Method 07/09/24 07:30 36.7 C 59 L 16 132/72 93 Room Air Laboratory Results Labs reviewed. Diagnostic Findings Imaging reviewed. (3) Post-operative infection Encounter type: initial encounter Postoperative infection type: unspecified type Qualified Code(s): T81.40XA - Infection following a procedure, unspecified, initial encounter
--- NOTE | 2024-07-09 10:39 | Orthopedic Progress Note ---
Date of Service July 09, 2024 Assessment & Plan (1) MSSA (methicillin susceptible Staphylococcus aureus) infection: Plan: The patient was educated regarding today's findings. Conservative care measures were discussed. The patient is improving, no signs of infection today Wound vac was changed 07/08, plan to change later today with [facility] consulted Dr Lu for possible skin graft. Elevate and Ice Continue pain control and DVT prophylaxis per primary Continue diet Continue care per primary team Blood cultures still preliminary but currently negative after 48 hours PICC line can hopefully be placed today Wound cx growing staph x2 ID recommends continuing Ancef IV Follow ESR and CRP, white count and neutrophil count trending down Admission and Anticipated Discharge Date Admission Date: July 03, 2024 Subjective This 63-year-old male is seen today in his room. He is 4 days status post right hand incision, irrigation and debridement. He states he is doing better today. He has been able to slightly flex his fingers. He states his pain is well- controlled. He thinks there is less redness and a minor improvement in swelling. He denies any fevers or chills. No other complaints. Physical Exam Physical Exam: General: Well-developed, well-nourished, middle-aged male, in no acute distress. Laying in bed. Alert and oriented. Skin: Warm and dry with good turgor. No rashes. Wound VAC is in place on the right hand. He continues to have erythema over the dorsum of the hand. Fingers remain swollen but there is no erythema. No swelling to the forearm. Musculoskeletal: The patient has intact motor function of the thumb, index, recurrent long, and ring fingers. He is able to ever so slightly flex his DIP joint on the index, long, and ring fingers. No motion yet at the little finger. Thumb flexion is also intact. Flexion of the digits does cause active firing of his flexor muscle bellies on the forearm. Neurologic: Gross sensation is intact across the tips of each of the digits. He estimates 8 to 10% deficit in the index finger and 5% in the ring and thumb. Full sensation in the little finger. Capillary refill is equal for each of the digits. Results & Data Vital Signs (Past 12 Hours) Vital Signs Temp Pulse Resp BP Pulse Ox O2 Del Method 07/09/24 07:30 36.7 C 59 L 16 132/72 93 Room Air Laboratory Results CBC obtained this morning shows a white count of 11.17. H&H of 10.6 and 31.0. Platelets are normal at 304,000. PRP obtained today is unremarkable. Blood cultures obtained previously show no growth after 48 hours.
--- NOTE | 2024-07-09 11:15 | Hospitalist Progress Note ---
Date of Service July 09, 2024 Assessment & Plan (1) Post-operative infection: Plan: Involving right hand after pinning of right fifth metacarpal fracture last month. Staph isolated on swab culture. Sensitivities show this to be MSSA. 1 of 4 blood cultures from July 03 positive for gram-positive cocci in clusters which appear to be pathogenic staph. PICC line will not be placed until repeat blood cultures are negative. Blood culture sent #2 obtained July 06 and negative to date. Infectious disease consultation appreciated. He remains on Ancef 2 g IV every 8 hours. Vancomycin has been discontinued. Orthopedic consultation and recommendations appreciated. s/p Incision and drainage procedure He now has a wound VAC in place on the right hand and is much more comfortable since carpal tunnel release performed. Right upper extremity venous Doppler negative for DVT. May need further OR washout and skin graft per plastic surgery (2) Closed right hand fracture: Plan: Right fifth metacarpal fracture was repaired with pins last month. Both pins have subsequently been removed May need skin graft with a flap (3) Prostatism: Plan: states that he has had some symptoms at home which were aggravated postoperatively. Scheduled dosing of Flomax at bedtime has been ordered. Plan Still on wound vac, pending final ID and ortho recs. Admission and Anticipated Discharge Date Admission Date: July 03, 2024 Subjective patient seen and examined, says the hand is better, the swelling and redness Review of Systems Review of Systems: All systems reviewed are negative, apart from the ones contained in the history. Physical Exam Physical Exam: The patient is awake, alert and oriented 3, well developed and well nourished, normocephalic and atraumatic, lying in bed and in no acute distress. HEENT--PERRL, EOMI, mucous membranes and oropharynx mildly dry Neck--supple. No JVD. No bruits. Thyroid normal, trachea midline, no adenopathy. Heart--normal S1 and S2. No murmurs, rubs or gallops. Lungs--clear bilaterally, no respiratory distress, no accessory muscle use. Abdomen--normal bowel sounds and soft. Extremities--wound vac in situ Dermatologic--normal skin turgor, normal color, no abnormal lymph nodes, no rash. Neurologic--cranial nerves II through XII grossly intact. Rheumatologic--normal range of motion. Psychiatric--normal affect. Results & Data Results & Data Vital Signs (Past 12 Hours) Vital Signs Temp Pulse Resp BP Pulse Ox O2 Del Method 07/09/24 07:30 98.1 F 59 L 16 132/72 93 Room Air PG Care Time/CCT Total # of Minutes Spent Total Time Spent with Patient: Total time spent is greater than 50% in coordination of care (as documented) at patient's floor/unit and/or counseling patient: Coding Level of Care Code 18051 SUB INP/OBS CARE 2/35MIN Diagnoses Post-operative infection T81.40XA Encounter type: initial encounter Postoperative infection type: unspecified type Closed right hand fracture S62.91XA Prostatism N40.0 Time Spent (min) 35 (1) Post-operative infection Encounter type: initial encounter Postoperative infection type: unspecified type Qualified Code(s): T81.40XA - Infection following a procedure, unspecified, initial encounter
[2024-07-09] MEDS: CeleBREX 200 MG CAP PO SCH (20:31)
--- NOTE | 2024-07-10 09:56 | Orthopedic Progress Note ---
Date of Service July 10, 2024 Assessment & Plan (1) MSSA (methicillin susceptible Staphylococcus aureus) infection: Plan: The patient was educated regarding today's findings. Conservative care measures were discussed. His was inquiring about involving a reconstructive hand surgeon specialist. She may discuss this further with Dr. Schaffer later today. Anticipate his wound VAC will be changed later today with the wound care nurse and Dr. Schaffer. Elevate and Ice the hand frequently Continue pain control and DVT prophylaxis per primary Continue diet Blood cultures still preliminary but currently negative after 72 hours Wound cx growing staph x2 ID recommends continuing Ancef IV Follow ESR and CRP, white count and neutrophil count trending down. No new lab work obtained this morning. Admission and Anticipated Discharge Date Admission Date: July 03, 2024 Subjective This 63-year-old male is seen today in his room. His is at bedside. He is 5 days status post right hand incision, irrigation and debridement. He states he did very well overnight until around 4 AM. His pain increased at that time. He feels the swelling has increased since last night as well. He has been able to slightly flex his fingers. He states his pain is well-controlled. He thinks there is a little more redness and more swelling than last night. He denies any fevers or chills. No other complaints. Physical Exam Physical Exam: General: Well-developed, well-nourished, middle-aged male, in no acute distress. Laying in bed. Alert and oriented. Skin: Warm and dry with good turgor. No rashes. Wound VAC is in place on the right hand. He continues to have erythema over the dorsum of the hand. Fingers remain swollen but there is no erythema. No swelling to the forearm. Musculoskeletal: The patient has intact motor function of the thumb, index, recurrent long, and ring fingers. He is able to ever so slightly flex his DIP joint on the index, long, and ring fingers. No motion yet at the little finger. Thumb flexion is also intact. Flexion of the digits does cause active firing of his flexor muscle bellies on the forearm. Neurologic: Gross sensation is intact across the tips of each of the digits. He estimates 5% deficit in the index finger and 5% in the ring and thumb. He continues to have full sensation in the little finger. Capillary refill is equal for each of the digits. Results & Data Vital Signs (Past 12 Hours) Vital Signs Temp Pulse BP Pulse Ox O2 Del Method 07/10/24 07:28 36.6 C 60 137/77 96 Room Air
--- NOTE | 2024-07-10 12:07 | Hospitalist Progress Note ---
Date of Service July 10, 2024 Assessment & Plan (1) Post-operative infection: Plan: Involving right hand after pinning of right fifth metacarpal fracture last month. Staph isolated on swab culture. Sensitivities show this to be MSSA. 1 of 4 blood cultures from July 03 positive for gram-positive cocci in clusters which appear to be pathogenic staph. PICC line will be placed following negaive blood culture Infectious disease consultation appreciated. He remains on Ancef 2 g IV every 8 hours. Vancomycin has been discontinued. Orthopedic consultation and recommendations appreciated. s/p Incision and drainage procedure He now has a wound VAC in place on the right hand and is much more comfortable since carpal tunnel release performed. Right upper extremity venous Doppler negative for DVT. Will have his wound vac changed on Monday before possible discharge will follow up with surgery and wound care outpatient May need skin graft at some point per plastic surgery (2) Closed right hand fracture: Plan: Right fifth metacarpal fracture was repaired with pins last month. Both pins have subsequently been removed May need skin graft with a flap (3) Prostatism: Plan: states that he has had some symptoms at home which were aggravated postoperatively. Scheduled dosing of Flomax at bedtime has been ordered. Plan Still on wound vac, possible d/c on Monday Admission and Anticipated Discharge Date Admission Date: July 03, 2024 Subjective seen and examined, signed consent for MITZI martinez, feels the hand is a little i mproved Review of Systems Review of Systems: All systems reviewed are negative, apart from the ones contained in the history. Physical Exam Physical Exam: The patient is awake, alert and oriented 3, well developed and well nourished, normocephalic and atraumatic, lying in bed and in no acute distress. HEENT--PERRL, EOMI, mucous membranes and oropharynx mildly dry Neck--supple. No JVD. No bruits. Thyroid normal, trachea midline, no adenopathy. Heart--normal S1 and S2. No murmurs, rubs or gallops. Lungs--clear bilaterally, no respiratory distress, no accessory muscle use. Abdomen--normal bowel sounds and soft. Extremities--wound vac in situ Dermatologic--normal skin turgor, normal color, no abnormal lymph nodes, no rash. Neurologic--cranial nerves II through XII grossly intact. Rheumatologic--normal range of motion. Psychiatric--normal affect. Results & Data Results & Data Vital Signs (Past 12 Hours) Vital Signs Temp Pulse BP Pulse Ox O2 Del Method 07/10/24 07:28 97.9 F 60 137/77 96 Room Air PG Care Time/CCT Total # of Minutes Spent Total Time Spent with Patient: Total time spent is greater than 50% in coordination of care (as documented) at patient's floor/unit and/or counseling patient: Coding Level of Care Code 22996 SUB INP/OBS CARE 2/35MIN Diagnoses Post-operative infection T81.40XA Encounter type: initial encounter Postoperative infection type: unspecified type Closed right hand fracture S62.91XA Prostatism N40.0 Time Spent (min) 35 (1) Post-operative infection Encounter type: initial encounter Postoperative infection type: unspecified type Qualified Code(s): T81.40XA - Infection following a procedure, unspecified, initial encounter
[2024-07-10 12:22] LABS: Hematocrit (blood only) 32.6 % (42.0-52.0); Hemoglobin 11.1 g/dl (14.0-18.0); Mean Corpuscular Hemoglobin 31.2 pg (25.0-34.0); Mean Corpuscular Volume 91.6 fL (80.0-100.0); Mean Platelet Volume 9.6 fL (9.4-12.4); Platelet Count 358 K/uL (130-400); RDW Coefficient of Variation 12.1 % (11.5-14.5); RDW Standard Deviation 40.9 fL (36.4-46.3); Red Blood Count 3.56 M/uL (4.70-6.10); White Blood Count 10.37 K/ul (4.8-10.8)
[2024-07-10 12:39] LABS: BUN Creatinine Ratio 13.6 (10-20); Calcium 8.2 mg/dl (8.6-10.3); Creatinine Clr Calc Pharmacy 88.8 ml/min; Potassium 4.3 mmol/L (3.5-5.1)
--- NOTE | 2024-07-10 17:28 | Surgery Progress Note ---
Date of Service July 10, 2024 Assessment & Plan Admission and Anticipated Discharge Date Admission Date: July 03, 2024 Supervising Physician Co-Signing Physician Notes Wounds do appear to be healthy and clean at this time. However, given extent of edema primary closure is unlikely to be feasible. Given tendon exposure, he would likely need to build up a bit of granulation tissue in order to allow a graft to be successful. There may be risk of loss of function in doing this. I think it is very reasonable to have the patient evaluated by hand surgeon. I did explain to the patient and that I agree they would be best served by seeing a plastic surgeon who specializes in hand. I am happy to facilitate any referrals needed. In the meantime, continue the VAC to help promote healing and decrease edema. Subjective Patient is seen today at bedside just after his wound VAC change. He is status post right hand metacarpal fracture with percutaneous pin placement, resulting cellulitis and abscess, status post incision and drainage, placement of antibiotic beads, removal of hardware, return to operating room for carpal tunnel release. Cultures showed MSSA, is on Ancef. 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 He is 5 days status post most recent procedure and has been treated with a wound VAC since that time. Physical Exam Physical Exam: Wound VAC was in place today, significant swelling of the hand, limited range of motion secondary to swelling and pain. Photos were reviewed. Dorsal hand wound over fourth metacarpal measures about 8 cm in length 4 cm in width, with exposed EDC tendons. Smaller wound over second metacarpal measures about 3 cm in length, again with exposed tendon. Approximately 5 cm volar wrist wound with exposed tendon, wound is closed over carpal tunnel Results & Data Vital Signs (Past 12 Hours) Vital Signs Temp Pulse Resp BP Pulse Ox O2 Del Method 07/10/24 15:21 97.5 F L 78 18 135/82 96 Room Air 07/10/24 07:28 97.9 F 60 137/77 96 Room Air PG Care Time/CCT Total # of Minutes Spent Total Time Spent with Patient: Total time spent is greater than 50% in coordination of care (as documented) at patient's floor/unit and/or counseling patient: Coding Level of Care Code 50857 SUB INP/OBS CARE 2/35MIN
[2024-07-11 08:21] LABS: Hematocrit (blood only) 31.4 % (42.0-52.0); Hemoglobin 10.6 g/dl (14.0-18.0); Mean Corpuscular Hemoglobin 31.1 pg (25.0-34.0); Mean Corpuscular Hgb Conc 33.8 g/dL (32.0-36.0); Mean Corpuscular Volume 92.1 fL (80.0-100.0); Mean Platelet Volume 9.9 fL (9.4-12.4); Platelet Count 326 K/uL (130-400); RDW Coefficient of Variation 12.2 % (11.5-14.5); RDW Standard Deviation 41.1 fL (36.4-46.3); Red Blood Count 3.41 M/uL (4.70-6.10); White Blood Count 9.47 K/ul (4.8-10.8)
[2024-07-11 08:27] LABS: BUN Creatinine Ratio 10.8 (10-20); Calcium 8.2 mg/dl (8.6-10.3); Creatinine Clr Calc Pharmacy 86.7 ml/min; Potassium 4.2 mmol/L (3.5-5.1)
--- NOTE | 2024-07-11 10:37 | Hospitalist Progress Note ---
Date of Service July 11, 2024 Assessment & Plan (1) Post-operative infection: Plan: Involving right hand after pinning of right fifth metacarpal fracture last month. Staph isolated on swab culture. Sensitivities show this to be MSSA. 1 of 4 blood cultures from July 03 positive for gram-positive cocci in clusters which appear to be pathogenic staph. PICC line has been placed for antibiotics, he will need 4 weeks of Ancef Will have his wound vac changed on Monday before possible discharge will follow up with surgery and wound care outpatient May need skin graft at some point per plastic surgery (2) Closed right hand fracture: Plan: Right fifth metacarpal fracture was repaired with pins last month. Both pins have subsequently been removed May need skin graft with a flap (3) Prostatism: Plan: states that he has had some symptoms at home which were aggravated postoperatively. Scheduled dosing of Flomax at bedtime has been ordered. Plan Still on wound vac, possible d/c on Monday Admission and Anticipated Discharge Date Admission Date: July 03, 2024 Subjective patient seen and examined, piic line has been placed Review of Systems Review of Systems: All systems reviewed are negative, apart from the ones contained in the history. Physical Exam Physical Exam: The patient is awake, alert and oriented 3, well developed and well nourished, normocephalic and atraumatic, lying in bed and in no acute distress. HEENT--PERRL, EOMI, mucous membranes and oropharynx mildly dry Neck--supple. No JVD. No bruits. Thyroid normal, trachea midline, no adenopathy. Heart--normal S1 and S2. No murmurs, rubs or gallops. Lungs--clear bilaterally, no respiratory distress, no accessory muscle use. Abdomen--normal bowel sounds and soft. Extremities--wound vac in situ Dermatologic--normal skin turgor, normal color, no abnormal lymph nodes, no rash. Neurologic--cranial nerves II through XII grossly intact. Rheumatologic--normal range of motion. Psychiatric--normal affect. Results & Data Results & Data Vital Signs (Past 12 Hours) Vital Signs Temp Pulse Resp BP Pulse Ox O2 Del Method 07/11/24 09:19 Room Air 07/11/24 07:28 97.7 F 61 16 162/72 H 98 Room Air PG Care Time/CCT Total # of Minutes Spent Total Time Spent with Patient: Total time spent is greater than 50% in coordination of care (as documented) at patient's floor/unit and/or counseling patient: Coding Level of Care Code 74296 SUB INP/OBS CARE 2/35MIN Diagnoses Post-operative infection T81.40XA Encounter type: initial encounter Postoperative infection type: unspecified type Closed right hand fracture S62.91XA Prostatism N40.0 Time Spent (min) 35 (1) Post-operative infection Encounter type: initial encounter Postoperative infection type: unspecified type Qualified Code(s): T81.40XA - Infection following a procedure, unspecified, initial encounter
--- NOTE | 2024-07-11 11:21 | Orthopedic Progress Note ---
Date of Service July 11, 2024 Assessment & Plan (1) MSSA (methicillin susceptible Staphylococcus aureus) infection: Plan: The patient was educated regarding today's findings. Conservative care measures were discussed. . Anticipate his wound VAC will be changed tomorrow with the wound care nurse and Dr. Schaffer. Elevate and Ice the hand frequently Continue pain control and DVT prophylaxis per primary Continue normal diet Wound cx growing staph x2 ID recommended continuing Ancef IV Follow ESR and CRP, white count and neutrophil count have stabilized. Anticipate discharge to home tomorrow after his wound VAC change. He will follow-up in the training room with Dr. Schaffer on Monday for dressing change and removal of the wound VAC. He will be seen at [place] by Dr. Gary from the hand service at 820 Monday morning. Admission and Anticipated Discharge Date Admission Date: July 03, 2024 Subjective This 63-year-old male is seen today in his room. His is present. He states he did well overnight. He slept well and had minimal discomfort. He denies any fevers or chills. His wound VAC is still working. No additional complaints. He is looking forward to his visit at [place] next week. Physical Exam Physical Exam: General: Well-developed, well-nourished, middle-aged male, in no acute distress. Laying in bed. Alert and oriented. Skin: Warm and dry with good turgor. No rashes. Wound VAC is in place on the right hand. He continues to have erythema over the dorsum of the hand. Fingers remain swollen but there is no erythema. No swelling to the forearm. Musculoskeletal: The patient has intact motor function of the thumb, index, recurrent long, and ring fingers. He is able to ever so slightly flex his DIP joint on the index, long, and ring fingers. No motion again at the little finger. Thumb flexion is also intact. Flexion of the digits does cause active firing of his flexor muscle bellies on the forearm. Neurologic: Gross sensation is intact across the tips of each of the digits. He still estimates 5% deficit in the index finger and 5% in the ring and thumb. He continues to have good sensation in the little finger. Capillary refill is equal for each of the digits. Results & Data Vital Signs (Past 12 Hours) Vital Signs Temp Pulse Resp BP Pulse Ox O2 Del Method 07/11/24 09:19 Room Air 07/11/24 07:28 36.5 C 61 16 162/72 H 98 Room Air Laboratory Results CBC obtained this morning shows a white count of 9.47. H&H of 10.6 and 31.4. Platelets 326,000. Normal PRP today. Normal BUN and creatinine. Glucose 104.
--- NOTE | 2024-07-12 12:26 | Discharge Summary ---
Date of Service July 12, 2024 Admission HPI Per Admitting Provider The patient is a 63-year-old male with past medical history significant for GERD, BPH,and colon polyps, who presents to the emergency department with signs and symptoms of postoperative wound infection right hand after having had surgery 06/14/24 and normal postop recovery for the first 2 weeks. He developed worsening symptoms as noted above, and came to the emergency department evening of 07/02-07/03 for further evaluation and treatment Admission Exam (Per Admitting) Constitutional The patient is awake, alert and oriented 3, well developed and well nourished, normocephalic and atraumatic, lying in bed and in no acute distress. HEENT--PERRL, EOMI, mucous membranes and oropharynx mildly dry Neck--supple. No JVD. No bruits. Thyroid normal, trachea midline, no adenopathy. Heart--normal S1 and S2. No murmurs, rubs or gallops. Lungs--clear bilaterally, no respiratory distress, no accessory muscle use. Abdomen--normal bowel sounds and soft. Extremities--no cyanosis or clubbing. No edema. Dermatologic--normal skin turgor, normal color, no abnormal lymph nodes, no rash. Neurologic--cranial nerves II through XII grossly intact. Rheumatologic--normal range of motion. Psychiatric--normal affect. Discharge Data Consultations 07/03/24 00:41 ED Decision to Admit Stat 07/03/24 01:14 Consult Orthopedic Surgery Routine 07/03/24 15:58 Consult Infectious Diseases Routine 07/08/24 12:11 Consult Plastic Surgery Routine Procedures Performed Operation Date: 07/05/24 07:00 Actual Procedures p Right Hand Irrigation and Debridement, Wound Vacuum Application(Right) - Keith Schaffer MD s Right Carpal Tunnel Release, (Right) - Keith Schaffer MD s Orthopedic Hardware Removal,(Right) - Keith Schaffer MD Hospital Course (1) Post-operative infection: Involving right hand after pinning of right fifth metacarpal fracture last month. Staph isolated on swab culture. Sensitivities show this to be MSSA. 1 of 4 blood cultures from July 03 positive for gram-positive cocci in clusters which appear to be pathogenic staph. PICC line has been placed for antibiotics, he will need 4 weeks of Ancef Will have his wound vac changed on Monday before possible discharge will follow up with surgery and wound care outpatient May need skin graft at some point per plastic surgery (2) Closed right hand fracture: Right fifth metacarpal fracture was repaired with pins last month. Both pins have subsequently been removed May need skin graft with a flap (3) Prostatism: states that he has had some symptoms at home which were aggravated postoperatively. Scheduled dosing of Flomax at bedtime has been ordered. Plan d/c today Coding Level of Care Code 37417 INP/OBS DISCH >30 MIN Diagnoses Post-operative infection T81.40XA Encounter type: initial encounter Postoperative infection type: unspecified type Closed right hand fracture S62.91XA Prostatism N40.0 Time Spent (min) 35
--- NOTE | 2024-07-12 15:40 | Orthopedic Progress Note ---
Date of Service July 12, 2024 Assessment & Plan (1) MSSA (methicillin susceptible Staphylococcus aureus) infection: Plan: Wound VAC was changed today by wound care nurse and photos were placed in her note Elevate and Ice the hand frequently Continue pain control and DVT prophylaxis per primary Continue normal diet Wound cx growing staph x2 ID recommended continuing Ancef IV Follow ESR and CRP, white count and neutrophil count have stabilized. Anticipate discharge to home after his wound VAC change and coarse of IV ABX. He will follow-up in the training room with Dr. Schaffer on Monday for dressing change and removal of the wound VAC. He will be seen at [facility] by Dr. Gary from the hand service at 820 Monday morning. Admission and Anticipated Discharge Date Admission Date: July 03, 2024 Subjective This 63-year-old male is seen today in his room. His is present. He states he did well overnight. He slept well and had minimal discomfort. He denies any fevers or chills. His wound VAC is still working. No additional complaints. He is looking forward to his visit at [facility] next week. Review of Systems Review of Systems: All systems reviewed & are unremarkable except as noted in Subjective Physical Exam Physical Exam: Right hand: Wound VAC is in place on the patient's right upper extremity. Appears to be functioning properly with appropriate suction. He has much less swelling in the hand and compared to his previous visit earlier this week. Patient is able to move his fingers. He does have limited ability to flex and extend at his wrist. He is able to detect light sensation to touch over the pads of his digits. His radial pulses were easily palpable. Results & Data Vital Signs (Past 12 Hours) Vital Signs Temp Pulse Pulse Resp BP Pulse Ox O2 Del Method 07/12/24 13:28 36.9 C 69 60 18 129/77 96 07/12/24 07:44 36.9 C 60 18 129/77 96 Room Air Diagnostic Findings Laboratory Results WBC 9.47 K/ul (4.8-10.8) 07/11/24 07:49 RBC 3.41 M/uL (4.70-6.10) L 07/11/24 07:49 Hgb 10.6 g/dl (14.0-18.0) L 07/11/24 07:49 Hct 31.4 % (42.0-52.0) L 07/11/24 07:49 MCV 92.1 fL (80.0-100.0) 07/11/24 07:49 MCH 31.1 pg (25.0-34.0) 07/11/24 07:49 MCHC 33.8 g/dL (32.0-36.0) 07/11/24 07:49 RDW Std Deviation 41.1 fL (36.4-46.3) 07/11/24 07:49 RDW Coeff of [place] 12.2 % (11.5-14.5) 07/11/24 07:49 Plt Count 326 K/uL (130-400) 07/11/24 07:49 MPV 9.9 fL (9.4-12.4) 07/11/24 07:49 Immature Gran % (Auto) 7.7 % 07/08/24 07:03 Neut % (Auto) 59.1 % 07/08/24 07:03 Lymph % (Auto) 16.4 % 07/08/24 07:03 [place] % (Auto) 13.3 % 07/08/24 07:03 Eos % (Auto) 2.9 % 07/08/24 07:03 Baso % (Auto) 0.6 % 07/08/24 07:03 Neut # (Auto) 6.41 K/uL (1.40-6.50) 07/08/24 07:03 Lymph # (Auto) 1.78 K/uL (1.20-3.40) 07/08/24 07:03 [place] # (Auto) 1.45 K/uL (0.11-0.59) H 07/08/24 07:03 Eos # (Auto) 0.32 K/uL (0.00-0.50) 07/08/24 07:03 Baso # (Auto) 0.07 K/uL (0.00-0.20) 07/08/24 07:03 Immature Gran # (Auto) 0.84 K/uL (0.01-0.20) H 07/08/24 07:03 Neutrophils % (Manual) 67 % 07/09/24 07:10 Lymphocytes % (Manual) 15 % 07/09/24 07:10 Monocytes % (Manual) 7 % 07/09/24 07:10 Eosinophils % (Manual) 6 % 07/09/24 07:10 Basophils % (Manual) 1 % 07/09/24 07:10 Metamyelocytes % (Man) 3 % 07/09/24 07:10 Myelocytes % (Man) 1 % 07/09/24 07:10 Neutrophils # (Manual) 7.48 K/uL (1.40-6.50) H 07/09/24 07:10 Total Absolute Neuts 7.48 K/uL (1.4-6.5) H 07/09/24 07:10 Lymphocytes # (Manual) 1.68 K/uL (1.2-3.4) 07/09/24 07:10 Total Abs Lymphocytes 1.68 K/uL (1.2-3.4) 07/09/24 07:10 Monocytes # (Manual) 0.78 K/uL (0.11-0.59) H 07/09/24 07:10 Eosinophils # (Manual) 0.67 K/uL (0-0.50) H 07/09/24 07:10 Basophils # (Manual) 0.11 K/uL (0-0.2) 07/09/24 07:10 Metamyelocytes # (Man) 0.34 K/uL (0-0) H 07/09/24 07:10 Myelocytes # (Manual) 0.11 K/uL (0-0) H 07/09/24 07:10 Toxic Granulation 1+ 07/08/24 07:03 Dohle Bodies 1+ 07/03/24 06:52 RBC Morphology Unremarkable 07/09/24 07:10 ESR 32 mm/hr (0-20) H 07/08/24 07:03 Sodium 136 mmol/L (136-145) 07/11/24 07:49 Potassium 4.2 mmol/L (3.5-5.1) 07/11/24 07:49 Chloride 104 mmol/L (98-107) 07/11/24 07:49 Carbon Dioxide 28 mmol/L (21-32) 07/11/24 07:49 Anion Gap 4 (3-11) 07/11/24 07:49 BUN 9 mg/dl (6-23) 07/11/24 07:49 Creatinine 0.83 mg/dl (0.6-1.4) 07/11/24 07:49 Est Cr Clr Drug Dosing 86.7 ml/min 07/11/24 07:49 eGFR 97.73 07/11/24 07:49 BUN/Creatinine Ratio 10.8 (10-20) 07/11/24 07:49 Glucose 104 mg/dl (70-99(Fasting)) H 07/11/24 07:49 Calcium 8.2 mg/dl (8.6-10.3) L 07/11/24 07:49 Phosphorus 1.6 mg/dl (2.5-4.9) L 07/03/24 06:52 Total Bilirubin 0.8 mg/dl (0.2-1.0) 07/02/24 21:24 AST 30 U/L (13-39) 07/02/24 21:24 ALT 25 U/L (7-52) 07/02/24 21:24 Alkaline Phosphatase 68 U/L (34-104) 07/02/24 21:24 C-Reactive Protein 11.56 mg/dl (0-0.5) H 07/08/24 07:03 Total Protein 6.5 gm/dl (6.0-8.3) 07/02/24 21:24 Albumin 3.0 gm/dl (3.4-5.0) L 07/03/24 06:52 Globulin 2.7 gm/dl (2.5-4.0) 07/02/24 21:24 Albumin/Globulin Ratio 1.4 (0.9-2) 07/02/24 21:24 Random Vancomycin 6.4 mcg/ml (10-20) L 07/05/24 06:09 Staphylococcus sp PCR DETECTED (NotDetected) A 07/03/24 11:53 Staph aureus (PCR) DETECTED (NotDetected) A 07/03/24 11:53 mecA/C & MREJ Resist Gene MRSA Not Detected (NotDetected) 07/03/24 11:53 Bld Cult ID Panel PCR See PCR Comment (NotDetected) 07/03/24 11:[address] 07/03/24 06:33 CT hand RT wo con HISTORY: 63 years-old Male Eval for abscess/osteomylitis acute pain of the right hand. Clinical concern for soft tissue infection with possible abscess. COMPARISON: Radiographs 07/02/2024, 06/03/2024. TECHNIQUE: Multiple axial CT images of the right hand were obtained without IV contrast. Additional 3-D rendered images were generated from a separate workstation. A dose lowering technique was used consistent with the principals of RAMAN. FINDINGS: Subacute comminuted intra-articular fracture involving the base of the fifth metacarpal is redemonstrated status post placement of two K wires which traverse the base of the fifth metacarpal. One of the K wires is oriented along the long axis of the metacarpal and distal tip extends into the hamate and capitate hamate articulation. The second transversely oriented K wire traverses the base of the fifth metacarpal and also extends into the base of the fourth metacarpal and partially into the base of the third metacarpal. Alignment is unchanged from yesterday's radiographs. No additional acute fracture or dislocation. 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 There is moderate diffuse subcutaneous and deep tissue edema. There is an ovoid intramuscular fluid collection of the volar hand which is noted along the volar base to mid shaft fifth metacarpal extending in between the fourth and fifth metacarpals which measures 1.0 x 1.3 x 2.9 cm with peripheral enhancement. IMPRESSION: 1. Fixated subacute comminuted intra-articular fifth metacarpal fracture. 2. Findings suggestive of moderate to extensive cellulitis with 2.9 cm probable abscess. ACT 112: Negative or not required by law. The above report was generated using voice recognition software. It may contain grammatical, syntax or spelling errors. Electronically signed by: Jarred Alvarez M.D. 07/03/2024 10:04 AM Hand X-Ray 07/03/24 14:36 XR hand RT min 3V routine HISTORY: 63 years-old Male post op right hand I D; fracture incision and dr hickey of the right hand COMPARISON: CT of same day TECHNIQUE: 4 views of the right hand FINDINGS: Status post removal of the transversely oriented K wire with persistent longitudinally oriented K wire in place. Unchanged positioning of the comminuted fifth metacarpal base fracture. Persistent soft tissue swelling. Status post placement of antibiotic seeds within the medial hand. Overlying cast limits the study. IMPRESSION: Postoperative findings as above. ACT 112: Negative or not required by law. The above report was generated using voice recognition software. It may contain grammatical, syntax or spelling errors. Electronically signed by: Jarred Alvarez M.D. 07/03/2024 3:07 PM Venous Doppler Study 07/04/24 08:54 US venous doppler UE RT CLINICAL HISTORY: pain, swelling PROCEDURE: Right upper extremity real-time compression venous ultrasound with Duplex and color Doppler imaging. Comparison: None available at the time of this dictation. FINDINGS/IMPRESSION: There is normal compressibility of the deep venous system from the forearm through the subclavian vein. Normal vascular flow is currently identified. No evidence of superficial thrombosis is identified. ACT 112: Negative or not required by law. Electronically signed by: Migel Lester M.D. 07/04/2024 11:22 AM
== END 2024-07-12 16:18 | disposition home health service (06) | DRG 857 ==
LOC: ED 21:09 → SUATTDRO 07-03 01:14 → 3W 07-03 01:14